=== PATIENT | female | born 1980 | race Hispanic/Latino ===

== ENCOUNTER 2018-11-28 23:06 | Emergency (ER) | payer SELFPAY ==
[2018-11-28] MEDS ORDERED: NA CHLORIDE 0.9% 1,000 ML ONE (23:36)
[2018-11-28] MEDS ORDERED: LABETALOL 20 MG/4ML SYRINGE IV ONE (23:36)
[2018-11-29 00:07] LABS: Absolute Lymphocytes (CBC) 3.8 K/uL (0.7-4.9); Absolute Monocytes 0.5 K/uL (0.1-1.3); Absolute Neutrophil 5.5 K/uL (1.8-8.0); Eosinophils % 0.8 % (0-4.4); Hematocrit 38.9 % (36.0-45.0); Lymphocytes % 37.9 % (15.3-44.8); MPV 9.5 fL (7.6-11.3); Monocytes % 5.1 % (3.3-12.3); RBC Red Blood Cell Count 4.62 M/uL (3.86-4.86)
[2018-11-29 00:22] LABS: Potassium 3.8 mmol/L (3.5-5.1)
[2018-11-29 00:23] LABS: Urine Blood NEGATIVE (NEG); Urine Glucose 2+ (NEG); Urine Protein 1+ (NEG); Urine Specific Gravity 1.005 (1.005-1.030); Urine pH 5.5 (5.0-7.0)
[2018-11-29] MEDS ORDERED: INSULIN -REGULAR HUMAN 50 UNIT/0.5 ML ML ONE (00:40)
--- NOTE | 2018-11-29 01:32 | ER ---
Nurse's Notes [facility] Name: Aida Yan Age: 38 yrs Sex: Female : 1980 Arrival Date: 11/28/2018 Time: 23:08 Bed 13 Private MD: Wilian Willis H Diagnosis: Hyperglycemia, unspecified;Hypertensive Urgency Presentation: 11/28 23:12 Presenting complaint: Patient states: Blood Glucose 430 at home after tonight's dose of tl3 insulin. Transition of care: patient was not received from another setting of care. Onset of symptoms was November 28, 2018. Risk Assessment: Do you want to hurt yourself or someone else? Patient reports no desire to harm self or others. Initial Sepsis Screen: Does the patient meet any 2 criteria? No. Patient's initial sepsis screen is negative. Does the patient have a suspected source of infection? No. Patient's initial sepsis screen is negative. Care prior to arrival: Medication(s) given: Normal saline infusion, novalin 70/30, 30 units. 23:12 Method Of Arrival: Ambulatory tl3 23:12 Acuity: VINICIO 3 tl3 Triage Assessment: 23:14 General: Appears distressed, uncomfortable, Behavior is cooperative, appropriate for tl3 age. Pain: Pain currently is 9 out of 10 on a pain scale. Neuro: Level of Consciousness is awake, alert, obeys commands, Oriented to person, place, time. 23:14 Pain: Also complains of inability to perform activities of daily living. 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 - Social history:: Smoking status: Patient/guardian denies using tobacco, never smoked. - Ebola Screening: : No symptoms or risks identified at this time. Screenin:50 Abuse screen: Denies threats or abuse. Denies injuries from another. Nutritional rr5 screening: No deficits noted. Tuberculosis screening: No symptoms or risk factors identified. Fall Risk Gait- Weak (10 pts.). Total Thompson Fall Scale indicates Low Risk Score (25-44 pts). Fall prevention measures have been instituted. Side Rails Up X 2 Frequent Obs/Assesments occuring As available Patient and Family Educated on Fall Prevention Program and strategies. Assessment: 23:17 General: Appears in no apparent distress. uncomfortable, Behavior is calm, cooperative, rr5 appropriate for age. Pain: Complains of pain in head Pain does not radiate. Pain currently is 7 out of 10 on a pain scale. Quality of pain is described as aching, Pain began gradually, Is intermittent. 23:17 Neuro: Level of Consciousness is awake, alert, obeys commands, Oriented to person, rr5 place, time, situation, Tufting Machine Operator are equal bilaterally Moves all extremities. Full function Gait is unsteady, Speech is normal, Facial symmetry appears normal, Pupils are PERRLA, Reports dizziness, headache. Cardiovascular: Capillary refill < 3 seconds Patient's skin is warm and dry. Respiratory: Airway is patent Respiratory effort is even, unlabored, Respiratory pattern is regular, symmetrical. 23:17 GI: Abdomen is round obese. : No signs and/or symptoms were reported regarding the rr5 genitourinary system. EENT: Reports blurred vision. Derm: Skin is intact, Skin temperature is warm. Musculoskeletal: Capillary refill < 3 seconds, Range of motion: intact in all extremities. 11/29 00:30 Reassessment: Patient appears in no apparent distress at this time. No changes from rr5 previously documented assessment. asleep on bed. 01:29 Reassessment: Patient appears in no apparent distress at this time. Patient and/or rr5 family updated on plan of care and expected duration. Pain level reassessed. Patient is alert, oriented x 3, equal unlabored respirations, skin warm/dry/pink. Patient states feeling better. Patient states symptoms have improved. 01:46 Reassessment: Patient appears in no apparent distress at this time. discharge rr5 instruction given and explained without complaints made. Vital Signs: 11/28 23:14 BP 190 / 100; Pulse 92; Resp 18; Temp 98.8; Pulse Ox 98% ; Weight 90.72 kg; Height 5 tl3 ft. 2 in. (157.48 cm); 23:17 BP 205 / 96; Pulse 97; Resp 15; Pulse Ox 99% ; rr5 23:35 BP 158 / 88; Pulse 83; Resp 17; Pulse Ox 98% ; rr5 23:45 BP 143 / 69; Pulse 82; Resp 17; Pulse Ox 98% ; rr5 11/29 00:35 BP 152 / 83; Pulse 83; Resp 17; Pulse Ox 99% ; rr5 01:29 BP 129 / 61; Pulse 75; Resp 17; Pulse Ox 100% ; rr5 11/28 23:14 Body Mass Index 36.58 (90.72 kg, 157.48 cm) tl3 ED Course: 11/28 23:08 Patient arrived in ED. al2 23:08 Wilian Willis DO is Private Physician. al2 23:12 [facility] jr8 23:13 Francisco Manley MD is Attending Physician. jr8 23:13 Triage completed. tl3 23:14 Arm band placed on right wrist. tl3 23:23 Cristo Lawton RN is Primary Nurse. rr5 23:30 Patient has correct armband on for positive identification. Placed in gown. Bed in low rr5 position. Call light in reach. Side rails up X2. 23:30 Inserted saline lock: 18 gauge in right forearm, using aseptic technique. Blood rr5 collected. 23:32 all purpose clerk on. Pulse ox on. NIBP on. rr5 11/29 00:22 Notified Nurse Practitioner and/or Physician Finance Intern of a critical lab result(s), fc glucose of 457. 01:30 Wilian Willis DO is Referral Physician. jr8 01:47 No provider procedures requiring assistance completed. IV discontinued, intact, rr5 bleeding controlled, No redness/swelling at site. Pressure dressing applied. Administered Medications: 11/28 23:30 Drug: Labetalol 10 mg Route: IVP; Infused Over: 2 mins; Site: right forearm; rr5 11/29 01:47 Follow up: Response: No adverse reaction rr5 11/28 23:30 Drug: NS 0.9% 1000 ml Route: IV; Rate: 1000 ml; Site: right forearm; rr5 11/29 00:39 Follow up: Response: No adverse reaction; IV Status: Completed infusion; IV Intake: rr5 1000ml 00:31 Drug: Insulin Regular Human 10 units {Co-Signature: jd3 (Nick Campos RN).} Route: rr5 IVP; Site: right forearm; 01:47 Follow up: Response: No adverse reaction rr5 Point of Care Testing: Blood Glucose: 11/28 23:21 Blood Glucose: 431 mg/dL; tl3 11/29 00:28 Blood Glucose: 370 mg/dL; rr5 01:29 Blood Glucose: 278 mg/dL; rr5 Ranges: Intake: 00:39 IV: 1000ml; Total: 1000ml. rr5 Outcome: 01:30 Discharge ordered by . jr8 01:47 Discharged to home ambulatory. rr5 01:47 Condition: stable 01:47 Discharge instructions given to patient, Instructed on discharge instructions, follow up and referral plans. Demonstrated understanding of instructions, follow-up care. 01:49 Patient left the ED. rr5 Signatures: Liliam Paz, RN RN Christopher Felix PA PA jr8 Areli Membreno Tammy, RN RN tl3 Cristo Lawton RN RN rr5 Nick Campos RN jd3 Corrections: (The following items were deleted from the chart) 00:05 11/28 23:30 Inserted saline lock: 20 gauge in right forearm, using aseptic technique. rr5 Blood collected. rr5
--- NOTE | 2018-11-29 01:32 | EDPHYS ---
Physician Documentation [facility] Name: Aida Yan Age: 38 yrs Sex: Female : 1980 Arrival Date: 11/28/2018 Time: 23:08 Bed 13 Private MD: Wilian Willis H ED Physician Francisco Manley HPI: 11/29 00:15 This 38 yrs old Female presents to ER via Ambulatory with complaints of jr8 Headache, High Blood Sugar, Blurred Vision. 00:15 Onset: The symptoms/episode began/occurred acutely, today. Associated signs and jr8 symptoms: The patient has no apparent associated signs or symptoms. Severity of symptoms: At its worst the pain was moderate, in the emergency department the pain is unchanged. The patient has not experienced similar symptoms in the past. The patient has not recently seen a physician. Patient stated that she started with [facility] tonight. Checked blood sugar and noted that it was high. Took insulin but was not getting better. Had headache that started shortly after and sugar had elevated even more . 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 - Social history:: Smoking status: Patient/guardian denies using tobacco, never smoked. - Ebola Screening: : No symptoms or risks identified at this time. ROS: 11/29 00:15 Eyes: Negative for injury, pain, redness, and discharge, ENT: Negative for injury, jr8 pain, and discharge, Neck: Negative for injury, pain, and swelling, Respiratory: Negative for shortness of breath, cough, wheezing, and pleuritic chest pain, Abdomen/GI: Negative for abdominal pain, nausea, vomiting, diarrhea, and constipation, Back: Negative for injury and pain, MS/Extremity: Negative for injury and deformity, Skin: Negative for injury, rash, and discoloration. Neuro: Positive for headache, visual changes. Exam: 00:15 Eyes: Pupils equal round and reactive to light, extra-ocular motions intact. Lids and jr8 lashes normal. Conjunctiva and sclera are non-icteric and not injected. Cornea within normal limits. Periorbital areas with no swelling, redness, or edema. ENT: Nares patent. No nasal discharge, no septal abnormalities noted. Tympanic membranes are normal and external auditory canals are clear. Oropharynx with no redness, swelling, or masses, exudates, or evidence of obstruction, uvula midline. Mucous membranes moist. Neck: Trachea midline, no thyromegaly or masses palpated, and no cervical lymphadenopathy. Supple, full range of motion without nuchal rigidity, or vertebral point tenderness. No Meningismus. Cardiovascular: Regular rate and rhythm with a normal S1 and S2. No gallops, murmurs, or rubs. Normal PMI, no JVD. No pulse deficits. Respiratory: Lungs have equal breath sounds bilaterally, clear to auscultation and percussion. No rales, rhonchi or wheezes noted. No increased work of breathing, no retractions or nasal flaring. Abdomen/GI: Soft, non-tender, with normal bowel sounds. No distension or tympany. No guarding or rebound. No evidence of tenderness throughout. Back: No spinal tenderness. No costovertebral tenderness. Full range of motion. Skin: Warm, dry with normal turgor. Normal color with no rashes, no lesions, and no evidence of cellulitis. MS/ Extremity: Pulses equal, no cyanosis. Neurovascular intact. Full, normal range of motion. Neuro: Awake and alert, GCS 15, oriented to person, place, time, and situation. Cranial nerves II-XII grossly intact. Motor strength 5/5 in all extremities. Sensory grossly intact. Cerebellar exam normal. Normal gait. Vital Signs: 11/28 23:14 BP 190 / 100; Pulse 92; Resp 18; Temp 98.8; Pulse Ox 98% ; Weight 90.72 kg; Height 5 tl3 ft. 2 in. (157.48 cm); 23:17 BP 205 / 96; Pulse 97; Resp 15; Pulse Ox 99% ; rr5 23:35 BP 158 / 88; Pulse 83; Resp 17; Pulse Ox 98% ; rr5 23:45 BP 143 / 69; Pulse 82; Resp 17; Pulse Ox 98% ; rr5 11/29 00:35 BP 152 / 83; Pulse 83; Resp 17; Pulse Ox 99% ; rr5 01:29 BP 129 / 61; Pulse 75; Resp 17; Pulse Ox 100% ; rr5 11/28 23:14 Body Mass Index 36.58 (90.72 kg, 157.48 cm) tl3 MDM: 11/28 23:18 Patient medically screened. [facility] 11/29 01:28 Data reviewed: vital signs, nurses notes, lab test result(s), and as a result, I will jr8 discharge patient. Data reviewed: EKG. Data interpreted: Pulse oximetry: on room air is 99 %. Interpretation: normal. Counseling: I had a detailed discussion with the patient and/or guardian regarding: the historical points, exam findings, and any diagnostic results supporting the discharge/admit diagnosis, lab results, the need for outpatient follow up, a family practitioner, to return to the emergency department if symptoms worsen or persist or if there are any questions or concerns that arise at home. Response to treatment: the patient's symptoms have markedly improved after treatment. ED course: Headache and blurred vision have both improved. Glucose to manageable level. Will send home to f/u with PCP. No other acute finding noted at this time . 11/28 23:19 Order name: Basic Metabolic Panel [facility] 11/28 23:19 Order name: CBC with Diff [facility] 11/28 23:33 Order name: Urine Dipstick--Ancillary (enter results) 11/28 23:33 Order name: Urine --Ancillary (enter results) 11/29 00:20 Order name: CBC with Automated Diff; Complete Time: 00:22 [facility] 11/29 00:23 Order name: Urine --Ancillary; Complete Time: 00:25 [facility] 11/28 23:19 Order name: IV Saline Lock; Complete Time: 23:49 [facility] 11/28 23:19 Order name: Labs collected and sent; Complete Time: 23:49 [facility] 11/28 23:19 Order name: EKG - Nurse/Tech; Complete Time: 23:49 [facility] 11/29 00:23 Order name: Urine Dipstick-Ancillary; Complete Time: 00:25 [facility] 11/29 00:24 Order name: Basic Metabolic Panel; Complete Time: 00:25 [facility] 11/28 23:20 Order name: Glucose Level; Complete Time: 23:49 [facility] Administered Medications: 11/28 23:30 Drug: Labetalol 10 mg Route: IVP; Infused Over: 2 mins; Site: right forearm; rr5 11/29 01:47 Follow up: Response: No adverse reaction rr5 11/28 23:30 Drug: NS 0.9% 1000 ml Route: IV; Rate: 1000 ml; Site: right forearm; rr5 11/29 00:39 Follow up: Response: No adverse reaction; IV Status: Completed infusion; IV Intake: rr5 1000ml 00:31 Drug: Insulin Regular Human 10 units {Co-Signature: jd3 (Nick Campos RN).} Route: rr5 IVP; Site: right forearm; 01:47 Follow up: Response: No adverse reaction rr5 Point of Care Testing: Blood Glucose: 11/28 23:21 Blood Glucose: 431 mg/dL; tl3 11/29 00:28 Blood Glucose: 370 mg/dL; rr5 01:29 Blood Glucose: 278 mg/dL; rr5 Ranges: Critical Glucose Levels:Adult <50 mg/dl or >400 mg/dl <40 mg/dl or >180 mg/dl Disposition: 06:29 Co-signature as Attending Physician, Francisco Manley MD I agree with the assessment and hannah plan of care. Disposition: 11/29/18 01:30 Discharged to Home. Impression: Hyperglycemia, unspecified, Hypertensive Urgency . - Condition is Stable. - Discharge Instructions: Hyperglycemia, Hypertension, Blood Glucose Monitoring, Adult. - Medication Reconciliation Form, Thank You Letter, Antibiotic Education, Prescription Opioid Use form. - Follow up: Wilian Willis DO; When: 2 - 3 days; Reason: Recheck today's complaints, Continuance of care, Re-evaluation by your physician. - Problem is new. - Symptoms have improved. Signatures: Dispatcher [employer] Francisco Franks MD MD cha Roszak, Josh, PA PA jr8 Juanita Barry RN RN tl3 Cristo Lawton, AQUILINO RN rr5 Nick Campos RN jd3 Corrections: (The following items were deleted from the chart) 01:49 01:30 11/29/2018 01:30 Discharged to Home. Impression: Hyperglycemia, unspecified; rr5 Hypertensive Urgency . Condition is Stable. Forms are Medication Reconciliation Form, Thank You Letter, Antibiotic Education, Prescription Opioid Use. Follow up: Wilian Willis; When: 2 - 3 days; Reason: Recheck today's complaints, Continuance of care, Re-evaluation by your physician. Problem is new. Symptoms have improved. jr8
[2018-11-29 01:59] VITALS: TEMP 98.8
[2018-11-29 02:13] VITALS: BP 129/61; O2SAT 100
--- NOTE | 2018-11-29 10:23 | EKG ---
Test Date: 2018-11-28 Test Time: 23:39:27 Arresting Gear Operator: RR MEASUREMENT RESULTS: Intervals: Rate: 81 ME: 154 QRSD: 90 QT: 378 QTc: 439 Aguila: P: 36 ME: 154 QRS: 43 T: -11 INTERPRETIVE STATEMENTS: Normal sinus rhythm Nonspecific T wave abnormality Abnormal ECG Compared to ECG 09/23/2017 13:01:39 T-wave abnormality now present Electronically Signed On 11-29-18 10:21:40 DIABETES EDUCATOR by Jayden Marcus
== END 2018-11-29 01:49 | disposition home or self-care (01) ==
LOC: ER 23:06
DX: E11.65 Type 2 diabetes mellitus with hyperglycemia (principal); I16.0 Hypertensive urgency; I10 Essential (primary) hypertension
CPT/HCPCS: 36415; 80048; 81003; 81025; 82962; 85025; 93005; 96361; 96374; 96375; 99284; J7030

== ENCOUNTER 2020-09-12 11:40 | Emergency (ER) | payer SELFPAY ==
--- OUTSIDE RECORDS SUMMARY | 2020-09-12 11:43 | XMS REPORT | Continuity of Care Document ---
:1980 Author Organization [facility] t Address [address] [place] [address] Care Team Providers Name Role Phone Unavailable Unavailable Unavailable Payers Payer Name Policy Type Policy Number Effective Date Expiration Date S ource Problems This patient has no known problems. Allergies, Adverse Reactions, Alerts Allergy Allergy Status Severity Reaction(s) Onset Inactive Treating Comm ents Source Name Type Date Date Clinician No Known DA Active U [facility] Allergie 06-14 [facility] 00[facility] Medications This patient has no known medications. Procedures This patient has no known procedures. Results Test Description Test Time Test Comments Results Result Comments Source B-TYPE NATRIURETIC PEPTIDE 2020-06-15 21:58:00 Test Item Value Reference Range Interpretation Comme nts B-TYPE NATRIURETIC PEPTIDE (test code = BNP) 63.3 PG/ML 0-100 N PROTHROMBIN [id number] 21:51:00 Test Item Value Reference Interpretation Comments Range PROTHROMBIN TIME 10.3 SECONDS 8.7-12.1 N THERAPEUTIC LEVEL: 1.5 TO PATIENT (test code 1.9 TIMES NORMAL RANGE = PTP) INTERNATIONAL 0.9 Recommended Th erapeutic NORMAL RATIO (test PT Ratios For Oral code = INR) AnticoagulantTh erapy. CONDITION INT'L N ORMALIZED PT RATIO------- --- Prophylaxis of venous thrombosis 2.0 - 3.0in [facility] medical or surgicalpati ents, treatment of venousthrombosi s, prevention of e mbolism. Prevention of r ecurrent embolism, 2.5 - 3.5or treatment of patients with mechanicalprost hetic heart valves. LAB ANTICOAGULANT QUERY NOTHROMBOPLASTIN TIME [id number] 21:51:00 Test Item Value Reference Range Interpretation Comments THROMBOPLASTIN TIME PARTIAL 31.0 seconds 22.8-34.4 N (test code = PTT) LAB ANTICOAGULANT QUERY NOD-DIMER [id number] 21:51:00 Test Item Value Reference Range Interpretation Comments D-DIMER QUANT 0.41 mg/L FEU <0.59 "D-DIMER CUT OFF OF 0.50 (test code = mg/L (FEU) IS U SEFUL TO DDIMER) EXCLUDE DXOF DVT/PEExpected value(RI) is less than 0. 59mg/L (FEU) for quynh lhealthy subjects."Lynda landa note: Results of D-di jennifer assays should a lways beinterpreted i n conjunction wit h the patient's medicalhistory, clinical presentation/pr obability and otherfindin gs. LAB ANTICOAGULANT QUERY NOBASIC METABOLIC [id number] 21:50:00 Test Item Value Reference Range Interpretation Comments SODIUM (test code = 136 mmol/L 136-145 N NA) POTASSIUM (test code = 3.5 mmol/L 3.5-5.1 N K) CHLORIDE (test code = 106 mmol/L 98-107 N CL) CARBON DIOXIDE (test 22 mmol/L 21-32 N code = CO2) GLUCOSE (test code = 314 mg/dL 70-100 H GLU) BLOOD UREA NITROGEN 12 mg/dL 7-18 N (test code = BUN) GLOMERULAR FILTRATION > 60.00 >=60 Report ing units: RATE (test code = GFR) mL/mi n/1.73m\\S\\2 (Modified MDRD formula)REFEREN CE RANGE: > or = 6 0 ml/min/1.73M2IF PATIENT IS -CHI N, MULTIPLY REPORT ED RESULT BY1.21. CREATININE (test code 0.90 mg/dL 0.51-0.95 N = CREAT) CALCIUM (test code = 8.3 mg/dL 8.5-10.1 L CA) [id number] 21:50:00 Test Item Value Reference Range Interpretation Comments TROPONIN-I (test <0.015 ng/ml 0.00-0.045 N GUIDELINES: 0.08 - 0.09 code = TROPI) Indeterminate0 .10 Risk Stratifica tion Limit: Suggest sequential te sting0.60 - 1.50 AMI cut off: Myocardial Inju ry by WHO criteria CBC W/AUTO [id number] 21:49:00 Test Item Value Reference Range Interpretation Comments WHITE BLOOD CELL (test code = 15.9 X10(3) 4.5-11.0 H WBC) RED BLOOD CELL (test code = 4.58 X10(6) 4.2-5.4 N RBC) HEMOGLOBIN (test code = HGB) 12.3 g/dL 12.5-16.0 L HEMATOCRIT (test code = HCT) 38.7 % 37.0-47.0 N MEAN CELL VOLUME (test code = 84.5 fl 78-100 N MCV) MEAN CELL HGB (test code = MCH) 26.9 pg 26.0-34.0 N MEAN CELL HGB CONCETRATION 31.8 g/dl 30.0-37.0 N (test code = MCHC) RED CELL DISTRIBUTION WIDTH 13.5 % 11.5-14.5 N (test code = RDW) PLATELET COUNT (test code = 350 X10(3) 150-350 N PLT) MEAN PLATELET VOLUME (test code 11.0 fl 8.7-11.4 N = MPV) NEUTROPHIL % (test code = NT%) 81.6 % 36.0-66.0 H IMMATURE GRANULOCYTE % (test 0.4 % 0.0-2.0 N code = IG%) LYMPHOCYTE % (test code = LY%) 14.9 % 16.0-50.0 L MONOCYTE % (test code = MO%) 3.0 % 0.0-13.0 N EOSINOPHIL % (test code = EO%) 0.0 % 0.0-4.5 N BASOPHIL % (test code = BA%) 0.1 % 0.0-1.5 N NUCLEATED RBC % (test code = 0.0 % 0-0.2 N NRBC%) NEUTROPHIL # (test code = NT#) 12.95 X10(3) 1.70-7.70 H IMMATURE GRANULOCYTE # (test 0.07 X10(3)uL 0.00-0.03 H code = IG#) LYMPHOCYTE # (test code = LY#) 2.36 X10(3) 0.70-4.00 N MONOCYTE # (test code = MO#) 0.47 X10(3) 0.00-0.89 N EOSINOPHIL # (test code = EO#) 0.00 X10(3) 0.00-0.60 N BASOPHIL # (test code = BA#) 0.02 X10(3) 0.00-0.20 N NUCLEATED RBC # (test code = 0.00 K/mm3 0.0-0.1 N NRBC#) BASIC METABOLIC [id number] 21:45:00 Test Item Value Reference Range Interpretation Comments SODIUM (test code = 136 mmol/L 136-145 N NA) POTASSIUM (test code = 3.5 mmol/L 3.5-5.1 N K) CHLORIDE (test code = 106 mmol/L 98-107 N CL) CARBON DIOXIDE (test 22 mmol/L 21-32 N code = CO2) GLUCOSE (test code = 314 mg/dL 70-100 H GLU) BLOOD UREA NITROGEN 12 mg/dL 7-18 N (test code = BUN) GLOMERULAR FILTRATION > 60.00 >=60 Report ing units: RATE (test code = GFR) mL/mi n/1.73m\\S\\2 (Modified MDRD formula)REFEREN CE RANGE: > or = 6 0 ml/min/1.73M2IF PATIENT IS -CHI N, MULTIPLY REPORT ED RESULT BY1.21. CREATININE (test code 0.90 mg/dL 0.51-0.95 N = CREAT) CALCIUM (test code = 8.3 mg/dL 8.5-10.1 L CA) [id number] 21:45:00 Test Item Value Reference Range Interpretation Comments TROPONIN-I (test code = TROPI) ng/ml 0.00-0.045 - XR CHEST 1 [id number] 21:45:00 [facility] Name: WANDA CISSE [address] [facility] Phys: Saman Brown MD [place], [place] [address] : 1980 Age: 39 Sex: F Acct: [id number] Loc: RENAE PHONE #: [phone] Exam Date: 06/15/2020 Status: REG ER FAX #: [phone] Radiology No: Unit No: [id number] Reason: acc htn, rales, hypoxia EXAMS: CPT CODE: [id number] XR CHEST 1 V 83016 Fluoro Time: DAP (Gy m2): Air Kerma (mGy): EXAM: - XR CHEST 1 V HISTORY: Shortness of breath. COMPARISON: 06/14/2020 FINDINGS: Single AP view ofthe chest is provided. Heart size and vascularity are within normal limits. Hypoinflation of the lungs. Patchy linear opacities are present in mid and lower lungs more on left side. No effusion, pneumothorax, or acute osseous abnormality. IMPRESSION: Bilateral pulmonary linear opacities may represent viral pneumonia. at 2144 Reported and signed by: YENY SIMMS M.D. CC: Saman Brown MD Technologist: Irma Chacon, RT (R) Transcribed Date/Time: 06/15/2020 (2144) [email or web address] Orig Print D/T: S: 0 06/15/2020 (2147) PAGE 1 Signed ReportBASIC METABOLIC [id number] 21:42:00 Test Item Value Reference Range Interpretation Comments SODIUM (test code = NA) 136 mmol/L 136-145 N POTASSIUM (test code = K) 3.5 mmol/L 3.5-5.1 N CHLORIDE (test code = CL) 106 mmol/L 98-107 N CARBON DIOXIDE (test code = CO2) 22 mmol/L 21-32 N GLUCOSE (test code = GLU) 314 mg/dL 70-100 H BLOOD UREA NITROGEN (test code = 12 mg/dL 7-18 N BUN) GLOMERULAR FILTRATION RATE (test >=60 code = GFR) CREATININE (test code = CREAT) mg/dL 0.51-0.95 CALCIUM (test code = CA) 8.3 mg/dL 8.5-10.1 L [id number] 21:42:00 Test Item Value Reference Range Interpretation Comments TROPONIN-I (test code = TROPI) ng/ml 0.00-0.045 BASIC METABOLIC [id number] 21:41:00 Test Item Value Reference Range Interpretation Comments SODIUM (test code = NA) 136 mmol/L 136-145 N POTASSIUM (test code = K) 3.5 mmol/L 3.5-5.1 N CHLORIDE (test code = CL) 106 mmol/L 98-107 N CARBON DIOXIDE (test code = CO2) mmol/L 21-32 GLUCOSE (test code = GLU) mg/dL 70-100 BLOOD UREA NITROGEN (test code = mg/dL 7-18 BUN) GLOMERULAR FILTRATION RATE (test >=60 code = GFR) CREATININE (test code = CREAT) mg/dL 0.51-0.95 CALCIUM (test code = CA) 8.3 mg/dL 8.5-10.1 L [id number] 21:41:00 Test Item Value Reference Range Interpretation Comments TROPONIN-I (test code = TROPI) ng/ml 0.00-0.045 BASIC METABOLIC [id number] 21:40:00 Test Item Value Reference Range Interpretation Comments SODIUM (test code = NA) 136 mmol/L 136-145 N POTASSIUM (test code = K) 3.5 mmol/L 3.5-5.1 N CHLORIDE (test code = CL) 106 mmol/L 98-107 N CARBON DIOXIDE (test code = CO2) mmol/L 21-32 GLUCOSE (test code = GLU) mg/dL 70-100 BLOOD UREA NITROGEN (test code = mg/dL 7-18 BUN) GLOMERULAR FILTRATION RATE (test >=60 code = GFR) CREATININE (test code = CREAT) mg/dL 0.51-0.95 CALCIUM (test code = CA) mg/dL 8.5-10.1 [id number] 21:40:00 Test Item Value Reference Range Interpretation Comments TROPONIN-I (test code = TROPI) ng/ml 0.00-0.045 PROTHROMBIN [id number] 13:49:00 Test Item Value Reference Interpretation Comments Range PROTHROMBIN TIME 10.5 SECONDS 8.7-12.1 N THERAPEUTIC LEVEL: 1.5 TO PATIENT (test code 1.9 TIMES NORMAL RANGE = PTP) INTERNATIONAL 1.0 Recommended Th erapeutic NORMAL RATIO (test PT Ratios For Oral code = INR) AnticoagulantTh erapy. CONDITION INT'L N ORMALIZED PT RATIO------- --- Prophylaxis of venous thrombosis 2.0 - 3.0in [facility] medical or surgicalpati ents, treatment of venousthrombosi s, prevention of e mbolism. Prevention of r ecurrent embolism, 2.5 - 3.5or treatment of patients with mechanicalprost hetic heart valves. THROMBOPLASTIN TIME [id number] 13:49:00 Test Item Value Reference Range Interpretation Comments THROMBOPLASTIN TIME PARTIAL 35.2 seconds 22.8-34.4 H (test code = PTT) BASIC METABOLIC [id number] 13:35:00 Test Item Value Reference Range Interpretation Comments SODIUM (test code = 133 mmol/L 136-145 L NA) POTASSIUM (test code = 3.5 mmol/L 3.5-5.1 N K) CHLORIDE (test code = 103 mmol/L 98-107 N CL) CARBON DIOXIDE (test 26 mmol/L 21-32 N code = CO2) GLUCOSE (test code = 201 mg/dL 70-100 H GLU) BLOOD UREA NITROGEN 12 mg/dL 7-18 N (test code = BUN) GLOMERULAR FILTRATION 55.89 >=60 L Report ing units: RATE (test code = GFR) mL/mi n/1.73m\\S\\2 (Modified MDRD formula)REFEREN CE RANGE: > or = 6 0 ml/min/1.73M2IF PATIENT IS -CHI N, MULTIPLY REPORT ED RESULT BY1.21. CREATININE (test code 1.10 mg/dL 0.51-0.95 H = CREAT) CALCIUM (test code = 8.6 mg/dL 8.5-10.1 N CA) LIVER [id number] 13:35:00 Test Item Value Reference Range Interpretation Comments TOTAL PROTEIN (test code = PROT) 8.2 g/dl 6.4-8.2 N ALBUMIN (test code = ALB) 2.6 g/dl 3.4-5.0 L BILIRUBIN TOTAL (test code = BILT) 0.7 mg/dl 0.2-1.0 N BILIRUBIN DIRECT (test code = 0.20 mg/dl 0.0-0.4 N BILD) SGOT/AST (test code = AST) 34 U/L 15-37 N SGPT/ALT (test code = ALT) 40 U/L 12-78 N ALKALINE PHOSPHATASE TOTAL (test 88 U/L 50-136 N code = ALKP) [id number] 13:35:00 Test Item Value Reference Range Interpretation Comments TROPONIN-I (test <0.015 ng/ml 0.00-0.045 N GUIDELINES: 0.08 - 0.09 code = TROPI) Indeterminate0 .10 Risk Stratifica tion Limit: Suggest sequential te sting0.60 - 1.50 AMI cut off: Myocardial Inju ry by WHO criteria BASIC METABOLIC [id number] 13:33:00 Test Item Value Reference Range Interpretation Comments SODIUM (test code = 133 mmol/L 136-145 L NA) POTASSIUM (test code = 3.5 mmol/L 3.5-5.1 N K) CHLORIDE (test code = 103 mmol/L 98-107 N CL) CARBON DIOXIDE (test 26 mmol/L 21-32 N code = CO2) GLUCOSE (test code = 201 mg/dL 70-100 H GLU) BLOOD UREA NITROGEN 12 mg/dL 7-18 N (test code = BUN) GLOMERULAR FILTRATION 55.89 >=60 L Report ing units: RATE (test code = GFR) mL/mi n/1.73m\\S\\2 (Modified MDRD formula)REFEREN CE RANGE: > or = 6 0 ml/min/1.73M2IF PATIENT IS -CHI N, MULTIPLY REPORT ED RESULT BY1.21. CREATININE (test code 1.10 mg/dL 0.51-0.95 H = CREAT) CALCIUM (test code = 8.6 mg/dL 8.5-10.1 N CA) LIVER [id number] 13:33:00 Test Item Value Reference Range Interpretation Comments TOTAL PROTEIN (test code = PROT) 8.2 g/dl 6.4-8.2 N ALBUMIN (test code = ALB) 2.6 g/dl 3.4-5.0 L BILIRUBIN TOTAL (test code = BILT) 0.7 mg/dl 0.2-1.0 N BILIRUBIN DIRECT (test code = 0.20 mg/dl 0.0-0.4 N BILD) SGOT/AST (test code = AST) 34 U/L 15-37 N SGPT/ALT (test code = ALT) 40 U/L 12-78 N ALKALINE PHOSPHATASE TOTAL (test 88 U/L 50-136 N code = ALKP) [id number] 13:33:00 Test Item Value Reference Range Interpretation Comments TROPONIN-I (test code = TROPI) ng/ml 0.00-0.045 - XR CHEST 1 [id number] 13:33:00 [facility] Name: WANDA CISSE [address] [place] [address] Phys: Cal Henning Jr, MD [place], [place] [address] : 1980 Age: 39 Sex: F Acct: [id number] Loc: RENAE PHONE #: [phone] Exam Date: 06/14/2020 Status: REG ER FAX #: [phone] Radiology No: Unit No: [id number] Reason: Code sepsis EXAMS: CPT CODE: [id number] XR CHEST 1 V 81364 Fluoro Time: DAP (Gy m2): Air Kerma (mGy): EXAM: Portable chest one view. Location code:J9 HISTORY: sob COMPARISON: None available. COMMENT: . Prominent interstitial lung markings.. No focal consolidation, large pleural effusion, or pneumo thorax.. Cardiac silhouette is normal in size and contour. Visualized skeletal structures are unremarkable. IMPRESSION: Prominent interstitial lung markings. at 1333 Reported and signed by: JOHN CONN M.D.CC: Technologist: Rox Ramos, RT (R) Transcribed Date/Time: 06/14/2020 (9523) [id number] Orig Print D/T: S: 06/14/2020 (9968) PAGE 1 Signed ReportBASIC METABOLIC [id number] 13:32:00 Test Item Value Reference Range Interpretation Comments SODIUM (test code = 133 mmol/L 136-145 L NA) POTASSIUM (test code = 3.5 mmol/L 3.5-5.1 N K) CHLORIDE (test code = 103 mmol/L 98-107 N CL) CARBON DIOXIDE (test 26 mmol/L 21-32 N code = CO2) GLUCOSE (test code = 201 mg/dL 70-100 H GLU) BLOOD UREA NITROGEN 12 mg/dL 7-18 N (test code = BUN) GLOMERULAR FILTRATION 55.89 >=60 L Report ing units: RATE (test code = GFR) mL/mi n/1.73m\\S\\2 (Modified MDRD formula)REFEREN CE RANGE: > or = 6 0 ml/min/1.73M2IF PATIENT IS -CHI N, MULTIPLY REPORT ED RESULT BY1.21. CREATININE (test code 1.10 mg/dL 0.51-0.95 H = CREAT) CALCIUM (test code = 8.6 mg/dL 8.5-10.1 N CA) LIVER [id number] 13:32:00 Test Item Value Reference Range Interpretation Comments TOTAL PROTEIN (test code = PROT) 8.2 g/dl 6.4-8.2 N ALBUMIN (test code = ALB) 2.6 g/dl 3.4-5.0 L BILIRUBIN TOTAL (test code = BILT) 0.7 mg/dl 0.2-1.0 N BILIRUBIN DIRECT (test code = 0.20 mg/dl 0.0-0.4 N BILD) SGOT/AST (test code = AST) 34 U/L 15-37 N SGPT/ALT (test code = ALT) 40 U/L 12-78 N ALKALINE PHOSPHATASE TOTAL (test U/L 50-136 code = ALKP) [id number] 13:32:00 Test Item Value Reference Range Interpretation Comments TROPONIN-I (test code = TROPI) ng/ml 0.00-0.045 BASIC METABOLIC [id number] 13:30:00 Test Item Value Reference Range Interpretation Comments SODIUM (test code = 133 mmol/L 136-145 L NA) POTASSIUM (test code = 3.5 mmol/L 3.5-5.1 N K) CHLORIDE (test code = 103 mmol/L 98-107 N CL) CARBON DIOXIDE (test 26 mmol/L 21-32 N code = CO2) GLUCOSE (test code = 201 mg/dL 70-100 H GLU) BLOOD UREA NITROGEN 12 mg/dL 7-18 N (test code = BUN) GLOMERULAR FILTRATION 55.89 >=60 L Report ing units: RATE (test code = GFR) mL/mi n/1.73m\\S\\2 (Modified MDRD formula)REFEREN CE RANGE: > or = 6 0 ml/min/1.73M2IF PATIENT IS -CHI N, MULTIPLY REPORT ED RESULT BY1.21. CREATININE (test code 1.10 mg/dL 0.51-0.95 H = CREAT) CALCIUM (test code = 8.6 mg/dL 8.5-10.1 N CA) LIVER [id number] 13:30:00 Test Item Value Reference Range Interpretation Comments TOTAL PROTEIN (test code = PROT) g/dl 6.4-8.2 ALBUMIN (test code = ALB) 2.6 g/dl 3.4-5.0 L BILIRUBIN TOTAL (test code = BILT) mg/dl 0.2-1.0 BILIRUBIN DIRECT (test code = 0.20 mg/dl 0.0-0.4 N BILD) SGOT/AST (test code = AST) 34 U/L 15-37 N SGPT/ALT (test code = ALT) 40 U/L 12-78 N ALKALINE PHOSPHATASE TOTAL (test U/L 50-136 code = ALKP) [id number] 13:30:00 Test Item Value Reference Range Interpretation Comments TROPONIN-I (test code = TROPI) ng/ml 0.00-0.045 BASIC METABOLIC [id number] 13:27:00 Test Item Value Reference Range Interpretation Comments SODIUM (test code = NA) 133 mmol/L 136-145 L POTASSIUM (test code = K) 3.5 mmol/L 3.5-5.1 N CHLORIDE (test code = CL) 103 mmol/L 98-107 N CARBON DIOXIDE (test code = CO2) 26 mmol/L 21-32 N GLUCOSE (test code = GLU) 201 mg/dL 70-100 H BLOOD UREA NITROGEN (test code = 12 mg/dL 7-18 N BUN) GLOMERULAR FILTRATION RATE (test >=60 code = GFR) CREATININE (test code = CREAT) mg/dL 0.51-0.95 CALCIUM (test code = CA) 8.6 mg/dL 8.5-10.1 N LIVER [id number] 13:27:00 Test Item Value Reference Range Interpretation Comments TOTAL PROTEIN (test code = PROT) g/dl 6.4-8.2 ALBUMIN (test code = ALB) 2.6 g/dl 3.4-5.0 L BILIRUBIN TOTAL (test code = BILT) mg/dl 0.2-1.0 BILIRUBIN DIRECT (test code = BILD) mg/dl 0.0-0.4 SGOT/AST (test code = AST) U/L 15-37 SGPT/ALT (test code = ALT) U/L 12-78 ALKALINE PHOSPHATASE TOTAL (test U/L 50-136 code = ALKP) [id number] 13:27:00 Test Item Value Reference Range Interpretation Comments TROPONIN-I (test code = TROPI) ng/ml 0.00-0.045 BASIC METABOLIC [id number] 13:25:00 Test Item Value Reference Range Interpretation Comments SODIUM (test code = NA) 133 mmol/L 136-145 L POTASSIUM (test code = K) 3.5 mmol/L 3.5-5.1 N CHLORIDE (test code = CL) 103 mmol/L 98-107 N CARBON DIOXIDE (test code = CO2) mmol/L 21-32 GLUCOSE (test code = GLU) mg/dL 70-100 BLOOD UREA NITROGEN (test code = mg/dL 7-18 BUN) GLOMERULAR FILTRATION RATE (test >=60 code = GFR) CREATININE (test code = CREAT) mg/dL 0.51-0.95 CALCIUM (test code = CA) mg/dL 8.5-10.1 LIVER [id number] 13:25:00 Test Item Value Reference Range Interpretation Comments TOTAL PROTEIN (test code = PROT) g/dl 6.4-8.2 ALBUMIN (test code = ALB) g/dl 3.4-5.0 BILIRUBIN TOTAL (test code = BILT) mg/dl 0.2-1.0 BILIRUBIN DIRECT (test code = BILD) mg/dl 0.0-0.4 SGOT/AST (test code = AST) U/L 15-37 SGPT/ALT (test code = ALT) U/L 12-78 ALKALINE PHOSPHATASE TOTAL (test code U/L 50-136 = ALKP) [id number] 13:25:00 Test Item Value Reference Range Interpretation Comments TROPONIN-I (test code = TROPI) ng/ml 0.00-0.045 CBC W/AUTO [id number] 13:20:00 Test Item Value Reference Range Interpretation Comments WHITE BLOOD CELL (test code = 9.8 X10(3) 4.5-11.0 N WBC) RED BLOOD CELL (test code = 4.79 X10(6) 4.2-5.4 N RBC) HEMOGLOBIN (test code = HGB) 12.9 g/dL 12.5-16.0 N HEMATOCRIT (test code = HCT) 41.2 % 37.0-47.0 N MEAN CELL VOLUME (test code = 86.0 fl 78-100 N MCV) MEAN CELL HGB (test code = MCH) 26.9 pg 26.0-34.0 N MEAN CELL HGB CONCETRATION 31.3 g/dl 30.0-37.0 N (test code = MCHC) RED CELL DISTRIBUTION WIDTH 13.5 % 11.5-14.5 N (test code = RDW) PLATELET COUNT (test code = 263 X10(3) 150-350 N PLT) MEAN PLATELET VOLUME (test code 11.3 fl 8.7-11.4 N = MPV) NEUTROPHIL % (test code = NT%) 70.6 % 36.0-66.0 H IMMATURE GRANULOCYTE % (test 0.3 % 0.0-2.0 N code = IG%) LYMPHOCYTE % (test code = LY%) 26.2 % 16.0-50.0 N MONOCYTE % (test code = MO%) 2.8 % 0.0-13.0 N EOSINOPHIL % (test code = EO%) 0.0 % 0.0-4.5 N BASOPHIL % (test code = BA%) 0.1 % 0.0-1.5 N NUCLEATED RBC % (test code = 0.0 % 0-0.2 N NRBC%) NEUTROPHIL # (test code = NT#) 6.91 X10(3) 1.70-7.70 N IMMATURE GRANULOCYTE # (test 0.03 X10(3)uL 0.00-0.03 N code = IG#) LYMPHOCYTE # (test code = LY#) 2.56 X10(3) 0.70-4.00 N MONOCYTE # (test code = MO#) 0.27 X10(3) 0.00-0.89 N EOSINOPHIL # (test code = EO#) 0.00 X10(3) 0.00-0.60 N BASOPHIL # (test code = BA#) 0.01 X10(3) 0.00-0.20 N NUCLEATED RBC # (test code = 0.00 K/mm3 0.0-0.1 N NRBC#) LACTIC [id number] 13:15:00 Test Item Value Reference Range Interpretation Comments LACTIC ACID (test code = LACT) 1.5 mmol/l 0.4-2.0 N
[2020-09-12] MEDS ORDERED: IBUPROFEN 400 MG TAB ONE (12:12)
[2020-09-12] MEDS ORDERED: ACETAMINOPHEN 500 MG TAB ONE (12:12)
--- NOTE | 2020-09-12 12:59 | EDPHYS ---
Physician Documentation [facility] Name: Aida Yan Age: 40 yrs Sex: Female : 1980 Arrival Date: 09/12/2020 Time: 11:43 Bed 5 Private MD: ED Physician Rod Camejo HPI: 09/12 12:00 This 40 yrs old Female presents to ER via Ambulatory with complaints of Foot cp Pain. 12:00 The patient presents with pain. The complaints affect the plantar surface and medial cp aspect of left foot. Onset: The symptoms/episode began/occurred 8 month(s) ago. 12:02 The patient or guardian reports pain. cp 12:02 The complaints affect the aguilar side mid fourth metacarpal. Context: resulted from an cp unknown cause. Onset: The symptoms/episode began/occurred for months. Historical: - Allergies: 11:49 No Known Allergies; iw - Home Meds: 11:49 Novolin N 100 unit/mL Sub-Q susp daily [Active]; lisinopril 20 mg Oral tab 1 tab twice iw a day [Active]; - PMHx: 11:49 Diabetes - NIDDM; Hypertension; iw - PSHx: 11:49 ; iw - Immunization history:: Adult Immunizations not up to date. - Social history:: Smoking status: Patient denies any tobacco usage or history of. ROS: 12:05 MS/extremity: Positive for pain, tenderness, of the left hand and left foot, Negative cp for injury or acute deformity, decreased range of motion, paresthesias. 12:05 Constitutional: Negative for fever. cp 12:05 Skin: Negative for cellulitis, rash. 12:05 Neuro: Negative for weakness. 12:05 All other systems are negative. Exam: 12:10 Constitutional: The patient appears in no acute distress, alert, awake, non-toxic, well cp developed, well nourished. 12:10 Musculoskeletal/extremity: Extremities: grossly normal except: noted in the left hand cp aguilar side mid fourth metacarpal: pain, swelling, tenderness, tender palpable mobile mass, There is no evidence of erythema, noted in the plantar surface mid left foot: pain, tenderness, no evidence of erythema. 12:10 Skin: cellulitis, is not appreciated, no rash present. Vital Signs: 11:46 BP 207 / 91; Pulse 82; Resp 16; Pulse Ox 100% on R/A; Weight 81.65 kg; Height 5 ft. 2 iw in. (157.48 cm); Pain 9/10; 12:06 BP 169 / 86; Pulse 79; Resp 18; Pulse Ox 100% on R/A; em 13:00 BP 159 / 90; Pulse 76; Resp 18; Pulse Ox 100% on R/A; em 11:46 Body Mass Index 32.92 (81.65 kg, 157.48 cm) iw MDM: 11:58 Patient medically screened. cp 12:58 Data reviewed: vital signs, nurses notes, radiologic studies, plain films, and as a cp result, I will discharge patient. 12:58 Counseling: I had a detailed discussion with the patient and/or guardian regarding: the cp historical points, exam findings, and any diagnostic results supporting the discharge/admit diagnosis, radiology results, the need for outpatient follow up, a hand specialist, a orthopedic surgeon, to return to the emergency department if symptoms worsen or persist or if there are any questions or concerns that arise at home. 09/12 11:57 Order name: XRAY Hand LEFT 3 View cp 09/12 11:57 Order name: XRAY Foot LEFT 3 View cp Administered Medications: 12:02 Drug: Tylenol 1000 mg Route: PO; em 13:09 Follow up: Response: No adverse reaction; Marked relief of symptoms; Pain is decreased em 12:02 Drug: Ibuprofen 800 mg Route: PO; em 13:09 Follow up: Response: No adverse reaction; Marked relief of symptoms; Pain is decreased em Disposition: 13:05 Chart complete. cp 16:01 Co-signature as Attending Physician, Rod Camejo MD I agree with the assessment and kdr plan of care. Disposition: 09/12/20 12:59 Discharged to Home. Impression: Pain in left foot, Pain in left hand. - Condition is Stable. - Discharge Instructions: Plantar Fasciitis, Foot Pain, Hand Pain. - Prescriptions for Diclofenac Sodium 75 mg Oral Tablet, Delayed Release (E.C.) - take 1 tablet by ORAL route 2 times per day; 20 tablet. Tramadol 50 mg Oral Tablet - take 1 tablet by ORAL route every 8 hours as needed; 12 tablet. - Medication Reconciliation Form, Thank You Letter, Antibiotic Education, Prescription Opioid Use form. - Follow up: Dave Bustillos MD; When: 2 - 3 days; Reason: left hand pain. Follow up: Darin King DPM; When: 2 - 3 days; Reason: left foot pain. - Problem is an ongoing problem. - Symptoms have improved. Signatures: Dispatcher [employer] Rod Fernandez MD MD [facility] Harish Alfred RN RN em Elyssa Reboleldo RN RN iw Francisco Edwards PA PA cp Corrections: (The following items were deleted from the chart) 13:10 12:59 09/12/2020 12:59 Discharged to Home. Impression: Pain in left foot; Pain in left em hand. Condition is Stable. Forms are Medication Reconciliation Form, Thank You Letter, Antibiotic Education, Prescription Opioid Use. Follow up: Dave Bustillos; When: 2 - 3 days; Reason: left hand pain. Follow up: Darin King; When: 2 - 3 days; Reason: left foot pain. Problem is an ongoing problem. Symptoms have improved. cp
--- NOTE | 2020-09-12 12:59 | ER ---
Nurse's Notes [facility] Name: Aida Yan Age: 40 yrs Sex: Female : 1980 Arrival Date: 09/12/2020 Time: 11:43 Bed 5 Private MD: Diagnosis: Pain in left foot;Pain in left hand Presentation: 09/12 11:46 Chief complaint: Patient states: has been having pain to bottom of left foot for over a iw year but got worse last night, feels like there is a baseball under her foot. Coronavirus screen: At this time, the client does not indicate any symptoms associated with coronavirus-19. Coronavirus screen: Client reports previous positive COVID test result. Date of collection: May 2020. Ebola Screen: Patient negative for fever greater than or equal to 101.5 degrees Fahrenheit, and additional compatible Ebola Virus Disease symptoms Patient denies exposure to infectious person. Patient denies travel to an Ebola-affected area in the 21 days before illness onset. No symptoms or risks identified at this time. Initial Sepsis Screen: Does the patient meet any 2 criteria? No. Patient's initial sepsis screen is negative. Does the patient have a suspected source of infection? No. Patient's initial sepsis screen is negative. Risk Assessment: Do you want to hurt yourself or someone else? Patient reports no desire to harm self or others. Onset of symptoms was 2019. 11:46 Method Of Arrival: Ambulatory iw 11:46 Acuity: VINICIO 4 iw Historical: - Allergies: 11:49 No Known Allergies; iw - Home Meds: 11:49 Novolin N 100 unit/mL Sub-Q susp daily [Active]; lisinopril 20 mg Oral tab 1 tab twice iw a day [Active]; - PMHx: 11:49 Diabetes - NIDDM; Hypertension; iw - PSHx: 11:49 ; iw - Immunization history:: Adult Immunizations not up to date. - Social history:: Smoking status: Patient denies any tobacco usage or history of. Screenin:04 Abuse screen: Denies threats or abuse. Nutritional screening: No deficits noted. em Tuberculosis screening: No symptoms or risk factors identified. Fall Risk None identified. Assessment: 12:06 General: Appears in no apparent distress. comfortable, well groomed, well developed, em well nourished, Behavior is calm, cooperative, appropriate for age. Pain: Complains of pain in left foot Pain currently is 9 out of 10 on a pain scale. Pain began 8 months ago. Neuro: Level of Consciousness is awake, alert, obeys commands, Oriented to person, place, time, situation, Appropriate for age. Cardiovascular: Capillary refill < 3 seconds Patient's skin is warm and dry. Respiratory: Airway is patent Respiratory effort is even, unlabored, Respiratory pattern is regular, symmetrical. GI: No deficits noted. : No deficits noted. EENT: No deficits noted. Derm: Skin is intact, is healthy with good turgor, Skin is pink, warm \T\ dry. Musculoskeletal: Capillary refill < 3 seconds, Range of motion: intact in all extremities. 13:08 Reassessment: Patient appears in no apparent distress at this time. Patient and/or em family updated on plan of care and expected duration. Pain level reassessed. Patient is alert, oriented x 3, equal unlabored respirations, skin warm/dry/pink. Patient states feeling better. Vital Signs: 11:46 BP 207 / 91; Pulse 82; Resp 16; Pulse Ox 100% on R/A; Weight 81.65 kg; Height 5 ft. 2 iw in. (157.48 cm); Pain 9/10; 12:06 BP 169 / 86; Pulse 79; Resp 18; Pulse Ox 100% on R/A; em 13:00 BP 159 / 90; Pulse 76; Resp 18; Pulse Ox 100% on R/A; em 11:46 Body Mass Index 32.92 (81.65 kg, 157.48 cm) iw ED Course: 11:43 Patient arrived in ED. as 11:48 Triage completed. iw 11:51 Harish Alfred, AQUILINO is Primary Nurse. em 11:51 Francisco Edwards PA is PHCP. cp 11:51 Rod Camejo MD is Attending Physician. cp 12:04 Patient has correct armband on for positive identification. Bed in low position. Call em light in reach. Pulse ox on. NIBP on. 12:35 XRAY Hand LEFT 3 View In Process Unspecified. EDMS 12:36 XRAY Foot LEFT 3 View In Process Unspecified. EDMS 12:57 Dave Bustillos MD is Referral Physician. cp 12:58 Darin King DPM is Referral Physician. cp 13:07 No provider procedures requiring assistance completed. Patient did not have IV access em during this emergency room visit. Administered Medications: 12:02 Drug: Tylenol 1000 mg Route: PO; em 13:09 Follow up: Response: No adverse reaction; Marked relief of symptoms; Pain is decreased em 12:02 Drug: Ibuprofen 800 mg Route: PO; em 13:09 Follow up: Response: No adverse reaction; Marked relief of symptoms; Pain is decreased em Outcome: 12:59 Discharge ordered by MD. cp 13:07 Discharged to home ambulatory. em 13:07 Condition: good 13:07 Discharge instructions given to patient, Instructed on discharge instructions, follow up and referral plans. medication usage, Demonstrated understanding of instructions, follow-up care, medications, Prescriptions given X 2. 13:10 Patient left the ED. em Signatures: Dispatcher [employer] EDHarish Ocampo RN RN em Martinez, Amelia as Williams, Irene, RN RN iw Page, Corey, PA PA cp
--- NOTE | 2020-09-12 13:10 | RAD REPORT ---
EXAM DESCRIPTION: RAD -Hand Left 3 View - 09/12/2020 12:35 pm CLINICAL HISTORY: Left hand pain FINDINGS: No fracture or dislocation is seen. No bone or joint abnormality noted
--- NOTE | 2020-09-12 13:15 | RAD REPORT ---
EXAM DESCRIPTION: RAD - Foot Left 3 View - 09/12/2020 12:35 pm CLINICAL HISTORY: Left Foot pain FINDINGS: No fracture or dislocation is seen. No bone or joint abnormality noted
[2020-09-12 13:48] VITALS: O2SAT 100
[2020-09-12 13:51] VITALS: BP 159/90
== END 2020-09-12 13:10 | disposition home or self-care (01) ==
LOC: ER 11:40
DX: M79.672 Pain in left foot (principal); M79.642 Pain in left hand; I10 Essential (primary) hypertension; E11.9 Type 2 diabetes mellitus without complications; Z79.4 Long term (current) use of insulin
CPT/HCPCS: 99284

== ENCOUNTER 2020-11-23 00:59 | Emergency (ER) | payer SELFPAY ==
--- OUTSIDE RECORDS SUMMARY | 2020-11-23 01:03 | XMS REPORT | Continuity of Care Document ---
:1980 Author Organization [facility] t Address [address] [place] [address] Care Team Providers Name Role Phone Mike Mixon MD Attending Clinician Payers Payer Name Policy Type Policy Number Effective Date Expiration Date S ource Problems This patient has no known problems. Allergies, Adverse Reactions, Alerts Allergy Allergy Status Severity Reaction(s) Onset Inactive Treating Comm ents Source Name Type Date Date Clinician No Known DA Active U 2019-0 [facility] 06[facility]14 [facility] Medications This patient has no known medications. Procedures This patient has no known procedures. Encounters Start End Encounter Admission Attending Care Care Encounter Source Date/Time Date/Time Type Type Clinicians Facility Department ID 2020-11-20 2020-11-20 Office CORINA Mixon [id number] 09:28:05 10:34:37 Visit [facility] [id number] M[facility] [id number] [facility] AT [id number] ANGELINA Chirinos [facility] Results Test Description Test Time Test Comments Results Result Comments Source B-TYPE NATRIURETIC PEPTIDE 2020-06-15 21:58:00 Test Item Value Reference Range Interpretation Comme nts B-TYPE NATRIURETIC PEPTIDE (test code = BNP) 63.3 PG/ML 0-100 N PROTHROMBIN [id number] 21:51:00 Test Item Value Reference Interpretation Comments [...] heart valves. LAB ANTICOAGULANT QUERY NOTHROMBOPLASTIN TIME [id number] 21:51:00 Test Item Value Reference Range Interpretation Comments THROMBOPLASTIN TIME PARTIAL 31.0 seconds 22.8-34.4 N (test code = PTT) LAB ANTICOAGULANT QUERY NOD-DIMER [id number] 21:51:00 Test Item Value Reference Range Interpretation [...] otherfindin gs. LAB ANTICOAGULANT QUERY NOBASIC METABOLIC [id number] 21:50:00 Test Item Value Reference Range Interpretation [...] code = 8.3 mg/dL 8.5-10.1 L CA) [id number] 21:50:00 Test Item Value Reference Range Interpretation Comments TROPONIN-I (test <0.015 ng/ml 0.00-0.045 N GUIDELINES: 0.08 - 0.09 code = TROPI) Indeterminate0 .10 Risk Stratifica tion Limit: Suggest sequential te sting0.60 - 1.50 AMI cut off: Myocardial Inju ry by WHO criteria CBC W/AUTO [id number] 21:49:00 Test Item Value Reference Range Interpretation [...] 0.00 K/mm3 0.0-0.1 N NRBC#) BASIC METABOLIC [id number] 21:45:00 Test Item Value Reference Range Interpretation [...] code = 8.3 mg/dL 8.5-10.1 L CA) [id number] 21:45:00 Test Item Value Reference Range Interpretation Comments TROPONIN-I (test code = TROPI) ng/ml 0.00-0.045 - XR CHEST 1 [id number] 21:45:00 [facility] Name: WANDA CISSE [address] [place] [address] Road Phys: Saman Brown MD [place], [place] [address] : 1980 Age: 39 Sex: F Acct: [id number] Loc: RENAE PHONE #: [phone] Exam Date: 06/15/2020 Status: REG ER FAX #: [phone] Radiology No: Unit No: [id number] Reason: acc htn, rales, hypoxia EXAMS: CPT CODE: [id number] XR CHEST 1 V 97340 Fluoro Time: DAP (Gy m2): Air Kerma [...] Chacon, RT (R) Transcribed Date/Time: 06/15/2020 (2144) [id number] Orig Print D/T: S: 0 06/15/2020 (2147) PAGE 1 Signed ReportBASIC METABOLIC [id number] 21:42:00 Test Item Value Reference Range Interpretation [...] code = CA) 8.3 mg/dL 8.5-10.1 L [id number] 21:42:00 Test Item Value Reference Range Interpretation Comments TROPONIN-I (test code = TROPI) ng/ml 0.00-0.045 BASIC METABOLIC [id number] 21:41:00 Test Item Value Reference Range Interpretation [...] code = CA) 8.3 mg/dL 8.5-10.1 L [id number] 21:41:00 Test Item Value Reference Range Interpretation Comments TROPONIN-I (test code = TROPI) ng/ml 0.00-0.045 BASIC METABOLIC [id number] 21:40:00 Test Item Value Reference Range Interpretation [...] CALCIUM (test code = CA) mg/dL 8.5-10.1 [id number] 21:40:00 Test Item Value Reference Range Interpretation Comments TROPONIN-I (test code = TROPI) ng/ml 0.00-0.045 PROTHROMBIN [id number] 13:49:00 Test Item Value Reference Interpretation Comments [...] with mechanicalprost hetic heart valves. THROMBOPLASTIN TIME [id number] 13:49:00 Test Item Value Reference Range Interpretation Comments THROMBOPLASTIN TIME PARTIAL 35.2 seconds 22.8-34.4 H (test code = PTT) BASIC METABOLIC [id number] 13:35:00 Test Item Value Reference Range Interpretation [...] = 8.6 mg/dL 8.5-10.1 N CA) LIVER [id number] 13:35:00 Test Item Value Reference Range Interpretation [...] 88 U/L 50-136 N code = ALKP) [id number] 13:35:00 Test Item Value Reference Range Interpretation Comments TROPONIN-I (test <0.015 ng/ml 0.00-0.045 N GUIDELINES: 0.08 - 0.09 code = TROPI) Indeterminate0 .10 Risk Stratifica tion Limit: Suggest sequential te sting0.60 - 1.50 AMI cut off: Myocardial Inju ry by WHO criteria BASIC METABOLIC [id number] 13:33:00 Test Item Value Reference Range Interpretation [...] = 8.6 mg/dL 8.5-10.1 N CA) LIVER [id number] 13:33:00 Test Item Value Reference Range Interpretation [...] 88 U/L 50-136 N code = ALKP) [id number] 13:33:00 Test Item Value Reference Range Interpretation Comments TROPONIN-I (test code = TROPI) ng/ml 0.00-0.045 - XR CHEST 1 [id number] 13:33:00 [facility] Name: WANDA CISSE [address] [place] [address] Phys: Cal Henning Jr, MD [place] [address] : 1980 Age: 39 Sex: F Acct: [id number] Loc: RENAE PHONE #: [phone] Exam Date: 06/14/2020 Status: REG ER FAX #: [phone] Radiology No: Unit No: [id number] Reason: Code sepsis EXAMS: CPT CODE: [id number] XR CHEST 1 V 58058 Fluoro Time: DAP (Gy m2): Air Kerma [...] signed by: JOHN CONN M.D.CC: Technologist: Rox Richard, RT (R) Transcribed Date/Time: 06/14/2020 (1997) [email or web address] Orig Print D/T: S: 06/14/2020 (0526) PAGE 1 Signed ReportBASIC METABOLIC [id number] 13:32:00 Test Item Value Reference Range Interpretation [...] = 8.6 mg/dL 8.5-10.1 N CA) LIVER [id number] 13:32:00 Test Item Value Reference Range Interpretation [...] TOTAL (test U/L 50-136 code = ALKP) [id number] 13:32:00 Test Item Value Reference Range Interpretation Comments TROPONIN-I (test code = TROPI) ng/ml 0.00-0.045 BASIC METABOLIC [id number] 13:30:00 Test Item Value Reference Range Interpretation [...] = 8.6 mg/dL 8.5-10.1 N CA) LIVER [id number] 13:30:00 Test Item Value Reference Range Interpretation [...] TOTAL (test U/L 50-136 code = ALKP) [id number] 13:30:00 Test Item Value Reference Range Interpretation Comments TROPONIN-I (test code = TROPI) ng/ml 0.00-0.045 BASIC METABOLIC [id number] 13:27:00 Test Item Value Reference Range Interpretation [...] = CA) 8.6 mg/dL 8.5-10.1 N LIVER [id number] 13:27:00 Test Item Value Reference Range Interpretation [...] TOTAL (test U/L 50-136 code = ALKP) [id number] 13:27:00 Test Item Value Reference Range Interpretation Comments TROPONIN-I (test code = TROPI) ng/ml 0.00-0.045 BASIC METABOLIC [id number] 13:25:00 Test Item Value Reference Range Interpretation [...] (test code = CA) mg/dL 8.5-10.1 LIVER [id number] 13:25:00 Test Item Value Reference Range Interpretation Comments TOTAL PROTEIN (test code = PROT) g/dl 6.4-8.2 ALBUMIN (test code = ALB) g/dl 3.4-5.0 BILIRUBIN TOTAL (test code = BILT) mg/dl 0.2-1.0 BILIRUBIN DIRECT (test code = BILD) mg/dl 0.0-0.4 SGOT/AST (test code = AST) U/L 15-37 SGPT/ALT (test code = ALT) U/L 12-78 ALKALINE PHOSPHATASE TOTAL (test code U/L 50-136 = ALKP) [id number] 13:25:00 Test Item Value Reference Range Interpretation Comments TROPONIN-I (test code = TROPI) ng/ml 0.00-0.045 CBC W/AUTO [id number] 13:20:00 Test Item Value Reference Range Interpretation [...] = 0.00 K/mm3 0.0-0.1 N NRBC#) LACTIC [id number] 13:15:00 Test Item Value Reference Range Interpretation Comments LACTIC ACID (test code = LACT) 1.5 mmol/l 0.4-2.0 N
--- OUTSIDE RECORDS SUMMARY | 2020-11-23 01:03 | XMS REPORT | Summary of Care ---
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 Stephanie Jiang Radiology Procedures XR FOOT 3+ VW LEFT MD Mike [address] Campbell [address] [place] [address] Radiology Services (Routine) Status Reason Specialty Diagnoses / Referred By Referred To Procedures Contact Contact New Request Diagnostic Diagnoses 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 Stephanie Jiang Radiology Procedures XR HAND 3+ VW LEFT MD [facility] [address] [place] [address] Reason for Visit Radiology Services (Routine) Status Reason Specialty Diagnoses / Referred By Referred To Procedures Contact Contact New Request Diagnostic Diagnoses 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 Stephanie Jiang Radiology Procedures XR HAND 3+ VW LEFT MD Mike [facility] [address] [place] [address] Encounter Details Date Type Department Care Team Description 11/20/2020 Hospital [facility] MD Mike Radiology [address] [facility] [place] [phone] [address] [phone] Allergies No Known Allergiesdocumented as of this encounter (statuses as of 11/21/2020) Medications Medication Sig Dispensed Refills Start Date End Date Status labetalol (NORMODYNE) Take 1 Tab by 90 Tab 3 05/23/2014 Active 100 mg mouth 3 (three) tabletIndications: times daily. Hypertension in , pre-existing, antepartum documented as of this encounter (statuses as of 11/21/2020) Active Problems Problem Noted Date Diabetes mellitus during , antepartum 014 Overview: ICD10 Diagnosis Term Scrap Drop Operator Utility Previous delivery, delivered 05/23/2014 Overview: 01/04/2005: Primary Low transverse delivery by Dr. Jabier Stallings at [facility]. See external records for more detail. ICD10 Diagnosis Term Scrap Drop Operator Utility Rubella immune 05/14/2014 Immune to varicella 05/14/2014 UTI (urinary tract infection) 05/13/2014 Overview: JOAN - High-risk 05/13/2014 Chronic hypertension in 05/13/2014 documented as of this encounter (statuses as of 11/21/2020) Resolved Problems Problem Noted Date Resolved Date Type II or unspecified type diabetes mellitus without 201305/23/2014 mention of complication, not stated as uncontrolled documented as of this encounter (statuses as of 11/21/2020) Immunizations Name Administration Dates Next Due Rubella 06/02/2004 TDAP 02/12/2013 documented as of this encounter Social History Tobacco Use Types Packs/Day Years Used Date Never Smoker Smokeless Tobacco: Never Used Alcohol Use Drinks/Week oz/Week Comments No Sex Assigned at Date Recorded Not on file COVID-19 Exposure Response Date Recorded In the last month, have you been in contact with No / Unsure 11/20/2020 9:24 AM INSURANCE FOLLOW UP SPECIALIST someone who was confirmed or suspected to have Coronavirus / COVID-19? documented as of this encounter Last Filed Vital Signs Not on filedocumented in this encounter Plan of Treatment Date Type Specialty Care Team Description 12/22/2020 Office Visit Orthopedic Surgery Marco Moffett MD [address] [place] [address] [phone] Health Maintenance Due Date Last Done Comments VARICELLA VACCINES (1 of 2 - 1983 2-dose childhood series) EYE EXAM 1992 LDL-C 1992 URINE MICROALBUMIN 1992 Depression Screening 1994 FOOT EXAM 2000 CREATININE (SERUM) 06/12/2005 06/12/2004, 06/11/2004 HgA1C 11/12/2014 05/13/2014, 09/23/2004, 06/11/2004 PAP SMEAR 09/12/2016 09/12/2013, 09/29/2010, 06/05/2004 INFLUENZA VACCINE (#1) 2020 DTaP,Tdap,and Td Vaccines (2 02/12/2023 02/12/2013 - Td) PNEUMOCOCCAL 0-64 YEARS Aged Out No longe r eligible based COMBINED SERIES on patient's age to complete this to [facility] documented as of this encounter Procedures Procedure Name Priority Date/Time Associated Diagnosis Comme nts XR HAND 3+ VW LEFT Routine 11/20/2020 10:03 Localized primary Results for this AM INSURANCE FOLLOW UP SPECIALIST pantrapezial procedure are i n arthritis of left the result s hand section. XR FOOT 3+ VW LEFT Routine 11/20/2020 10:03 Localized primary Results for this AM INSURANCE FOLLOW UP SPECIALIST pantrapezial procedure are i n arthritis of left the result s hand section. documented in this encounter Results XR FOOT 3+ VW LEFT (11/20/2020 10:03 AM INSURANCE FOLLOW UP SPECIALIST) Specimen Impressions Performed At PACS/VR/DOSE No focal abnormality of the left foot. RL: 7000 3: 29 PM Narrative Performed At This result has an attachment that is no t available. Patient name: WANDA YAN PACS/VR/DOSE : 1980 40 years EXAMINATION: XR FOOT 3+ VW LEFT Ordering Physician: STEPHANIE JIANG CLINICAL HISTORY: pain COMPARISON: None TECHNIQUE: Frontal, oblique, and lateral views of the left foot p erformed FINDINGS: No fracture or dislocation is identified. Lisfranc's j oint is aligned. No osseous lesions or joint space narrowing. Soft tissues are intact. Procedure Note [facility], Radiant Results Inft User - 2020 3:30 PM INSURANCE FOLLOW UP SPECIALIST Patient name: WANDA YAN : 1980 40 years EXAMINATION: XR FOOT 3+ VW LEFT Ordering Physician: STEPHANIE HARDY CLINICAL HISTORY: pain COMPARISON: None TECHNIQUE: Frontal, oblique, and lateral views of t he left foot performed FINDINGS: No fracture or dislocation is identified . Lisfranc's joint is aligned. No osseous lesions or joint space narrowing . Soft tissues are intact. IMPRESSION No focal abnormality of the left foot. RL: 7000 Performing Organization Address [facility] Phone Number PACS/VR/DOSE XR HAND 3+ VW LEFT (11/20/2020 10:03 AM INSURANCE FOLLOW UP SPECIALIST) Specimen Impressions Performed At PACS/VR/DOSE No focal abnormality of the left hand. RL: 7000 3: 28 PM Narrative Performed At This result has an attachment that is no t available. Patient name: WANDA YNA PACS/VR/DOSE : 1980 40 years EXAMINATION: XR HAND 3+ VW LEFT Ordering Physician: STEPHANIE JIANG CLINICAL HISTORY: Left hand pain COMPARISON: None TECHNIQUE: Frontal, oblique, and lateral views of left hand perfo rmed FINDINGS: Normal bone mineralization. No fracture or dislocation is identified. No osseous lesions are seen. No joint space narrowing or erosions. Soft tissues are intact. Procedure Note [facility], Radiant Results Inft User - 2020 3:29 PM INSURANCE FOLLOW UP SPECIALIST Patient name: WANDA YAN : 1980 40 years EXAMINATION: XR HAND 3+ VW LEFT Ordering Physician: STEPHANIE HARDY CLINICAL HISTORY: Left hand pain COMPARISON: None TECHNIQUE: Frontal, oblique, and lateral views of l eft hand performed FINDINGS: Normal bone mineralization. No fracture or dislocation is identified. No osseous lesions are seen. No joint space narrowing or erosions. Soft tissues are intact. IMPRESSION No focal abnormality of the left hand. 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
--- OUTSIDE RECORDS SUMMARY | 2020-11-23 01:03 | XMS REPORT | Summary of Care ---
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 Stephanie Jiang Radiology Procedures MR HAND LEFT W CONTRAST MD Mike [address] Campbell [address] [place] [address] [place], [place] [address] Radiology Services (Routine) Status Reason Specialty Diagnoses / Referred By Referred To Procedures Contact Contact New Request Diagnostic Diagnoses 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 Stephanie Jiang Radiology Procedures XR FOOT 3+ VW LEFT MD Mike [address] Campbell [address] [place] [address] Radiology Services (Routine) Status Reason Specialty Diagnoses / Referred By Referred To Procedures Contact Contact New Request Diagnostic Diagnoses 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 Stephanie Jiang Radiology Procedures XR HAND 3+ VW LEFT MD Mike [address] Campbell [address] [place] [address] Reason for Visit Reason Comments New Patient left hand pain (Routine) Status Reason Specialty Diagnoses / Referred By Referred To Procedures Contact Contact Authorized ORT-ORTHOPAEDIC Diagnoses new pt left hand and foot pain SELF PAY - pt informed of amount due Stephanie Jiang Robert SURGERY / Procedures CONSULT/REFERRAL ORTHOPAEDIC SURGERY NEW VISIT (FIRST TIME) MD Mike Mckeon MD Orthopedic [address] [facility] [address] Phelan [address] [place] [address] Phone: Fax: Encounter Details Date Type Department Care Team Description 11/20/2020 Office Visit [facility] Stephanie Jinag Localized [facility] Orthopaedic Surgery- MD Mike pantrapezial [facility] [address] arthritis of left [address] [facility] [address] hand (Primary Dx) [place], [place] [address] [place] [address] [phone] [address] [phone] Allergies No Known Allergiesdocumented as of this encounter (statuses as of 11/20/2020) Medications Medication Sig Dispensed Refills Start Date End Date Status labetalol (NORMODYNE) Take 1 Tab by 90 Tab 3 05/23/2014 Active 100 mg mouth 3 (three) tabletIndications: times daily. Hypertension in , pre-existing, antepartum documented as of this encounter (statuses as of 11/20/2020) Active Problems Problem Noted Date Diabetes mellitus during , antepartum 014 Overview: ICD10 Diagnosis Term Student Career Development Specialist Utility Previous delivery, delivered 05/23/2014 Overview: 01/04/2005: Primary Low transverse delivery by Dr. Jabier Stallings at [facility]. See external records for more detail. ICD10 Diagnosis Term Student Career Development Specialist Utility Rubella immune 05/14/2014 Immune to varicella 05/14/2014 UTI (urinary tract infection) 05/13/2014 Overview: JOAN - High-risk 05/13/2014 Chronic hypertension in 05/13/2014 documented as of this encounter (statuses as of 11/20/2020) Resolved Problems Problem Noted Date Resolved Date Type II or unspecified type diabetes mellitus without 201305/23/2014 mention of complication, not stated as uncontrolled documented as of this encounter (statuses as of 11/20/2020) Immunizations Name Administration Dates Next Due Rubella [...] with No / Unsure 11/20/2020 9:24 AM PLASTIC SURGERY TECHNICIAN someone who was confirmed or suspected to have Coronavirus / COVID-19? documented as of this encounter Last Filed Vital Signs Vital Sign Reading Time Taken Comments Blood Pressure 197/99 11/20/2020 9:43 pt states she j ust AM PLASTIC SURGERY TECHNICIAN took b/p meds Pulse 89 11/20/2020 9:43 AM PLASTIC SURGERY TECHNICIAN Temperature 36.7 C (98 F) 11/20/2020 9:43 AM PLASTIC SURGERY TECHNICIAN Respiratory Rate - - Oxygen Saturation - - Inhaled Oxygen - - Concentration Weight 85.5 kg (188 lb 6.4 11/20/2020 9:43 oz) AM PLASTIC SURGERY TECHNICIAN Height 160 cm (5' 3") 11/20/2020 9:43 AM PLASTIC SURGERY TECHNICIAN Body Mass Index 33.37 11/20/2020 9:43 AM PLASTIC SURGERY TECHNICIAN documented in this encounter Progress Notes Tammy Myers MD - 11/20/2020 9:50 AM CST Ortho clinic HPI: 40 year old female reports left hand mass on the volar aspect for the last several months. She also endorses tingling and sharp sensation in the bottom of her feet, especially the LLE. She has DM and last A1C was not well controlled. Denies fevers and chills. Past Medical History: Diagnosis Date Blood transfusion, without reported diagnosis 02/2013 r/t kindey failure Diabetes mellitus Diabetes mellitus, antepartum(648.03) 05/23/2014 Hypertension Kidney failure 02/2013 Past Surgical History: Procedure Laterality Date SECTION 2004 Physical Exam BP (!) 197/99 | Pulse 89 | Temp 36.7 C (98 F) (Temporal Artery) | Ht 1.6 m (5' 3") | Wt 85.5kg (188 lb 6.4 oz) | BMI 33.37 kg/m Musculoskeletal: EXT: LUE Well circumscribed mass about the volar hand near ring finger No skin change, ecchymosis, erythema Motor grossly intact M/AIN/U/R/PIN SILT M/U/R distributions, sensation diminished over ring finger Palpable radial pulse LLE: No skin changes/obvious deformity. Motor intact TA/GS/EHL/FHL, sensation intact to light touch but diminished, endorses pins and needles feeling palpable pedal pulses Imaging: X-rays - 2+ views of left foot and hand ordered 11/20/2020 interpreted by me demonstrates no acute bony abnormalities Dx- L volar hand mass Bilateral peripheral neuropathy A/p Wanda Yan is a 40 year old female with mass in volar aspect of left hand and concern for peripheral neuropathy. Recommend peripheral neuropathy treatment per PCP. MRI L hand and return after MRI for evaluation of mass. TIC SURGERY TECHNICIAN documented in this encounter Plan of Treatment Date Type Specialty Care Team Description 12/22/2020 Office Visit Orthopedic Surgery Marco Moffett MD [address] [place] [address] Name Type Priority Associated Diagnoses Order S chedule MR HAND LEFT W IMAGING Routine Localized primary Expected : 11/20/2020, CONTRAST pantrapezial arthritis of Ex rea: 11/20/2021 left hand Health Maintenance Due Date Last Done Comments [...] on patient's age to complete this to [facility] documented as of this encounter Results XR FOOT 3+ VW LEFT (11/20/2020 10:03 AM PLASTIC SURGERY TECHNICIAN) Specimen Impressions Performed At PACS/VR/DOSE No focal [...] Results Inft User - 2020 3:30 PM PLASTIC SURGERY TECHNICIAN Patient name: WANDA YAN : 1980 40 [...] left foot. RL: 7000 Performing Organization Address City/State/Zipcode Phone Number PACS/VR/DOSE XR HAND 3+ VW LEFT (11/20/2020 10:03 AM PLASTIC SURGERY TECHNICIAN) Specimen Impressions Performed At PACS/VR/DOSE No focal [...] Results Inft User - 2020 3:29 PM PLASTIC SURGERY TECHNICIAN Patient name: WANDA YAN : 1980 40 [...] left hand. 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
--- OUTSIDE RECORDS SUMMARY | 2020-11-23 01:03 | XMS REPORT | Summary of Care ---
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 Stephanie Jiang Radiology Procedures MR HAND LEFT W CONTRAST MD Mike [address] Campbell [address] [place], [place] [phone] Radiology Services (Routine) Status Reason Specialty Diagnoses / Referred By Referred To Procedures Contact Contact New Request Diagnostic Diagnoses 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 Stephanie Jiang Radiology Procedures XR FOOT 3+ VW LEFT MD Mike [address] Campbell [address] [place] [address] Radiology Services (Routine) Status Reason Specialty Diagnoses / Referred By Referred To Procedures Contact Contact New Request Diagnostic Diagnoses 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 Stephanie Jiang Radiology Procedures XR HAND 3+ VW LEFT MD Mike [address] Campbell [address] [place] [address] Reason for Visit Reason Comments New Patient left hand pain (Routine) Status Reason Specialty Diagnoses / Referred By Referred To Procedures Contact Contact Authorized ORT-ORTHOPAEDIC Diagnoses new pt left hand and foot pain SELF PAY - pt informed of amount due Stephanie Jiang Robert SURGERY / Procedures CONSULT/REFERRAL ORTHOPAEDIC SURGERY NEW VISIT (FIRST TIME) MD Mike Mckeon MD Orthopedic [address] [facility] [address]hel[address] [place] [address] Phone: Fax: Encounter Details Date Type Department Care Team Description 11/20/2020 Office Visit [facility] Stephanie Jiang Localized [facility] Orthopaedic Surgery- MD Mike pantrapezial [facility] [address] arthritis of left [address] [facility] [address] hand (Primary Dx) [place], [place] [address] [place] [address] [phone] [address] [phone] Allergies No Known Allergiesdocumented as of this [...] , antepartum 014 Overview: ICD10 Diagnosis Term Fire Operations Forester Utility Previous delivery, delivered 05/23/2014 Overview: 01/04/2005: Primary Low transverse delivery by Dr. Jabier Stallings at [facility]. See external records for more detail. ICD10 Diagnosis Term Fire Operations Forester Utility Rubella immune 05/14/2014 Immune to varicella [...] with No / Unsure 11/20/2020 9:24 AM SECONDARY SET UP MAN someone who was confirmed or suspected to have Coronavirus / COVID-19? documented as of this encounter Last Filed Vital Signs Vital Sign Reading Time Taken Comments Blood Pressure 197/99 11/20/2020 9:43 pt states she j ust AM SECONDARY SET UP MAN took b/p meds Pulse 89 11/20/2020 9:43 AM SECONDARY SET UP MAN Temperature 36.7 C (98 F) 11/20/2020 9:43 AM SECONDARY SET UP MAN Respiratory Rate - - Oxygen Saturation - - Inhaled Oxygen - - Concentration Weight 85.5 kg (188 lb 6.4 11/20/2020 9:43 oz) AM SECONDARY SET UP MAN Height 160 cm (5' 3") 11/20/2020 9:43 AM SECONDARY SET UP MAN Body Mass Index 33.37 11/20/2020 9:43 AM SECONDARY SET UP MAN documented in this encounter Progress Notes Tammy [...] return after MRI for evaluation of mass. NDARY SET UP MAN documented in this encounter Plan of Treatment Date Type Specialty Care Team Description 12/22/2020 Office Visit Orthopedic Surgery Marco Moffett MD [address] [place] [address] Name Type Priority Associated Diagnoses [...] on patient's age to complete [facility] documented as of this encounter Results XR FOOT 3+ VW LEFT (11/20/2020 10:03 AM SECONDARY SET UP MAN) Specimen Impressions Performed At PACS/VR/DOSE No focal [...] Results Inft User - 2020 3:30 PM SECONDARY SET UP MAN Patient name: WANDA YAN : 1980 40 [...] HAND 3+ VW LEFT (11/20/2020 10:03 AM SECONDARY SET UP MAN) Specimen Impressions Performed At PACS/VR/DOSE No focal [...] Results Inft User - 2020 3:29 PM SECONDARY SET UP MAN Patient name: WANDA YAN : 1980 40 [...]
--- OUTSIDE RECORDS SUMMARY | 2020-11-23 01:04 | XMS REPORT | Summary of Care ---
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 Stephanie Jiang Radiology Procedures MR HAND LEFT W CONTRAST MD Mike [address] Campbell [address] [place], [place] [id number] Radiology Services (Routine) Status Reason Specialty Diagnoses / Referred By Referred To Procedures Contact Contact New Request Diagnostic Diagnoses 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 Stephanie Jiang Radiology Procedures XR FOOT 3+ VW LEFT MD Mike [address] Campbell [address] [place] [id number] Radiology Services (Routine) Status Reason Specialty Diagnoses / Referred By Referred To Procedures Contact Contact New Request Diagnostic Diagnoses 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 Stephanie Jiang Radiology Procedures XR HAND 3+ VW LEFT MD Mike [address] Campbell [address] [place] [address] Reason for Visit Reason Comments New Patient left hand pain (Routine) Status Reason Specialty Diagnoses / Referred By Referred To Procedures Contact Contact Authorized ORT-ORTHOPAEDIC Diagnoses new pt left hand and foot pain SELF PAY - pt informed of amount due Stephanie Jiang Robert SURGERY / Procedures CONSULT/REFERRAL ORTHOPAEDIC SURGERY NEW VISIT (FIRST TIME) MD Mike Mckeon MD Orthopedic [address] [facility] [address] Phelan [address] [place] [phone] Phone: Fax: Encounter Details Date Type Department Care Team Description 11/20/2020 Office Visit [facility] Stephnaie Jiang Localized [facility] Orthopaedic Surgery- MD Mike pantrapezial [facility] [address] arthritis of left [address] [facility] [address] hand (Primary Dx) [place], [place] [id number] [place] [address] [phone] [id number] [phone] Allergies No Known Allergiesdocumented as of this encounter (statuses as of 11/22/2020) Medications Medication Sig Dispensed Refills Start Date End Date Status labetalol (NORMODYNE) Take 1 Tab by 90 Tab 3 05/23/2014 Active 100 mg mouth 3 (three) tabletIndications: times daily. Hypertension in , pre-existing, antepartum documented as of this encounter (statuses as of 11/22/2020) Active Problems Problem Noted Date Diabetes mellitus during , antepartum 014 Overview: ICD10 Diagnosis Term Fraud Analyst Utility Previous delivery, delivered 05/23/2014 Overview: 01/04/2005: Primary Low transverse delivery by Dr. Jabier Stallings at [facility]. See external records for more detail. ICD10 Diagnosis Term Fraud Analyst Utility Rubella immune 05/14/2014 Immune to varicella 05/14/2014 UTI (urinary tract infection) 05/13/2014 Overview: JOAN - High-risk 05/13/2014 Chronic hypertension in 05/13/2014 documented as of this encounter (statuses as of 11/22/2020) Resolved Problems Problem Noted Date Resolved Date Type II or unspecified type diabetes mellitus without 201305/23/2014 mention of complication, not stated as uncontrolled documented as of this encounter (statuses as of 11/22/2020) Immunizations Name Administration Dates Next Due Rubella [...] with No / Unsure 11/20/2020 9:24 AM MEAT MARKET MANAGER someone who was confirmed or suspected to have Coronavirus / COVID-19? documented as of this encounter Last Filed Vital Signs Vital Sign Reading Time Taken Comments Blood Pressure 197/99 11/20/2020 9:43 pt states she j ust AM MEAT MARKET MANAGER took b/p meds Pulse 89 11/20/2020 9:43 AM MEAT MARKET MANAGER Temperature 36.7 C (98 F) 11/20/2020 9:43 AM MEAT MARKET MANAGER Respiratory Rate - - Oxygen Saturation - - Inhaled Oxygen - - Concentration Weight 85.5 kg (188 lb 6.4 11/20/2020 9:43 oz) AM MEAT MARKET MANAGER Height 160 cm (5' 3") 11/20/2020 9:43 AM MEAT MARKET MANAGER Body Mass Index 33.37 11/20/2020 9:43 AM MEAT MARKET MANAGER documented in this encounter Progress Notes Tammy [...] return after MRI for evaluation of mass. I performed a history and physical examination of the patient and discussed the patient's managementwith the resident's. I reviewed the resident's note and agree with the documented findings and planof care. In addition, I supervised any procedures or injections performed at this visit. Stephanie Jiang MD [facility] 11/22/2020 1:25 PM MARKET MANAGER documented in this encounter Plan of Treatment Date Type Specialty Care Team Description 12/22/2020 Office Visit Orthopedic Surgery Marco Moffett MD [address] [place] [id number] Name Type Priority Associated Diagnoses Order S [...] on patient's age to complete this to pic documented as of this encounter Results XR FOOT 3+ VW LEFT (11/20/2020 10:03 AM MEAT MARKET MANAGER) Specimen Impressions Performed At PACS/VR/DOSE No focal [...] Results Inft User - 2020 3:30 PM MEAT MARKET MANAGER Patient name: WANDA YAN : 1980 40 [...] HAND 3+ VW LEFT (11/20/2020 10:03 AM MEAT MARKET MANAGER) Specimen Impressions Performed At PACS/VR/DOSE No focal [...] Results Inft User - 2020 3:29 PM MEAT MARKET MANAGER Patient name: WANDA YAN : 1980 40 [...]
[2020-11-23] MEDS ORDERED: MORPHINE 4 MG/ML SYR ONE (01:57)
[2020-11-23] MEDS ORDERED: ONDANSETRON 4 MG/2 ML VIAL ONE (01:57)
[2020-11-23 02:18] LABS: Absolute Lymphocytes (CBC) 5.1 K/uL (0.7-4.9); Basophils % 0.5 % (0-1.3); Hematocrit 32.8 % (36.0-45.0); Lymphocytes % 47.1 % (15.3-44.8); MPV 9.1 fL (7.6-11.3); RBC Red Blood Cell Count 4.04 M/uL (3.86-4.86)
[2020-11-23 02:22] LABS: Protime INR 0.91
[2020-11-23 02:42] LABS: ALT/SGPT 21 U/L (12-78); AST/SGOT 14 U/L (15-37); Albumin 3.1 g/dL (3.4-5.0); Alkaline Phosphatase 109 U/L (45-117); BUN Blood Urea Nitrogen 25 mg/dL (7-18); Bicarbonate 26 mmol/L (21-32); Bilirubin Direct 0.1 mg/dL (0-0.2); Bilirubin Total 0.6 mg/dL (0.2-1.0); Creatine Phosphokinase 146 U/L (26-192); Glucose Level 217 mg/dL (74-106); Magnesium 1.9 mg/dL (1.8-2.4); NT PRO-BNP 36 pg/mL (<125); Potassium 3.6 mmol/L (3.5-5.1); Protein, Total 7.7 g/dL (6.4-8.2); Sodium Level 140 mmol/L (136-145); Troponin (Emerg Dept Use Only) < 0.02 ng/mL (0.0-0.045)
[2020-11-23 03:20] LABS: Urine Blood TRACE (NEG); Urine Glucose 1+ (NEG); Urine Protein 2+ (NEG); Urine Specific Gravity 1.025 (1.005-1.030); Urine pH 5.5 (5.0-7.0)
[2020-11-23 03:47] LABS: Urine Bacteria LOADED /HPF (<20); Urine Mucus 2+ /HPF (NONE SEEN)
--- NOTE | 2020-11-23 04:59 | ER ---
Nurse's Notes [facility] Name: Aida Yan Age: 40 yrs Sex: Female : 1980 Arrival Date: 11/23/2020 Time: 01:00 Bed 20 Private MD: Diagnosis: Dyspnea;Right Upper Back Pain-Chronic;UTI Presentation: 11/23 01:10 Chief complaint: Patient states: Upper back pain, severe the last 3 days; Denies any lp1 injury; similar pain previously, resolved on its own; Upper back pain radiating to right shoulder blade; States "The pain makes it hard for me to breathe". Coronavirus screen: Client denies travel out of the [place] in the last 14 days. At this time, the client does not indicate any symptoms associated with coronavirus-19. Ebola Screen: No symptoms or risks identified at this time. Risk Assessment: Do you want to hurt yourself or someone else? Patient reports no desire to harm self or others. Note Reports some relief with Advil. Onset of symptoms was November 23, 2020. 01:10 Method Of Arrival: Ambulatory lp1 01:10 Acuity: VINICIO 3 lp1 01:15 Initial Sepsis Screen: Does the patient meet any 2 criteria? No. Patient's initial lp1 sepsis screen is negative. Does the patient have a suspected source of infection? No. Patient's initial sepsis screen is negative. 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 - Social history:: Smoking status: Patient denies any tobacco usage or history of. Screenin:18 Abuse screen: Denies threats or abuse. Denies injuries from another. Nutritional lp1 screening: No deficits noted. Tuberculosis screening: No symptoms or risk factors identified. 02:06 Fall Risk IV access (20 points). Total Thompson Fall Scale indicates No Risk (0-24 pts). rr5 Assessment: 01:40 General: Appears in no apparent distress. uncomfortable, Behavior is calm, cooperative, rr5 appropriate for age. 01:40 Pain: Complains of pain in back Pain does not radiate. Pain currently is 9 out of 10 on rr5 a pain scale. Quality of pain is described as aching, Pain began 2-3 days ago. Is intermittent. Neuro: Level of Consciousness is awake, alert, obeys commands, Oriented to person, place, time, situation. Cardiovascular: Capillary refill < 3 seconds Patient's skin is warm and dry. Respiratory: Airway is patent Respiratory effort is even, unlabored, Respiratory pattern is regular, symmetrical. GI: No signs and/or symptoms were reported involving the gastrointestinal system. : No signs and/or symptoms were reported regarding the genitourinary system. EENT: No signs and/or symptoms were reported regarding the EENT system. Derm: Skin is intact, is healthy with good turgor, Skin is pink, warm \\T\\ dry. Musculoskeletal: Circulation, motion, and sensation intact. Capillary refill < 3 seconds, Reports pain in back. 02:56 Reassessment: Patient appears in no apparent distress at this time. Patient is alert, rr5 oriented x 3, equal unlabored respirations, skin warm/dry/pink. Patient states feeling better. Patient states symptoms have improved. 03:18 Reassessment: Patient appears in no apparent distress at this time. send to CT angio rr5 assisted [address] staff. Vital Signs: 01:15 BP 167 / 86; Pulse 93; Resp 18; Temp 98.6(TE); Pulse Ox 100% on R/A; Weight 85.28 kg lp1 (R); Height 5 ft. 3 in. (160.02 cm); Pain 9/10; 02:04 BP 130 / 73; Pulse 77; Resp 19; Pulse Ox 99% ; rr5 02:55 BP 124 / 74; Pulse 80; Resp 16; Pulse Ox 98% ; Pain 6/10; rr5 03:32 BP 146 / 80; Pulse 94; Resp 16; Pulse Ox 100% ; tt3 01:15 Body Mass Index 33.30 (85.28 kg, 160.02 cm) lp1 ED Course: 01:00 Patient arrived in ED. am2 01:12 Triage completed. lp1 01:12 Arm band placed on. lp1 01:26 Siddhartha Cary MD is Attending Physician. mh7 01:40 Cristo Lawton RN is Primary Nurse. rr5 01:50 Patient has correct armband on for positive identification. Bed in low position. Call rr5 light in reach. Side rails up X2. residential monitor on. Pulse ox on. NIBP on. 01:50 Warm blanket given. rr5 01:55 EKG done, by ED staff, reviewed by Siddhartha Cary MD. rr5 02:00 Inserted saline lock: 20 gauge in right antecubital area, using aseptic technique. rr5 Blood collected. 02:12 XRAY Chest (1 view) In Process Unspecified. EDMS 03:18 Urine collected: clean catch specimen, clear. rr5 03:37 CT Chest For PE Angio In Process Unspecified. EDMS 05:37 IV discontinued, intact, bleeding controlled, No redness/swelling at site. Pressure tt3 dressing applied. Administered Medications: 02:00 Drug: Zofran (Ondansetron) 4 mg Route: IVP; Site: right antecubital; rr5 03:16 Follow up: Response: No adverse reaction rr5 03:16 Follow up: Response: No adverse reaction; Pain is decreased; RASS: Alert and Calm (0) rr5 02:02 Drug: morphine 4 mg {Note: rass 0.} Route: IVP; Site: right antecubital; rr5 03:17 Follow up: Response: No adverse reaction; Pain is decreased; RASS: Alert and Calm (0) rr5 05:30 Drug: Cipro 500 mg Route: PO; ll2 Outcome: 04:59 Discharge ordered by . mh7 05:54 Patient left the ED. ll2 Addendum: 11/26/2020 09:24 Addendum: Culture Results: Positive urine culture. No further action required. Bacteria a a5 sensitive to prescribed antibiotic. Signatures: Dispatcher [employer] EDMS Yessy Groves RN RN aa5 Katelyn Dykes RN RN lp1 Natasha Wright am2 Cristo Lawton, RN RN rr5 Cherie Lima, RN RN ll2 Siddhartha Cary, MD FOOTE mh7 Lokesh Blake tt3 Corrections: (The following items were deleted from the chart) 11/23 05:53 05:20 Cipro 500 mg PO ll2 ll2
--- NOTE | 2020-11-23 05:00 | EDPHYS ---
Physician Documentation [facility] Name: Aida Yan Age: 40 yrs Sex: Female : 1980 Arrival Date: 11/23/2020 Time: 01:00 Bed 20 Private MD: LENNOX Physician Siddhartha Cary HPI: 11/23 02:02 This 40 yrs old Female presents to ER via Ambulatory with complaints of Back mh7 Pain - feels like cant take a breath. 02:02 The patient presents with pain that is acute, with no known mechanism of injury. The mh7 symptoms are located in the right upper back. Onset: The symptoms/episode began/occurred 3 day(s) ago. The pain does not radiate. Associated signs and symptoms: Pertinent positives: SOB with walking short distance, fatigue, Pertinent negatives: abdominal pain, chest pain, constipation, dysuria, fever, headache, hematuria, incontinence, nausea, numbness, tingling, urinary retention, vomiting, weakness. The problem was sustained from unknown cause. Modifying factors: The patient symptoms are alleviated by nothing, the patient symptoms are aggravated by walking, palpation. Severity of symptoms: At their worst the symptoms were moderate, yesterday, in the emergency department the symptoms are unchanged. The patient has experienced similar episodes in the past, several times, started a few months ago. 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 - Social history:: Smoking status: Patient denies any tobacco usage or history of. ROS: 02:02 Constitutional: Negative for fever, chills, and weight loss, Eyes: Negative for injury, mh7 pain, redness, and discharge, ENT: Negative for injury, pain, and discharge, Neck: Negative for injury, pain, and swelling, Cardiovascular: Negative for chest pain, palpitations, and edema, Abdomen/GI: Negative for abdominal pain, nausea, vomiting, diarrhea, and constipation, : Negative for injury, bleeding, discharge, and swelling, MS/Extremity: Negative for injury and deformity, Skin: Negative for injury, rash, and discoloration, Neuro: Negative for headache, weakness, numbness, tingling, and seizure, Psych: Negative for depression, anxiety, suicide ideation, homicidal ideation, and hallucinations, Allergy/Immunology: Negative for hives, rash, and allergies, Endocrine: Negative for neck swelling, polydipsia, polyuria, polyphagia, and marked weight changes, Hematologic/Lymphatic: Negative for swollen nodes, abnormal bleeding, and unusual bruising. Exam: 02:02 Head/Face: Normocephalic, atraumatic. Eyes: Pupils equal round and reactive to light, mh7 extra-ocular motions intact. Lids and lashes normal. Conjunctiva and sclera are non-icteric and not injected. Cornea within normal limits. Periorbital areas with no swelling, redness, or edema. Neck: Trachea midline, no thyromegaly or masses palpated, and no cervical lymphadenopathy. Supple, full range of motion without nuchal rigidity, or vertebral point tenderness. No Meningismus. Chest/axilla: Normal chest wall appearance and motion. Nontender with no deformity. No lesions are appreciated. Cardiovascular: Regular rate and rhythm with a normal S1 and S2. No gallops, murmurs, or rubs. Normal PMI, no JVD. No pulse deficits. Respiratory: Lungs have equal breath sounds bilaterally, clear to auscultation and percussion. No rales, rhonchi or wheezes noted. No increased work of breathing, no retractions or nasal flaring. Abdomen/GI: Soft, non-tender, with normal bowel sounds. No distension or tympany. No guarding or rebound. No evidence of tenderness throughout. 02:02 Skin: Warm, dry with normal turgor. Normal color with no rashes, no lesions, and no evidence of cellulitis. MS/ Extremity: Pulses equal, no cyanosis. Neurovascular intact. Full, normal range of motion. Neuro: Awake and alert, GCS 15, oriented to person, place, time, and situation. Cranial nerves II-XII grossly intact. Motor strength 5/5 in all extremities. Sensory grossly intact. Cerebellar exam normal. Normal gait. Psych: Awake, alert, with orientation to person, place and time. Behavior, mood, and affect are within normal limits. 02:02 Constitutional: The patient appears in no acute distress, alert, awake, uncomfortable. 02:02 Back: pain, that is moderate, of the right subscapular area, ROM is normal, normal spinal alignment noted, CVA tenderness, is absent, muscle spasm, is not present, Straight leg raises: of both lower extremities does not illicit pain. Vital Signs: 01:15 BP 167 / 86; Pulse 93; Resp 18; Temp 98.6(TE); Pulse Ox 100% on R/A; Weight 85.28 kg lp1 (R); Height 5 ft. 3 in. (160.02 cm); Pain 9/10; 02:04 BP 130 / 73; Pulse 77; Resp 19; Pulse Ox 99% ; rr5 02:55 BP 124 / 74; Pulse 80; Resp 16; Pulse Ox 98% ; Pain 6/10; rr5 03:32 BP 146 / 80; Pulse 94; Resp 16; Pulse Ox 100% ; tt3 01:15 Body Mass Index 33.30 (85.28 kg, 160.02 cm) lp1 MDM: 04:55 Differential diagnosis: chronic back pain, Fatigue UTI. Data interpreted: Pulse mh7 oximetry: on room air is 100 %. Interpretation: normal. 04:57 Data reviewed: vital signs, nurses notes, old medical records, lab test result(s), [facility] cardiac enzymes, CBC, electrolytes, urinalysis, UPT: EKG, radiologic studies, CT scan. Counseling: I had a detailed discussion with the patient and/or guardian regarding: the historical points, exam findings, and any diagnostic results supporting the discharge/admit diagnosis, lab results, radiology results, the need for outpatient follow up, to return to the emergency department if symptoms worsen or persist or if there are any questions or concerns that arise at home. Response to treatment: the patient's symptoms have markedly improved after treatment. 04:59 Patient medically screened. [facility] 11/23 01:38 Order name: Basic Metabolic Panel [facility] 11/23 01:38 Order name: CBC with Diff; Complete Time: 02:59 [facility] 11/23 01:38 Order name: LFT's [facility] 11/23 01:38 Order name: Magnesium [facility] 11/23 01:38 Order name: NT PRO-BNP [facility] 11/23 01:38 Order name: PT-INR; Complete Time: 02:59 11/23 01:38 Order name: Troponin (emerg Dept Use Only); Complete Time: 02:59 [facility] 11/23 01:38 Order name: CPK; Complete Time: 02:59 [facility] 11/23 01:38 Order name: Basic Metabolic Panel; Complete Time: 02:59 EDMS 11/23 01:38 Order name: Liver (Hepatic) Function; Complete Time: 02:59 EDMS 11/23 01:38 Order name: Magnesium; Complete Time: 02:59 EDMS 11/23 01:38 Order name: NT PRO-BNP; Complete Time: 02:59 EDMS 11/23 03:00 Order name: D-Dimer; Complete Time: 03:34 [facility] 11/23 03:10 Order name: Urine Microscopic Only; Complete Time: 04:56 rv 11/23 01:38 Order name: XRAY Chest (1 view) [facility] 11/23 01:38 Order name: EKG; Complete Time: 01:39 [facility] 11/23 01:38 Order name: Cardiac monitoring; Complete Time: 02:03 [facility] 11/23 01:38 Order name: EKG - Nurse/Tech; Complete Time: 02:03 [facility] 11/23 01:38 Order name: IV Saline Lock; Complete Time: 02:03 [facility] 11/23 01:38 Order name: Labs collected and sent; Complete Time: 02:03 [facility] 11/23 01:38 Order name: O2 Per Protocol; Complete Time: 02:03 [facility] 11/23 01:38 Order name: O2 Sat Monitoring; Complete Time: 02:03 [facility] 11/23 01:38 Order name: Urine Dipstick-Ancillary (obtain specimen); Complete Time: 03:17 [facility] 11/23 03:02 Order name: CT Chest For PE Angio [facility] 11/23 03:15 Order name: Urine Dipstick--Ancillary (enter results); Complete Time: 03:34 sp 11/23 03:15 Order name: Test Urine - POC; Complete Time: 03:34 sp 11/23 03:49 Order name: Urine Culture [facility] 11/23 01:38 Order name: Urine Test (obtain specimen); Complete Time: 03:17 7 Administered Medications: 02:00 Drug: Zofran (Ondansetron) 4 mg Route: IVP; Site: right antecubital; rr5 03:16 Follow up: Response: No adverse reaction rr5 03:16 Follow up: Response: No adverse reaction; Pain is decreased; RASS: Alert and Calm (0) rr5 02:02 Drug: morphine 4 mg {Note: rass 0.} Route: IVP; Site: right antecubital; rr5 03:17 Follow up: Response: No adverse reaction; Pain is decreased; RASS: Alert and Calm (0) rr5 05:30 Drug: Cipro 500 mg Route: PO; ll2 Disposition: 11/23/20 04:59 Discharged to Home. Impression: Dyspnea, Right Upper Back Pain-Chronic, UTI. - Condition is Stable. - Discharge Instructions: Shortness of Breath, [id number], Urinary Tract Infection, Adult, [id number], Back Pain, Adult, [id number]. - Prescriptions for Ibuprofen 800 mg Oral Tablet - take 1 tablet by ORAL route every 8 hours As needed take with food; 15 tablet. Cipro 500 mg Oral Tablet - take 1 tablet by ORAL route every 12 hours for 7 days; 14 tablet. - Medication Reconciliation Form, Thank You Letter, Antibiotic Education, Prescription Opioid Use form. - Follow up: Private Physician; When: 1 - 2 days; Reason: Worsening of condition, Recheck today's complaints, Continuance of care, Re-evaluation by your physician. - Problem is chronic. - Symptoms have improved. Signatures: Dispatcher [employer] [facility] Katelyn Dykes RN RN lp1 Cristo Lawton RN RN rr5 Cherie Liam RN RN ll2 Siddhartha Cary MD MD 7 Corrections: (The following items were deleted from the chart) 05:54 04:59 11/23/2020 04:59 Discharged to Home. Impression: Dyspnea; Right Upper Back ll2 Pain-Chronic; UTI. Condition is Stable. Forms are Medication Reconciliation Form, Thank You Letter, Antibiotic Education, Prescription Opioid Use. Follow up: Private Physician; When: 1 - 2 days; Reason: Worsening of condition, Recheck today's complaints, Continuance of care, Re-evaluation by your physician. Problem is chronic. Symptoms have improved. mh7
[2020-11-23] MEDS ORDERED: CIPROFLOXACIN HCL 500 MG TAB ONE (05:42)
[2020-11-23 05:59] VITALS: TEMP 98.6
[2020-11-23 06:02] VITALS: BP 146/80; O2SAT 100
--- NOTE | 2020-11-23 07:24 | EKG ---
Test Date: 2020-11-23 Test Time: 01:49:25 [employer]: RR MEASUREMENT RESULTS: Intervals: Rate: 88 NE: 152 QRSD: 88 QT: 354 QTc: 428 Glen: P: 38 NE: 152 QRS: 59 T: -11 INTERPRETIVE STATEMENTS: Normal sinus rhythm T wave abnormality, consider inferior ischemia Abnormal ECG Compared to ECG 11/28/2018 23:39:27 Possible ischemia now present T-wave abnormality still present Electronically Signed On 11-23-20 07:23:52 [employer] SYSTEMS ENGINEER by Deon Cain
--- NOTE | 2020-11-23 12:16 | RAD REPORT ---
EXAM DESCRIPTION: RAD - Chest Single View - 11/23/2020 2:12 am CLINICAL HISTORY: SOB Chest pain. COMPARISON: Chest Single View dated 09/23/2017; CHEST PA AND LAT 2 VIEW dated 02/16/2013; CHEST PA AND LAT 2 VIEW dated 06/21/2012 FINDINGS: Portable technique limits examination quality. The lungs are grossly clear. The heart is normal in size. No displaced fractures. IMPRESSION: No acute intrathoracic process suspected.
--- NOTE | 2020-11-23 18:35 | RAD REPORT ---
EXAM DESCRIPTION: Chest For Pe Angio CLINICAL HISTORY: SOB COMPARISON: None Available. TECHNIQUE: CTA of the chest obtained following the uncomplicated intrave nous administration of iodinated contrast. 3-D/MIP reformatted images of the chest available for eval uation. FINDINGS: Chest: Pulmonary arteries: Contrast bolus is adequate.No filling defects identified in the pulmonary arterie s to suggest pulmonary embolus. Thyroid: No abnormalities of the visualized thyroid. Great Vessels: Great vessels have normal anatomic configuration. Thoracic Aorta: No abnormalities of the thoracic aorta identified. Heart: No cardiomegaly, significant pericardial effusion, or coronary artery atherosclerosis Lymph Nodes: No enlarged mediastinal lymph nodes identified. Esophagus: No abnormalities of the esophagus identified. Other: No additional findings. Lungs: Respiratory motion artifact. Minimal bibasilar opacities likely representing dependent atelect asis. No confluent airspace consolidation. Pleura: No pleural effusion or pneumothorax. Trachea/Airways: No abnormalities of the visualized trachea or airways. Bones: No destructive osseous lesions. Upper Abdomen: Limited images of the upper abdomen demonstrate no definite abnormalities of visualize d portions of the liver or spleen. IMPRESSION: 1. No acute pulmonary process. This exam was performed according to our departmental dose-optimization program, which includes autom ated exposure control, adjustment of the mA and/or kV according to patient size and/or use of iterati ve reconstruction technique. 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 The interpreting radiologist is fully responsible for the content of the report.
== END 2020-11-23 05:54 | disposition home or self-care (01) ==
LOC: ER 00:59
DX: N39.0 Urinary tract infection, site not specified (principal); R06.00 Dyspnea, unspecified; I10 Essential (primary) hypertension; E11.9 Type 2 diabetes mellitus without complications; Z79.4 Long term (current) use of insulin
CPT/HCPCS: 36415; 71045; 71275; 80048; 80076; 81003; 81015; 81025; 82550; 83735; 83880; 84484; 85025; 85379; 85610; 87077; 87086; 87088; 87186; 93005; 96374; 96375; 99284; J2405; Q9967

== ENCOUNTER 2021-01-21 16:32 | Emergency (ER) | payer SELFPAY ==
--- OUTSIDE RECORDS SUMMARY | 2021-01-21 16:36 | XMS REPORT | Continuity of Care Document ---
:1980 Author Organization [facility] t Address [address] [place] [address] Care Team Providers Name Role Phone Oral FOOTE, Mike Attending Clinician Payers Payer Name Policy Type [...] Department ID 2020-11-20 2020-11-20 Office CORINA Mixon [id number] 09:28:05 10:34:37 Visit [facility] [id number] Mike COTTER [id number] [place] AT [phone] ANGELINA Chirinos [facility] Results Test Description Test Time Test Comments Results Result Comments Source B-TYPE NATRIURETIC PEPTIDE 2020-06-15 21:58:00 Test Item Value Reference Range Interpretation Comme nts B-TYPE NATRIURETIC PEPTIDE (test code = BNP) 63.3 PG/ML 0-100 N PROTHROMBIN [id number] 21:51:00 Test Item Value Reference Interpretation Comments [...] heart valves. LAB ANTICOAGULANT QUERY NOTHROMBOPLASTIN TIME [id number] 21:51:00 Test Item Value Reference Range Interpretation Comments THROMBOPLASTIN TIME PARTIAL 31.0 seconds 22.8-34.4 N (test code = PTT) LAB ANTICOAGULANT QUERY NOD-DIMER [id number] 21:51:00 Test Item Value Reference Range Interpretation Comments D-DIMER QUANT 0.41 mg/L FEU <0.59 "D-DIMER CUT OFF OF 0.50 (test code = mg/L (FEU) IS U SEFUL TO DDIMER) EXCLUDE DXOF DVT/PEExpected value(RI) is less than 0. 59mg/L (FEU) for quynh lhealthy subjects."Lynda e note: Results of D-di jennifer assays should a lways beinterpreted i n conjunction wit h the patient's medicalhistory, clinical presentation/pr obability and otherfindin gs. LAB ANTICOAGULANT QUERY NOBASIC METABOLIC [id number] 21:50:00 Test Item Value Reference Range Interpretation [...] IS -CHI N, MULTIPLY REPORT ED RESULT BY1.. CREATININE (test code 0.90 mg/dL 0.51-0.95 N = CREAT) CALCIUM (test code = 8.3 mg/dL 8.5-10.1 L CA) [id number] 21:50:00 Test Item Value Reference Range Interpretation Comments TROPONIN-I (test <0.015 ng/ml 0.00-0.045 N GUIDELINES: 0.08 - 0.09 code = TROPI) Indeterminate0 .10 Risk Stratifica tion Limit: Suggest sequential te sting0.60 - 1.50 AMI cut off: Myocardial Inju ry by WHO criteria CBC W/AUTO [id number] 21:49:00 Test Item Value Reference Range Interpretation [...] 0.00 K/mm3 0.0-0.1 N NRBC#) BASIC METABOLIC [id number] 21:45:00 Test Item Value Reference Range Interpretation [...] IS -CHI N, MULTIPLY REPORT ED RESULT BY12.04. CREATININE (test code 0.90 mg/dL 0.51-0.95 N = CREAT) CALCIUM (test code = 8.3 mg/dL 8.5-10.1 L CA) [id number] 21:45:00 Test Item Value Reference Range Interpretation Comments TROPONIN-I (test code = TROPI) ng/ml 0.00-0.045 - XR CHEST 1 [id number] 21:45:00 [facility] Name: WANDA CISSE [address] Phys: Saman Brown MD [place], [place] [address] : 1980 Age: 39 Sex: F Acct: [id number] Loc: RENAE PHONE #: [phone] Exam Date: 06/15/2020 Status: REG ER FAX #: [phone] Radiology No: Unit No: [id number] Reason: acc htn, rales, hypoxia EXAMS: CPT CODE: [id number] XR CHEST 1 V 87670 Fluoro Time: DAP (Gy m2): Air Kerma [...] Chacon, RT (R) Transcribed Date/Time: 06/15/2020 (2144) [email or web address] Orig Print D/T: S: 0 06/15/2020 (2147) PAGE 1 Signed ReportBASIC METABOLIC [id number] 21:42:00 Test Item Value Reference Range Interpretation [...] code = CA) 8.3 mg/dL 8.5-10.1 L [id number] 21:42:00 Test Item Value Reference Range Interpretation Comments TROPONIN-I (test code = TROPI) ng/ml 0.00-0.045 BASIC METABOLIC [id number] 21:41:00 Test Item Value Reference Range Interpretation [...] code = CA) 8.3 mg/dL 8.5-10.1 L [id number] 21:41:00 Test Item Value Reference Range Interpretation Comments TROPONIN-I (test code = TROPI) ng/ml 0.00-0.045 BASIC METABOLIC [id number] 21:40:00 Test Item Value Reference Range Interpretation [...] CALCIUM (test code = CA) mg/dL 8.5-10.1 [id number] 21:40:00 Test Item Value Reference Range Interpretation Comments TROPONIN-I (test code = TROPI) ng/ml 0.00-0.045 PROTHROMBIN [id number] 13:49:00 Test Item Value Reference Interpretation Comments Range PROTHROMBIN TIME 10.5 SECONDS 8.7-12.1 N THERAPEUTIC LEVEL: 1.5 TO PATIENT (test code 1.9 TIMES NORMAL RANGE = PTP) INTERNATIONAL 1.0 Recommended Th erapeutic NORMAL RATIO (test PT Ratios For Oral code = INR) AnticoagulantTh erapy. CONDITION INT'L N ORMALIZED PT RATIO------- --- Prophylaxis of venous thrombosis 2.0 - 3.0in high ri medical or surgicalpati ents, treatment of venousthrombosi s, prevention of e mbolism. Prevention of r ecurrent embolism, 2.5 - 3.5or treatment of patients with mechanicalprost hetic heart valves. THROMBOPLASTIN TIME [id number] 13:49:00 Test Item Value Reference Range Interpretation Comments THROMBOPLASTIN TIME PARTIAL 35.2 seconds 22.8-34.4 H (test code = PTT) BASIC METABOLIC [id number] 13:35:00 Test Item Value Reference Range Interpretation [...] = 8.6 mg/dL 8.5-10.1 N CA) LIVER [id number] 13:35:00 Test Item Value Reference Range Interpretation [...] 88 U/L 50-136 N code = ALKP) [id number] 13:35:00 Test Item Value Reference Range Interpretation Comments TROPONIN-I (test <0.015 ng/ml 0.00-0.045 N GUIDELINES: 0.08 - 0.09 code = TROPI) Indeterminate0 .10 Risk Stratifica tion Limit: Suggest sequential te sting0.60 - 1.50 AMI cut off: Myocardial Inju ry by WHO criteria BASIC METABOLIC [id number] 13:33:00 Test Item Value Reference Range Interpretation [...] = 8.6 mg/dL 8.5-10.1 N CA) LIVER [id number] 13:33:00 Test Item Value Reference Range Interpretation [...] 88 U/L 50-136 N code = ALKP) [id number] 13:33:00 Test Item Value Reference Range Interpretation Comments TROPONIN-I (test code = TROPI) ng/ml 0.00-0.045 - XR CHEST 1 [id number] 13:33:00 [facility] Name: WANDA CISSE [address] [place] [address] Phys: Cal Henning Jr, MD [place], [place] [address] : 1980 Age: 39 Sex: F Acct: [id number] Loc: RENAE PHONE #: [phone] Exam Date: 06/14/2020 Status: REG ER FAX #: [phone] Radiology No: Unit No: [id number] Reason: Code sepsis EXAMS: CPT CODE: [id number] XR CHEST 1 V 59211 Fluoro Time: DAP (Gy m2): Air Kerma [...] Rox Ramos, RT (R) Transcribed Date/Time: 06/14/2020 (3271) [email or web address] Orig Print D/T: S: 06/14/2020 (3924) PAGE 1 Signed ReportBASIC METABOLIC [id number] 13:32:00 Test Item Value Reference Range Interpretation [...] = 8.6 mg/dL 8.5-10.1 N CA) LIVER [id number] 13:32:00 Test Item Value Reference Range Interpretation [...] TOTAL (test U/L 50-136 code = ALKP) [id number] 13:32:00 Test Item Value Reference Range Interpretation Comments TROPONIN-I (test code = TROPI) ng/ml 0.00-0.045 BASIC METABOLIC [id number] 13:30:00 Test Item Value Reference Range Interpretation [...] = 8.6 mg/dL 8.5-10.1 N CA) LIVER [id number] 13:30:00 Test Item Value Reference Range Interpretation [...] TOTAL (test U/L 50-136 code = ALKP) [id number] 13:30:00 Test Item Value Reference Range Interpretation Comments TROPONIN-I (test code = TROPI) ng/ml 0.00-0.045 BASIC METABOLIC [id number] 13:27:00 Test Item Value Reference Range Interpretation [...] = CA) 8.6 mg/dL 8.5-10.1 N LIVER [id number] 13:27:00 Test Item Value Reference Range Interpretation [...] TOTAL (test U/L 50-136 code = ALKP) [id number] 13:27:00 Test Item Value Reference Range Interpretation Comments TROPONIN-I (test code = TROPI) ng/ml 0.00-0.045 BASIC METABOLIC [id number] 13:25:00 Test Item Value Reference Range Interpretation [...] (test code = CA) mg/dL 8.5-10.1 LIVER [id number] 13:25:00 Test Item Value Reference Range Interpretation Comments TOTAL PROTEIN (test code = PROT) g/dl 6.4-8.2 ALBUMIN (test code = ALB) g/dl 3.4-5.0 BILIRUBIN TOTAL (test code = BILT) mg/dl 0.2-1.0 BILIRUBIN DIRECT (test code = BILD) mg/dl 0.0-0.4 SGOT/AST (test code = AST) U/L 15-37 SGPT/ALT (test code = ALT) U/L 12-78 ALKALINE PHOSPHATASE TOTAL (test code U/L 50-136 = ALKP) [id number] 13:25:00 Test Item Value Reference Range Interpretation Comments TROPONIN-I (test code = TROPI) ng/ml 0.00-0.045 CBC W/AUTO [id number] 13:20:00 Test Item Value Reference Range Interpretation [...] = 0.00 K/mm3 0.0-0.1 N NRBC#) LACTIC [id number] 13:15:00 Test Item Value Reference Range Interpretation Comments LACTIC ACID (test code = LACT) 1.5 mmol/l 0.4-2.0 N
--- NOTE | 2021-01-21 18:45 | RAD REPORT ---
EXAM DESCRIPTION: CT - Head Brain Wo Cont - 01/21/2021 6:36 pm CLINICAL HISTORY: Headache COMPARISON: 2012 TECHNIQUE: Computed axial tomography of the head was obtained. IV contrast was not requested. All CT scans are performed using dose optimization technique as appropriate and may include automated exposure control or mA/KV adjustment according to patient size. FINDINGS: An intracranial bleed is not seen . The ventricles are normal in caliber. No extra-axial fluid collection is noted. A 16 millimeter bleed left basal ganglia perhaps secondary to hypertension. Fluid within the sinuses/ mastoids is not seen. IMPRESSION: 16 millimeter bleed left basal ganglia. Referring physician notified 6:39 p.m. January 21, 2021
[2021-01-21] MEDS ORDERED: Nicardipine/NS 25 MG/250 ML KIT IV ONE ×2 (19:16→20:55)
[2021-01-21 19:18] LABS: Absolute Lymphocytes (CBC) 4.2 K/uL (0.7-4.9); Basophils % 0.7 % (0-1.3); Hematocrit 33.7 % (36.0-45.0); Lymphocytes % 48.1 % (15.3-44.8); MPV 9.2 fL (7.6-11.3); RBC Red Blood Cell Count 4.03 M/uL (3.86-4.86)
[2021-01-21 19:20] LABS: Protime INR 0.89
[2021-01-21 19:35] LABS: ALT/SGPT 26 U/L (12-78); AST/SGOT 16 U/L (15-37); Alkaline Phosphatase 110 U/L (45-117); BUN Blood Urea Nitrogen 13 mg/dL (7-18); Bicarbonate 27 mmol/L (21-32); Bilirubin Direct < 0.1 mg/dL (0-0.2); Bilirubin Total 0.4 mg/dL (0.2-1.0); Glucose Level 188 mg/dL (74-106); Magnesium 1.8 mg/dL (1.8-2.4); NT PRO-BNP 61 pg/mL (<125); Potassium 3.6 mmol/L (3.5-5.1); Protein, Total 7.7 g/dL (6.4-8.2); Sodium Level 143 mmol/L (136-145); Troponin (Emerg Dept Use Only) < 0.02 ng/mL (0.0-0.045)
--- NOTE | 2021-01-21 19:48 | ER ---
Nurse's Notes [facility] Name: Aida Yan Age: 40 yrs Sex: Female : 1980 Arrival Date: 01/21/2021 Time: 16:35 Bed 26 Private MD: Diagnosis: Left Basal Ganglia Hemorrhage ;Weakness-Right Upper Extremity and Right Lower Extremity;Paresthesia of skin-Left Side of Face Presentation: 01/21 16:39 Chief complaint: Patient states: Tuesday night about midnight i went to the restroom and tw2 i started feeling like i didn't have any balance and like i was leaning to the right, then i thought it was because i got up too fast, so i went back to bed, then i got up at 7 am and then i noticed my legs were really heavy feeling and it was more the right than the left, and i noticed my right arm was heavy too and i couldn't hold anything with it, i do have a headache and i feel dizzy like, since yesterday i noticed my pressures were up. Coronavirus screen: At this time, the client does not indicate any symptoms associated with coronavirus-19. Ebola Screen: Patient denies travel to an Ebola-affected area in the 21 days before illness onset. Initial Sepsis Screen: Does the patient meet any 2 criteria? No. Patient's initial sepsis screen is negative. Does the patient have a suspected source of infection? No. Patient's initial sepsis screen is negative. Risk Assessment: Do you want to hurt yourself or someone else? Patient reports no desire to harm self or others. Onset of symptoms was January 21, 2021. 16:39 Method Of Arrival: Wheelchair tw2 16:39 Acuity: VINICIO 3 tw2 16:[address] provider [address] Valencia of pts triage information, hx, and time of onset. no tw2 further orders at this time. 18:45 Acuity: VINICIO 2 aa5 Triage Assessment: 16:46 General: Appears in no apparent distress. obese, well groomed, Behavior is calm, tw2 cooperative, appropriate for age. Pain: Complains of pain in headache. Neuro: Manager Occupational are weak on right Facial droop on left, spoke with Dr. Valencia regarding pts condition, no code stroke at this time d/t time . Reports headache numbness in LEFT side of face, RIGHT arm \\T\\ RIGHT LEG. JAVA SDET: 16:46 LMP 01/12/2021 tw2 Stroke Activation: Symptom onset > 6 hours Physician: Stroke Attending; Name: ; Notified At: ; Arrived At: Physician: Chief Stroke Resident; Name: ; Notified At: ; Arrived At: Physician: Stroke Resident; Name: ; Notified At: ; Arrived At: Physician: ED Attending; Name: ; Notified At: ; Arrived At: Physician: ED Resident; Name: ; Notified At: ; Arrived At: Historical: - Allergies: 16:46 No Known Allergies; tw2 - Home Meds: 16:46 Novolin N 100 unit/mL Sub-Q susp 10 unit nightly [Active]; losartan 75 mg Oral tab 1 tw2 tab once daily [Active]; amlodipine 10 mg tab 1 tab once daily [Active]; glipizide-metformin 5-500 mg Oral tab 1 tab 2 times per day [Active]; - PMHx: 16:46 Hypertension; Diabetes - NIDDM; tw2 - PSHx: 16:46 ; tw2 - Immunization history:: Adult Immunizations. - Social history:: Smoking status: Patient denies any tobacco usage or history of. Screenin:42 Abuse screen: Denies threats or abuse. Nutritional screening: No deficits noted. aa5 Tuberculosis screening: No symptoms or risk factors identified. Fall Risk IV access (20 points). Total Thompson Fall Scale indicates No Risk (0-24 pts). Assessment: 18:45 Reassessment: Pt back from CT via wheelchair, pt placed in ER Room 26. aa5 18:48 T-PA (Activase) Screening: Contraindications: Intracranial hemorrhage and its risk aa5 factor and suspicion of subarachnoid bleed: Yes. Patient reports onset of signs and symptoms of stroke greater than 6 hours ago: Yes. 18:48 General: Appears uncomfortable, Behavior is calm, cooperative. Pain: Complains of pain aa5 in head Pain currently is 8 out of 10 on a pain scale. Quality of pain is described as aching, pressure. Neuro: Level of Consciousness is awake, alert, obeys commands, Oriented to person, place, time, situation, Manager Occupational are weak on right Weakness in right arm(s) leg(s) Speech is normal, Facial symmetry appears normal, Reports numbness in left side of face, right arm, and right leg. Cardiovascular: Heart tones S1 S2 present Rhythm is regular. Respiratory: Airway is patent Respiratory effort is even, unlabored, Respiratory pattern is regular, symmetrical. GI: No signs and/or symptoms were reported involving the gastrointestinal system. : No signs and/or symptoms were reported regarding the genitourinary system. EENT: No signs and/or symptoms were reported regarding the EENT system. Derm: Skin is pink, warm \\T\\ dry. Musculoskeletal: Range of motion: intact in all extremities. 19:20 Reassessment: Patient is alert, oriented x 3, equal unlabored respirations, skin aa5 warm/dry/pink. 19:30 Reassessment: Patient appears in no apparent distress at this time. Patient and/or em family updated on plan of care and expected duration. Pain level reassessed. Patient is alert, oriented x 3, equal unlabored respirations, skin warm/dry/pink. 20:10 Reassessment: reports headache, provider notified, received VO for 4 mg zofran and 4 mg em morphine IVP x 1. 20:30 Reassessment: reports MUÑOZ has improved, rates pain 6/10. em 20:49 Reassessment: report given to AQUILINO Huertas with life flight. em Vital Signs: 16:39 BP 215 / 98; Pulse 94; Resp 17; Temp 98.3(O); Pulse Ox 100% on R/A; Weight 85.73 kg tw2 (R); Height 5 ft. 2 in. (157.48 cm); Pain 8/10; 16:50 BP 200 / 82; tw2 18:47 BP 187 / 97; Pulse 84; Resp 20 S; Pulse Ox 100% on R/A; aa5 18:55 BP 174 / 84; Pulse 84; Resp 18; Pulse Ox 100% on R/A; aa5 19:04 BP 193 / 95; Pulse 86; Resp 18 S; Pulse Ox 100% on R/A; aa5 19:06 BP 223 / 98; Pulse 91; Resp 18; Pulse Ox 100% on R/A; aa5 19:10 BP 185 / 83; Pulse 89; Resp 16 S; Pulse Ox 100% on R/A; aa5 19:20 BP 181 / 82; Pulse 107; Resp 18 S; Pulse Ox 100% on R/A; aa5 19:25 BP 169 / 81; Pulse 101; Resp 16 S; Pulse Ox 100% on R/A; aa5 19:30 BP 131 / 82; Pulse 97; Resp 16 S; Pulse Ox 100% on R/A; aa5 19:33 BP 160 / 75; Pulse 94; Resp 18 S; Pulse Ox 100% on R/A; aa5 19:38 BP 152 / 78; Pulse 97; Resp 18 S; Pulse Ox 100% on R/A; aa5 19:45 BP 150 / 75; Pulse 97; Resp 16 S; Pulse Ox 100% on R/A; aa5 20:13 BP 145 / 71; Pulse 95; Resp 20; Pulse Ox 100% on R/A; Pain 9/10; em 20:24 BP 129 / 68; Pulse 99; Resp 18; Pulse Ox 98% on R/A; em 16:39 Body Mass Index 34.57 (85.73 kg, 157.48 cm) tw2 NIH Stroke Scale Scores: 18:48 NIHSS Score: 3 aa5 19:07 NIHSS Score: 2 cp ED Course: 16:35 Patient arrived in ED. am2 16:42 Triage completed. tw2 16:46 Arm band placed on. tw2 18:41 Francisco Edwards PA is PHCP. cp 18:41 Bill Valencia MD is Attending Physician. cp 18:47 Yessy Groves, AQUILINO is Primary Nurse. aa5 19:02 Initiated transfer with Lindsey at [facility]. Stated she would do a bed check and call tt3 back. 19:05 EKG done, by ED staff, reviewed by Francisco ANTHONY. aa5 19:13 COVID-19 : Document "Date of Symptom Onset" if Symptomatic. Sent. mh5 19:13 Basic Metabolic Panel Sent. mh5 19:13 CBC with Diff Sent. mh5 19:13 LFT's Sent. mh5 19:13 Magnesium Sent. mh5 19:13 NT PRO-BNP Sent. mh5 19:13 PT-INR Sent. mh5 19:14 Patient has correct armband on for positive identification. Placed in gown. Bed in low mh5 position. Call light in reach. Side rails up X2. Warm blanket given. personnel monitor on. Pulse ox on. NIBP on. 19:14 Troponin (emerg Dept Use Only) Sent. [facility] 19:14 CT Head Brain wo Cont Sent. 5 19:14 Initial lab(s) drawn, by ED staff, sent to lab. COVID swab sent to lab. Inserted saline [facility] lock: 20 gauge in left antecubital area, using aseptic technique. Blood collected. 19:30 Report given to AQUILINO Moreira. 5 19:39 Lindsey called back with their physician to speak with RAJ Graham, provider of patient, tt3 regarding transfer request consultation. 19:54 Lindsey Chang called back with admin approval. The pt is going to [place] [address] [address] tt[address] Bed 715. The accepting physician is Dr. Jimenez. Dr. Jimenez accepted at [phone]. Nurse to call report to . Face sheet faxed to . Covid result pending. 20:46 No provider procedures requiring assistance completed. Patient transferred, IV remains em in place. Administered Medications: 19:04 Drug: niCARdipine (25mg/250ml) 5 mg/hr Route: IV; Rate: calculated rate; Site: left aa5 antecubital; 20:50 Follow up: IV Status: Infusion continued upon transfer em 20:14 Drug: Zofran (Ondansetron) 4 mg Route: IVP; Site: left antecubital; em 20:30 Follow up: Response: No adverse reaction em 20:17 Drug: morphine 4 mg Route: IVP; Site: left antecubital; em 20:30 Follow up: Response: No adverse reaction; Marked relief of symptoms; Pain is decreased em 20:46 Not Given (Physician Discretion): hydrALAZINE 10 mg IV at calculated rate once em Outcome: 19:47 ER care complete, transfer ordered by MD. oneil 20:49 Transferred by helicopter to [facility], Transfer form completed. em X-rays sent w/ patient. 20:49 Condition: stable 20:49 Instructed on the need for transfer, Demonstrated understanding of instructions. 20:51 Patient left the ED. em NIH Stroke Scale - NIH Stroke Score Date: 01/21/2021 Time: 18:48 Total Score = 3 1a. Level of Consciousness (LOC) - 0(Alert) 1b. Level of Consciousness (LOC) (Year \\T\\ Age) - 0(Both) 1c. LOC Commands (Open \\T\\ Closes Eyes/Deep Submergence Vehicle Operator) - 0(Both) 2. Best Gaze (Lateral Gaze Paresis) - 0(Normal) 3. Visual Field Loss - 0(No visual loss) 4. Facial Palsy - 0(Normal) 5a. Left Arm: Motor (10-second hold) - 0(No drift) 5b. Right Arm: Motor (10-second hold) - 0(No drift) 6a. Left Leg: Motor (5-second hold - always test supine) - 0(No drift) 6b. Right Leg: Motor (5-second hold - always test supine) - 2(Drift, some effort against gravity) 7. Limb Ataxia (finger/nose \\T\\ heel/chakraborty - test with eyes open) - 0(Absent) 8. Sensory Loss (pinprick arms/legs/face) - 1(Mild to moderate loss) 9. Best Language: Aphasia (description/naming/reading) - 0(No aphasia) 10. Dysarthria (speech clarity - read or repeat words) - 0(Normal) 11. Extinction and Inattention (visual/tactile/auditory/spatial/personal) - 0(No abnormality) Initials: aa5 NIH Stroke Scale - NIH Stroke Score Date: 01/21/2021 Time: 19:07 Total Score = 2 1a. Level of Consciousness (LOC) - 0(Alert) 1b. Level of Consciousness (LOC) (Year \\T\\ Age) - 0(Both) 1c. LOC Commands (Open \\T\\ Closes Eyes/Deep Submergence Vehicle Operator) - 0(Both) 2. Best Gaze (Lateral Gaze Paresis) - 0(Normal) 3. Visual Field Loss - 0(No visual loss) 4. Facial Palsy - 0(Normal) 5a. Left Arm: Motor (10-second hold) - 0(No drift) 5b. Right Arm: Motor (10-second hold) - 0(No drift) 6a. Left Leg: Motor (5-second hold - always test supine) - 0(No drift) 6b. Right Leg: Motor (5-second hold - always test supine) - 0(No drift) 7. Limb Ataxia (finger/nose \\T\\ heel/chakraborty - test with eyes open) - 1(Present in one limb) 8. Sensory Loss (pinprick arms/legs/face) - 1(Mild to moderate loss) 9. Best Language: Aphasia (description/naming/reading) - 0(No aphasia) 10. Dysarthria (speech clarity - read or repeat words) - 0(Normal) 11. Extinction and Inattention (visual/tactile/auditory/spatial/personal) - 0(No abnormality) Initials: cp Signatures: Harish Alfred RN Yessy Sampson RN RN aa5 Francisco Edwards PA PA cp Wise, Tara, RN RN 2 Nina Gann 5 Natasha Wright 2 Lokesh Blake tt3 Corrections: (The following items were deleted from the chart) 19:15 18:48 NIHSS Score: 3 aa5 aa5
--- NOTE | 2021-01-21 19:48 | EDPHYS ---
Physician Documentation [facility] Name: Aida Yan Age: 40 yrs Sex: Female : 1980 Arrival Date: 01/21/2021 Time: 16:35 Bed 26 Private MD: ED Physician Bill Valencia HPI: 01/21 18:59 This 40 yrs old Female presents to ER via Wheelchair with complaints of cp Numbness Of Arm, General Weakness, High Blood Pressure. 18:59 The patient's problem is reported as paresthesias, in left side of face, weakness, in cp the right upper extremity, in the right lower extremity. Onset: The symptoms/episode began/occurred upon awakening 2 days ago. Duration: The episode is continuous. Associated signs and symptoms: Pertinent positives: headache, Pertinent negatives: abdominal pain, chest pain, combativeness, palpitations, seizure. Severity of symptoms: in the emergency department the symptoms are unchanged despite home interventions. Patient's baseline: Neuro: alert and fully oriented, Motor: no deficits, Ambulation: walks without assistance, Speech: normal. CHIEF MEDICAL TECHNOLOGIST: 16:46 LMP 01/12/2021 tw2 Historical: - Allergies: 16:46 No Known Allergies; tw2 - Home Meds: 16:46 Novolin N 100 unit/mL Sub-Q susp 10 unit nightly [Active]; losartan 75 mg Oral tab 1 tw2 tab once daily [Active]; amlodipine 10 mg tab 1 tab once daily [Active]; glipizide-metformin 5-500 mg Oral tab 1 tab 2 times per day [Active]; - PMHx: 16:46 Hypertension; Diabetes - NIDDM; tw2 - PSHx: 16:46 ; tw2 - Immunization history:: Adult Immunizations. - Social history:: Smoking status: Patient denies any tobacco usage or history of. ROS: 19:02 Eyes: Negative for injury, pain, redness, and discharge. cp 19:02 Constitutional: Negative for body aches, chills, fever, poor PO intake. 19:02 Cardiovascular: Negative for chest pain, edema, palpitations. 19:02 Respiratory: Negative for cough, shortness of breath, wheezing. 19:02 Abdomen/GI: Negative for abdominal pain, nausea, vomiting, and diarrhea, constipation. 19:02 Neuro: Positive for headache, numbness, of the left side of face, weakness right arm and right leg, Negative for altered mental status, seizure activity, speech changes, syncope. 19:02 All other systems are negative. Exam: 19:04 Head/Face: Normocephalic, atraumatic. cp 19:04 Constitutional: The patient appears in no acute distress, alert, awake, non-diaphoretic, non-toxic, well developed, well nourished. 19:04 Eyes: Periorbital structures: appear normal, Pupils: equal, round, and reactive to light and accomodation, Extraocular movements: intact throughout, Conjunctiva: normal, no exudate, no injection, Lids and lashes: appear normal, bilaterally. 19:04 ENT: External ear(s): are unremarkable, Nose: is normal, Mouth: Lips: moist, Oral mucosa: moist, Posterior pharynx: Airway: no evidence of obstruction, patent. 19:04 Neck: ROM/movement: is normal, is supple, without pain, no range of motions limitations. 19:04 Chest/axilla: Inspection: normal. 19:04 Cardiovascular: Rate: normal, Rhythm: regular, Edema: is not appreciated, JVD: is not appreciated. 19:04 Respiratory: the patient does not display signs of respiratory distress, Respirations: normal, no use of accessory muscles, no retractions, labored breathing, is not present, Breath sounds: are clear throughout, no decreased breath sounds. 19:04 Abdomen/GI: Inspection: abdomen appears normal, Palpation: abdomen is soft and non-tender, in all quadrants. 19:04 Neuro: Orientation: to person, place \\T\\ time. Mentation: is normal, Cerebellar function: Romberg testing is negative, dysmetria is noted on the right, the patient is unable to track right heel to left chakraborty, Motor: moves all fours, Sensation: light touch is decreased in the right arm and right leg and left side of face. 19:10 Radiologist reports: 16 mm left basal ganglia bleed cp 19:10 ECG was reviewed by the Attending Physician. Vital Signs: 16:39 BP 215 / 98; Pulse 94; Resp 17; Temp 98.3(O); Pulse Ox 100% on R/A; Weight 85.73 kg tw2 (R); Height 5 ft. 2 in. (157.48 cm); Pain 8/10; 16:50 BP 200 / 82; tw2 18:47 BP 187 / 97; Pulse 84; Resp 20 S; Pulse Ox 100% on R/A; aa5 18:55 BP 174 / 84; Pulse 84; Resp 18; Pulse Ox 100% on R/A; aa5 19:04 BP 193 / 95; Pulse 86; Resp 18 S; Pulse Ox 100% on R/A; aa5 19:06 BP 223 / 98; Pulse 91; Resp 18; Pulse Ox 100% on R/A; aa5 19:10 BP 185 / 83; Pulse 89; Resp 16 S; Pulse Ox 100% on R/A; aa5 19:20 BP 181 / 82; Pulse 107; Resp 18 S; Pulse Ox 100% on R/A; aa5 19:25 BP 169 / 81; Pulse 101; Resp 16 S; Pulse Ox 100% on R/A; aa5 19:30 BP 131 / 82; Pulse 97; Resp 16 S; Pulse Ox 100% on R/A; aa5 19:33 BP 160 / 75; Pulse 94; Resp 18 S; Pulse Ox 100% on R/A; aa5 19:38 BP 152 / 78; Pulse 97; Resp 18 S; Pulse Ox 100% on R/A; aa5 19:45 BP 150 / 75; Pulse 97; Resp 16 S; Pulse Ox 100% on R/A; aa5 20:13 BP 145 / 71; Pulse 95; Resp 20; Pulse Ox 100% on R/A; Pain 9/10; em 20:24 BP 129 / 68; Pulse 99; Resp 18; Pulse Ox 98% on R/A; em 16:39 Body Mass Index 34.57 (85.73 kg, 157.48 cm) tw2 NIH Stroke Scale Scores: 18:48 NIHSS Score: 3 aa5 19:07 NIHSS Score: 2 cp MDM: 18:44 Patient medically screened. 19:00 Differential diagnosis: CVA, TIA, metabolic disorder, drug effects. 19:45 Data reviewed: vital signs, nurses notes, lab test result(s), EKG, radiologic studies, CT scan. 20:00 Physician consultation: was contacted at 19:45, regarding regarding transfer, to [facility]. patient's condition, accepting physician will be DR Jenny Jimenez. 01/21 18:43 Order name: Basic Metabolic Panel cp 01/21 18:43 Order name: CBC with Diff cp 01/21 18:43 Order name: LFT's cp 01/21 18:43 Order name: Magnesium cp 01/21 18:43 Order name: NT PRO-BNP cp 01/21 18:43 Order name: PT-INR cp 01/21 18:43 Order name: Troponin (emerg Dept Use Only) cp 01/21 18:48 Order name: COVID-19 : Document "Date of Symptom Onset" if Symptomatic. cp 01/21 19:25 Order name: CBC with Automated Diff; Complete Time: 19:40 EDMS 01/21 19:40 Interpretation: Normal except: HGB 11.1; HCT 33.7; PLT 407; LYM% 48.1. cp 01/21 19:35 Order name: Basic Metabolic Panel; Complete Time: 19:40 EDMS 01/21 19:35 Order name: Liver (Hepatic) Function; Complete Time: 19:40 EDMS 01/21 19:35 Order name: Troponin (Emerg Dept Use Only); Complete Time: 19:40 EDMS 01/21 19:35 Order name: NT PRO-BNP; Complete Time: 19:40 EDMS 01/21 19:35 Order name: Magnesium; Complete Time: 19:40 EDMS 01/21 18:02 Order name: CT Head Brain wo Cont rn 01/21 18:43 Order name: EKG; Complete Time: 18:44 cp 01/21 18:43 Order name: Cardiac monitoring; Complete Time: 18:47 cp 01/21 18:43 Order name: EKG - Nurse/Tech; Complete Time: 19:08 cp 01/21 18:43 Order name: IV Saline Lock; Complete Time: 18:57 cp 01/21 18:43 Order name: Labs collected and sent; Complete Time: 18:57 cp 01/21 18:43 Order name: O2 Per Protocol; Complete Time: 18:57 cp 01/21 18:43 Order name: O2 Sat Monitoring; Complete Time: 18:57 cp 01/21 18:46 Order name: CT; Complete Time: 18:49 EDMS 01/21 19:10 Interpretation: Report reviewed. cp 01/21 19:43 Order name: Protime (+INR) EDMS 01/21 19:48 Order name: CORONAVIRUS EDMS 01/21 20:41 Order name: SARS-COV-2 RT PCR EDMS EC:10 Rate is 92 beats/min. Rhythm is regular. UT interval is normal. QRS interval is normal. cp QT interval is normal. Interpreted by me. Reviewed by me. Administered Medications: 19:04 Drug: niCARdipine (25mg/250ml) 5 mg/hr Route: IV; Rate: calculated rate; Site: left aa5 antecubital; 20:50 Follow up: IV Status: Infusion continued upon transfer em 20:14 Drug: Zofran (Ondansetron) 4 mg Route: IVP; Site: left antecubital; em 20:30 Follow up: Response: No adverse reaction em 20:17 Drug: morphine 4 mg Route: IVP; Site: left antecubital; em 20:30 Follow up: Response: No adverse reaction; Marked relief of symptoms; Pain is decreased em 20:46 Not Given (Physician Discretion): hydrALAZINE 10 mg IV at calculated rate once em Disposition: 01/21/21 19:47 Transfer ordered to [facility]. Diagnosis are Left Basal Ganglia Hemorrhage , Weakness - Right Upper Extremity and Right Lower Extremity, Paresthesia of skin - Left Side of Face. - Reason for transfer: Higher level of care. - Accepting physician is DR Jenny Jimenez. - Condition is Stable. - Problem is new. - Symptoms have improved. NIH Stroke Scale - NIH Stroke Score Date: 01/21/2021 Time: 18:48 Total Score = 3 1a. Level of Consciousness (LOC) - 0(Alert) 1b. Level of Consciousness (LOC) (Year \\T\\ Age) - 0(Both) 1c. LOC Commands (Open \\T\\ Closes Eyes/Rib Chopper) - 0(Both) 2. Best Gaze (Lateral Gaze Paresis) - 0(Normal) 3. Visual Field Loss - 0(No visual loss) 4. Facial Palsy - 0(Normal) 5a. Left Arm: Motor (10-second hold) - 0(No drift) 5b. Right Arm: Motor (10-second hold) - 0(No drift) 6a. Left Leg: Motor (5-second hold - always test supine) - 0(No drift) 6b. Right Leg: Motor (5-second hold - always test supine) - 2(Drift, some effort against gravity) 7. Limb Ataxia (finger/nose \\T\\ heel/chakraborty - test with eyes open) - 0(Absent) 8. Sensory Loss (pinprick arms/legs/face) - 1(Mild to moderate loss) 9. Best Language: Aphasia (description/naming/reading) - 0(No aphasia) 10. Dysarthria (speech clarity - read or repeat words) - 0(Normal) 11. Extinction and Inattention (visual/tactile/auditory/spatial/personal) - 0(No abnormality) Initials: aa5 NIH Stroke Scale - NIH Stroke Score Date: 01/21/2021 Time: 19:07 Total Score = 2 1a. Level of Consciousness (LOC) - 0(Alert) 1b. Level of Consciousness (LOC) (Year \\T\\ Age) - 0(Both) 1c. LOC Commands (Open \\T\\ Closes Eyes/Rib Chopper) - 0(Both) 2. Best Gaze (Lateral Gaze Paresis) - 0(Normal) 3. Visual Field Loss - 0(No visual loss) 4. Facial Palsy - 0(Normal) 5a. Left Arm: Motor (10-second hold) - 0(No drift) 5b. Right Arm: Motor (10-second hold) - 0(No drift) 6a. Left Leg: Motor (5-second hold - always test supine) - 0(No drift) 6b. Right Leg: Motor (5-second hold - always test supine) - 0(No drift) 7. Limb Ataxia (finger/nose \\T\\ heel/chakraborty - test with eyes open) - 1(Present in one limb) 8. Sensory Loss (pinprick arms/legs/face) - 1(Mild to moderate loss) 9. Best Language: Aphasia (description/naming/reading) - 0(No aphasia) 10. Dysarthria (speech clarity - read or repeat words) - 0(Normal) 11. Extinction and Inattention (visual/tactile/auditory/spatial/personal) - 0(No abnormality) Initials: thad Addendum: 01/23/2021 19:03 Co-signature as Attending Physician, Bill Valencia MD. rn Signatures: Dispatcher [employer] Harish Melton RN RN em Nieto, Roman, MD MD rn Calderon, Audri, RN RN aa5 Francisco Edwards PA PA cp Wise, Tara, RN RN tw2 Lyla Manuel RN RN ca1 Corrections: (The following items were deleted from the chart) 01/21 20:04 19:47 01/21/2021 19:47 Transfer ordered to [facility]. Diagnosis is Left Basal Ganglia Hemorrhage ; Weakness - Right Upper Extremity and Right Lower Extremity; Paresthesia of skin - Left Side of Face. Reason for transfer: Higher level of care. Accepting physician is Doctor. Condition is Stable. Problem is new. Symptoms have improved. cp 20:51 20:04 01/21/2021 19:47 Transfer ordered to [facility]. Diagnosis is Left Basal Ganglia Hemorrhage ; Weakness - Right Upper Extremity and Right Lower Extremity; Paresthesia of skin - Left Side of Face. Reason for transfer: Higher level of care. Accepting physician is DR Jenny Jimenez. Condition is Stable. Problem is new. Symptoms have improved. cp
[2021-01-21] MEDS ORDERED: ONDANSETRON 4 MG/2 ML VIAL ONE (20:28)
[2021-01-21] MEDS ORDERED: MORPHINE 4 MG/ML SYR ONE (20:28)
[2021-01-22 01:43] VITALS: TEMP 98.3
[2021-01-22 02:00] VITALS: BP 129/68; O2SAT 98
--- NOTE | 2021-01-22 05:12 | EKG ---
Test Date: 2021-01-21 Test Time: 19:04:31 Employment Manager: CELSA MEASUREMENT RESULTS: Intervals: Rate: 92 AL: 142 QRSD: 80 QT: 340 QTc: 420 [place]: P: 40 AL: 142 QRS: 36 T: -3 INTERPRETIVE STATEMENTS: Normal sinus rhythm Nonspecific T wave abnormality Abnormal ECG Compared to ECG 11/23/2020 01:49:25 Possible ischemia no longer present T-wave abnormality still present Electronically Signed On 01-22-21 05:11:09 KNOWLEDGE MANAGER by Deon Cain
== END 2021-01-21 20:51 | disposition short-term general hospital (02) ==
LOC: ER 16:32
DX: I61.0 Nontraumatic intracerebral hemorrhage in hemisphere, subcortical (principal); R29.703 NIHSS score 3; E11.9 Type 2 diabetes mellitus without complications; I10 Essential (primary) hypertension; Z79.4 Long term (current) use of insulin; G81.91 Hemiplegia, unspecified affecting right dominant side; R20.2 Paresthesia of skin
CPT/HCPCS: 36415; 70450; 80048; 80076; 83735; 83880; 84484; 85025; 85610; 93005; 96365; 96366; 96375; 99285; J2405; U0003

== ENCOUNTER 2021-10-05 11:21 | Inpatient (IN) | payer OTHER, SELFPAY ==
--- OUTSIDE RECORDS SUMMARY | 2021-10-05 11:30 | XMS REPORT | Continuity of Care Document ---
:1980 Author Organization [facility] t Address [address] [place] [address] Care Team Providers Name Role Phone Pcp, Does Not Have A Primary Care Physician JONAH MARIE Attending Clinician Unavailable JOIE Attending Clinician Unavailable Doctor Unassigned, Name Attending Clinician Unavailable Romeo Perez MD Attending Clinician LORRAINE Attending Clinician Unavailable Mike Mixon MD Attending Clinician MIKE MIXON Attending Clinician Unavailable JONAH MARIE Admitting Clinician Unavailable Physician, Primary or Family Admitting Clinician UnavailNASEEM Colindres Admitting Clinician Unavailable Payers Payer Name Policy Type Policy Number Effective Date Expiration Date S ource Problems Condition Condition Condition Status Onset Resolution Last Treating Co mments Source Name Details Category Date Date Treatment Clinician Date Diabetes Diabetes Disease Active Overview: Un [place] mellitus mellitus 7-10 ICD10 ity of during during 00:00: Diagnosis [place] , , 00 Term Me dical antepartum antepartum [place] Branch Utility Previous Previous Disease Active Overview: Un hamida 7-10 01/04/2005 ity of delivery, delivery, 00:00: : Primary [place] delivered 00 Low Medi wilbert transvers Branch e delivery by Dr. Jabier Stallings at [facility]. See external records for more detail.IC D10 Diagnosis Term [place] Utility Rubella Rubella Disease Active Univers immune immune 05-14 ity of 00:00: [place] 00 Medical Branch Immune to Immune to Disease Active Uni vers varicella varicella 05-14 ity of 00:00: [place] 00 Medical Branch UTI UTI Disease Active Overview: Univer s (urinary (urinary 05-13 JOAN - ity of tract tract 00:00: [place] infection) infection) 00 Me dical Branch High-risk High-risk Disease Active Uni vers 05-13 ity of 00:00: [place] 00 Medical Branch Chronic Chronic Disease Active Univers hypertensi hypertensi 05-13 it y of on in on in 00:00: [place] 00 [facility] Branch Type II or Type II or Disease Resolve 2014-05-23 2014-05-23 Univers unspecifie unspecifie d 05-13 00:00:00 16:23:43 ity of d type d type 00:00: [place] diabetes diabetes 00 Medica l mellitus mellitus Branch without without mention of mention of complicati complicati on, not on, not stated as stated as uncontroll uncontroll ed ed Allergies, Adverse Reactions, Alerts Allergy Allergy Status Severity Reaction(s) Onset Inactive Treating Comm ents Source Name Type Date Date Clinician No Known DA Active U 2020-0 [facility] 06[facility]14 [place] [facility] No Known DA Active U 2020-0 [facility] Allergie 06-14 [place] 00:[facility] NO KNOWN Drug Active Univers ALLERGIE Class ity of S [facility] [place] [facility] NO KNOWN Allergy Active [facility] Social History Social Habit Start Date Stop Date Quantity Comments Source Exposure to Not sure [facility] SARS-CoV-2 [facility] (event) Branch Tobacco use and 2020-11-20 2020-11-20 Never used Universit y of exposure 00:00:00 00:00:00 [facility] [place] [facility] Alcohol intake 2020-11-20 2020-11-20 Current University of 00:00:00 00:00:00 non-drinker of [facility] alcohol Branch (finding) Sex Ass[birth year] At [birth year] Universit y of 00:00:00 00:00:00 [facility] [place] [facility] Smoking Status Start Date Stop Date Source Never smoker [facility] Medications Ordered Filled Start Stop Current Ordering Indication Dosage Frequency Signature Comments Components Source Medication Medication Date Date Medication? Clinician (SIG) Name Name acetaminoph 2020- No 1000mg 1,000 mg, Univers en 01-25 Oral, ity of (TYLENOL) 06:30: 06:03 ONCE, 1 [place] tablet [place] :00 dose, [facility] 1,000 mg 01/25/21 at [facility] h 0030, Routine HYDROcodone Yes 1{tbl} 1 tablet, Univers -acetaminop 01-25 Oral, ity of hen (NORCO) 05:31: Q6HPRN, Jose as 10-325 mg 27 Starting Medica l tablet 1 Sat Branch tablet 01/24/21 at 2331, Until Discontinu ed, Routine, Pain (scale 7-10) ondansetron 2020- No 4mg 4 mg, Slow Univers (ZOFRAN 01-25 IV Push, ity of (PF)) 04:15: 03:17 ONCE, 1 [place] injection 4 00 :00 dose, Sat Med ical mg 01/24/21 at Branch 2215, SHELLY FENTanyl PF 2020- No 50ug 50 mcg, Un hamida (SUBLIMAZE 01-25 Slow IV ity o f (PF)) 04:15: 03:17 Push, [place] injection 00 :00 ONCE, 1 Medical 50 mcg dose, Sat Branch 01/24/21 at 2215, Routine labetalol Yes [id number] 100mg Take 1 Tab Univers (NORMODYNE) 7-10 by mouth 3 it y of 100 mg 00:00: (three) [place] tablet 00 times Medical daily. Branch labetalol Yes [id number] 100mg Take 1 Tab Univers (NORMODYNE) 7-10 by mouth 3 it y of 100 mg 00:00: (three) [place] tablet 00 times Medical daily. Branch labetalol Yes [id number] 100mg Take 1 Tab Univers (NORMODYNE) 7-10 by mouth 3 it y of 100 mg 00:00: (three) [place] tablet 00 times Medical daily. [place] labetalol Yes [id number] 100mg Take 1 Tab Univers (NORMODYNE) 7-10 by mouth 3 it y of 100 mg 00:00: (three) [place] tablet 00 times Medical daily. [place] labetalol Yes [id number] 100mg Take 1 Tab Univers (NORMODYNE) 7-10 by mouth 3 it y of 100 mg 00:00: (three) [place] tablet 00 times Medical daily. [place] labetalol Yes [id number] 100mg Take 1 Tab Univers (NORMODYNE) 7-10 by mouth 3 it y of 100 mg 00:00: (three) [place] tablet 00 times Medical daily. [place] labetalol Yes [id number] 100mg Take 1 Tab Univers (NORMODYNE) 7-10 by mouth 3 it y of 100 mg 00:00: (three) [place] tablet 00 times Medical daily. [place] labetalol Yes Hypertensio 100mg Take 1 Tab Univers (NORMODYNE) 7-10 n in by mouth 3 it y of 100 mg 00:00: , (three) [place] tablet 00 pre-existin times Medic al g, daily. [place] antepartum Immunizations Ordered Filled Immunization Date Status Comments [facility] Immunization Name Name [facility] 2013-02-12 Completed University of 00:00:00 [facility] [place] [facility] TD 2013-02-12 Completed University of 00:00:00 [facility] [place] [facility] TDAP 2013-02-12 Completed University of 00:00:00 [facility] [place] [facility] TDAP 2013-02-12 Completed University of 00:00:00 [facility] [place] [facility] TDAP 2013-02-12 Completed University of 00:00:00 [facility] [place] [facility] TDAP 2013-02-12 Completed University of 00:00:00 [facility] [place] [facility] TDAP 2013-02-12 Completed [facility] Com[facility] University of 00:00:00 [facility] [place] [facility] Rubella 2004-06-02 Completed University of 00:00:00 [facility] [place] [facility] Rubella 2004-06-02 Completed University of 00:00:00 [facility] [place] [facility] Rubella 2004-06-02 Completed University of 00:00:00 [facility] [place] [facility] Rubella 2004-06-02 Completed University of 00:00:00 [facility] [place] [facility] Rubella 2004-06-02 Completed University of 00:00:00 [facility] [place] [facility] Rubella 2004-06-02 Completed University of 00:00:00 [facility] [place] [facility] Rubella 2004-06-02 Completed University of 00:00:00 [facility] [place] [facility] Rubella 2004-06-02 Completed University of 00:00:00 [facility] [place] [facility] Vital Signs Vital Name Observation Time Observation Value Comments Source WEIGHT 2021-01-21 85.5 kg 21:36:00 HEIGHT 2021-01-21 157.5 cm 21:36:00 Systolic blood 2021-01-25 159 mm[Hg] University of pressure 06:00:00 [facility] [place] [facility] Diastolic blood 2021-01-25 88 mm[Hg] University o f pressure 06:00:00 [facility] [place] [facility] Heart rate 2021-01-25 85 /min University 06:00:00 [facility] [place] [facility] Respiratory rate 2021-01-25 15 /min University 06:00:00 [facility] [place] [facility] Oxygen saturation 2021-01-25 98 /min [facility] in Arterial blood 06:00:00 [facility] by Pulse oximetry [place] Body temperature 2021-01-25 36.94 Valarie [place] of 04:00:00 [facility] [place] [facility] Body height 2021-01-25 170.2 cm University of 03:05:00 [facility] [place] [facility] Body weight 2021-01-25 90.719 kg University of 03:05:00 [facility] [place] [facility] BMI 2021-01-25 31.32 kg/m2 University of 03:05:00 [facility] [place] [facility] WEIGHT 2021-01-21 85.5 kg 21:36:00 HEIGHT 2021-01-21 157.5 cm 21:36:00 Systolic blood 2020-11-20 197 mm[Hg] [facility] University o f pressure 15:43:00 just took b/p [facility] Diastolic blood 2020-11-20 99 mm[Hg] [facility] University of pressure 15:43:00 just took b/p [facility] Heart rate 2020-11-20 89 /min University of 15:43:00 [facility] [place] [facility] Body temperature 2020-11-20 36.67 Valarie University of 15:43:00 [facility] [place] [facility] Body height 2020-11-20 160 cm University of 15:43:00 [facility] [place] [facility] Body weight 2020-11-20 85.458 kg University 15:43:00 [facility] [place] [facility] BMI 2020-11-20 33.37 kg/m2 University 15:43:00 [facility] [place] [facility] Systolic blood 2020-11-20 197 mm[Hg] [facility] University o f pressure 15:43:00 just took b/p [facility] Diastolic blood 2020-11-20 99 mm[Hg] [facility] University of pressure 15:43:00 just took b/p [facility] Heart rate 2020-11-20 89 /min University 15:43:00 [facility] [place] [facility] Body temperature 2020-11-20 36.67 Valarie University 15:43:00 [facility] [place] [facility] Body height 2020-11-20 160 cm [facility] 15:43:00 [facility] [place] [facility] Body weight 2020-11-20 85.458 kg [facility] 15:43:00 [facility] [place] [facility] BMI 2020-11-20 33.37 kg/m2 [facility] 15:43:00 [facility] [place] [facility] Procedures Procedure Date / Time Performing Clinician Source Performed REFERRAL- 2021-03-20 05:01:00 Doctor Unassigned, No [facility] REQUEST/RESPONSE Name [facility] Branch REFERRAL- 2021-03-20 05:01:00 Doctor Unassigned, No [facility] REQUEST/RESPONSE Name [facility] CT HEAD WO CONTRAST 2021-01-25 03:30:21 Ceci Perez [facility] PROTHROMBIN TIME / INR 2021-01-25 03:19:00 Ceci Perez [facility] COMP. METABOLIC PANEL 2021-01-25 03:19:00 Ceci Perez [facility] ([id number]) [facility] CBC WITH DIFF 2021-01-25 03:19:00 Ceci Perez [facility] NOTICE OF PRIVACY 2021-01-25 02:51:41 Doctor Unassigned, No [facility] PRACTICES Name [facility] CONSENT/REFUSAL FOR 2021-01-25 02:51:13 [facility]AT[facility] Name [facility] XR FOOT 3+ VW LEFT 2020-11-20 16:03:00 Stephanie Mixon [facility] XR HAND 3+ VW LEFT 2020-11-20 16:03:00 Stephanie Mixon of [facility] Plan of Care Planned Activity Planned Date Details Comments Source Future Scheduled 2023-02-12 DTaP,Tdap,and Td Univers ity [facility] Test 00:00:00 Vaccines (2 - Td) Medical Br anch [code = DTaP,Tdap,and Td Vaccines (2 - Td)] Future Scheduled 2022-01-24 Creatinine [facility] Test 00:00:00 measurement Medical Branch (procedure) [code = 75524359] Future Scheduled 2021-07-15 INFLUENZA VACCINE Univer [facility] Test 00:00:00 (Season Ended) [code Medical Branch = INFLUENZA VACCINE (Season Ended)] Future Scheduled 2016-09-12 Screening for University [facility] Test 00:00:00 malignant neoplasm of Medica l Branch cervix (procedure) [code = 265285680] Future Scheduled 2014-11-12 [facility]00 measurement Medical Branch (procedure) [code = 08329921] Future Scheduled 2000 Diabetic foot [facility] Test 00:00:00 examination Medical Branch (regime/therapy) [code = 197643641] Future Scheduled 2000 Hepatitis C screening [facility] [place] Test 00:00:00 (procedure) [code = Medical Branch 186156110] Future Scheduled 1998 SARS-CoV-2 (COVID-19) [facility] [place] Test 00:00:00 Vaccine (1) [code = Medical Branch SARS-CoV-2 (COVID-19) Vaccine (1)] Future Scheduled 1994 Depression screening Uni [facility] [place] Test 00:00:00 (procedure) [code = Medical Branch 534647398] Future Scheduled 1992 Examination of retina [facility] [place] Test 00:00:00 (procedure) [code = Medical Branch 251490098] Future Scheduled 1992 Calculated low Universit y [facility] Test 00:00:00 density lipoprotein Medical Branch cholesterol level (procedure) [code = 693303091] Future Scheduled 1992 Microalbumin [facility] Test 00:00:00 measurement, urine, Medical Branch quantitative (procedure) [code = 148366847] Future Scheduled 1983 VARICELLA VACCINES (1 [facility] [place] Test 00:00:00 of 2 - 2-dose [facility] childhood series) [code = VARICELLA VACCINES (1 of 2 - 2-dose childhood series)] Encounters Start End Encounter Admission Attending Care Care Encounter Source Date/Time Date/Time Type Type Clinicians Facility Department ID 2021-09-13 Emergency [facility] [id number] Univers 05:49:13 ity of [facility] [place] [facility] 2021-01-21 Inpatient ER CYNTHIA, [facility] Neurology [id number] SLE 21:25:00 CHARLA 2020-06-15 Inpatient [facility] [id number] [facility] 20:42:00 [id number] [place] [facility] 2020-06-14 Inpatient [facility] ER [id number] [facility] 12:45:00 [id number] [facility] 2021-03-20 2021-03-20 Outpatient Braxton SALTER [facility] [id number] Univers 00:00:00 00:00:00 ILAN [id number] ity of [facility] [place] [facility] 2021-03-20 2021-03-20 Orders Doctor NICHOLAS [id number] Univers 00:00:00 00:00:00 Only Unassigned, AMILCAR [id number] ity of [place] [facility] 4.2.7.2.686 Jose as [id number] [facility] 009 Branch 2021-01-24 2021-01-25 Emergency [facility] [id number] Univers 21:00:00 00:07:00 Ceci See [id number] ity of [place] 4.2.7.2.686 [place] [facility] [phone] [facility] 084 Branch 2021-01-24 2021-01-24 Orders Doctor NICHOLAS [id number] Univers 00:00:00 00:00:00 Only Unassigned, AMILCAR [id number] ity of [place] [facility] 4.2.7.2.686 Jose as [id number] [facility] 009 Branch 2020-12-22 2020-12-22 [id number] Univers 10:00:00 10:00:00 CRISTOPHER [id number] [facility] 2020-12-22 2020-12-22 Outpatient R MICCHASTITY [facility] [id number] [facility] 10:00:00 10:00:00 [facility] 2020-11-20 2020-11-20 [facility] [id number] [facility] 09:54:01 23:59:00 Encounter Stephanie SPECIALTY [id number] ity [facility] 4.2.7.2.686 [facility] AT [id number] Ks ap ALFARO 809 [facility] 2020-11-20 2020-11-20 Office [facility] [id number] 09:28:05 10:34:37 Visit Stephanie SPECIALTY [id number] [facility] 4.2.7.2.686 CENTER AT [phone] ANGELINA 198 [facility] 2020-11-20 2020-11-20 Office [facility] [id number] Univers 09:28:05 10:34:37 Visit [id number]2.[facility] AT [id number] Ks ap ALFARO 198 [facility] 2020-11-20 2020-11-20 Outpatient R APOLINAR [facility] [id number] [facility] 09:50:00 09:50:00 STEPHANIE [facility] Results Test Test Test Results Result Source Description Time Comments Comments CT HEAD WO 2021-01- Acute-subacute left basal University of CONTRAST 14 ganglia hemorrhage with [place] [facility] 04:55:03 mild surrounding edemaand Branch no significant mass effect. Interval change is unable to be commentedon due to the lack of prior imaging. Preliminary Report Dictated by Resident: Topher Verduzco I, Cristopher Womack MD., have reviewed this study and agree with theabove report.CT HEAD WO CONTRAST HISTORY: Headache, intracranial hemorrhage suspected Recently HemorrhagicStroke 3 days ago, admitted to [facility] and discharged homeyesterday, presenting to the ED with severe MUÑOZ, Elevated blood pressure.R/o Rebleed COMPARISON: None TECHNIQUE: Noncontrast CT of the brain was obtained with coronal andsagittal reconstructions. FINDINGS: The ventricles and cerebral sulci are normal in caliber and configuration.No hydrocephalus, midline shift or pathological extra-axial fluidcollection is present. The basal cisterns are unremarkable. A left basal ganglia hemorrhage is present which measures 1.9 x 1 x 2 cm(AP by TV by CC) and results in no significant mass effect. No parenchymalattenuation abnormality. The steiner-white matter differentiation ispreserved. The mastoid air cells and paranasal air sinuses are clear. The calvariumand central skull base are unremarkable. [facility], Radiant Results Inft User - 01/24/2021 10:56 PM CSTCT HEAD WO CONTRASTHISTORY: Headache, intracranial hemorrhage suspected Recently HemorrhagicStroke 3 days ago, admitted to [facility] and discharged homeyesterday, presenting to the ED with severe MUÑOZ, Elevated blood pressure.R/o RebleedCOMPARISON: NoneTECHNIQUE: Noncontrast CT of the brain was obtained with coronal andsagittal reconstructions.FINDINGS:T he ventricles and cerebral sulci are normal in caliber and configuration.No hydrocephalus, midline shift or pathological extra-axial fluidcollection is present. The basal cisterns are unremarkable.A left basal ganglia hemorrhage is present which measures 1.9 x 1 x 2 cm(AP by TV by CC) and results in no significant mass effect. No parenchymalattenuation abnormality. The steiner-white matter differentiation ispreserved.The mastoid air cells and paranasal air sinuses are clear. The calvariumand central skull base are unremarkable.IMPRESSIONAcu te-subacute left basal ganglia hemorrhage with mild surrounding edemaand no significant mass effect. Interval change is unable to be commentedon due to the lack of prior imaging.Preliminary Report Dictated by Resident: Topher Prince, Cristopher Womack MD., have reviewed this study and agree with theabove report. PROTHROMBIN TIME / INR 2021-01-25 04:20:27 Test Item Value Reference Range Interpretation Comme nts PROTIME PATIENT (test code = See_Comment L [Automated message] The system 5964-2) which generated this result transmitted ref erence range: 12.0 - 14.7 Sec onds. The reference range was not used to interpret this result as normal/abnormal . INR (test code = 6301-6) Nor mal INR <1.1; Warfarin Therapeutic ran ge 2.0 to 3.0 or 2.5 to 3.5, dep ending upon the indications. Lab Interpretation (test code Abnormal = 19532-9) [facility]. METABOLIC PANEL (98803)2021-01-25 03:50:30 Test Item Value Reference Range Interpretation Comments NA (test code = 136 mmol/L 135-145 5996474520) K (test code = 4.2 mmol/L 3.5-5.0 9667158646) CL (test code = 100 mmol/L 98-108 8704628704) CO2 TOTAL (test code = 25 mmol/L 23-31 9146710184) AGAP (test code = 2-16 3745763648) BUN (test code = 15 mg/dL 7-23 1686493944) GLUCOSE (test code = 286 mg/dL 70-110 H 4151171259) CREATININE (test code = 0.83 mg/dL 0.50-1.04 7382303511) TOTAL BILI (test code = 0.7 mg/dL 0.1-1.9 8015026801) CALCIUM (test code = 9.6 mg/dL 8.6-10.6 3427032492) T PROTEIN (test code = 7.4 g/dL 6.3-8.2 3971093447) ALBUMIN (test code = 4.2 g/dL 3.5-5.0 4968573580) ALK PHOS (test code = 123 U/L 34-122 H 0664743020) ALTv (test code = 18 U/L 5-35 1742-6) AST(SGOT) (test code = 20 U/L 13-40 5878205110) eGFR Calculation mL/min/1.73m2 (Non-) (test code = 1995315706) eGFR Calculation mL/min/1.73m2 () (test code = 4016076376) KELLY (test code = KELLY) Association of Glomerular Filtration Rate (GFR) and Staging of Kidney Disease* + --+ --+ ------+| GFR (mL/min/1.73 m2) ?| With Kidney Damage ?| ?Without Kidney Damage+ --------+ --------+ +| ?>90 ?| ?Stage one ?| ? Normal ?+ ---+ ---+ -------+| ?60-89 ?| ?Stage two ?| ? Decreased GFR ? + --+ --+ ------+| ?30-59 ?| ?Stage three ?| ? Stage three ? + --+ --+ ------+| ?15-29 ?| ?Stage four ? | ? Stage four ?+ ---+ ---+ -------+| ?<15 (or dialysis) ? ?| ?Stage five ? | ? Stage five ?+ ---+ ---+ -------+ *Each stage assumes the associated GFR level has been in effect for at least three months. ?Stages 1 to 5, with or without kidney disease, indicate chronic kidney disease. Notes: Determination of stages one and two (with eGFR >59mL/min/1.73 m2) requires estimation of kidney damage for at least three months as defined by structural or functional abnormalities of the kidney, manifested by either:Pathological abnormalities or Markers of kidney damage (including abnormalities in the composition of the blood or urine or abnormalities in imaging tests). Lab Interpretation Abnormal (test code = 52329-9) [facility] WITH [id number] 03:42:48 Test Item Value Reference Range Interpretation Comments WBC (test code = See_Comment [Automated 9636-2) message] The sy stem which generated this result transmitted reference range : 4.30 - 11.10 10*3/?L. The reference range was not used to interpret this result as normal/abnormal . RBC (test code = See_Comment [Automated 128-8) message] The sy stem which generated this result transmitted reference range : 3.93 - 5.25 10*6/?L. The reference range was not used to interpret this result as normal/abnormal . HGB (test code = 11.5 g/dL 11.6-15.0 L 718-7) HCT (test code = 34.7 % 35.7-45.2 L 4544-3) MCV (test code = 84.0 fL 80.6-95.5 787-2) MCH (test code = 27.8 pg 25.9-32.8 785-6) MCHC (test code = 33.1 g/dL 31.6-35.1 786-4) RDW-SD (test code = 39.9 fL 39.0-49.9 22287-6) RDW-CV (test code = 13.1 % 12.0-15.5 788-0) PLT (test code = See_Comment H [Automated 777-3) message] The sy stem which generated this result transmitted reference range : 166 - 358 10*3/ ?L. The reference r tatiana was not used to interpret this result as normal/abnormal . MPV (test code = 11.0 fL 9.5-12.9 66228-6) NRBC/100 WBC (test See_Comment [Automat ed code = 1325871497) message] The system which generated this result transmitted reference range : 0.0 - 10.0 /100 WBCs. The refer ence range was not u sed to interpret th is result as normal/abnormal . NRBC x10^3 (test code <0.01 See_Comment [Auto mated = 1570515436) message] The s ystem which generated this result transmitted reference range : 10*3/?L. The reference range was not used to interpret this result as normal/abnormal . GRAN MAT (NEUT) % 45.6 % (test code = 770-8) IMM GRAN % (test code 0.20 % = 9365091929) LYMPH % (test code = 46.8 % 736-9) MONO % (test code = 5.5 % 5905-5) EOS % (test code = 1.4 % 713-8) BASO % (test code = 0.5 % 706-2) GRAN MAT x10^3(ANC) 4.82 10*3/uL 1.88-7.09 (test code = 1829419149) IMM GRAN x10^3 (test <0.03 0.00-0.06 code = 2960507845) LYMPH x10^3 (test code 4.95 10*3/uL 1.32-3.29 H = 731-0) MONO x10^3 (test code 0.58 10*3/uL 0.33-0.92 = 742-7) EOS x10^3 (test code = 0.15 10*3/uL 0.03-0.39 711-2) BASO x10^3 (test code 0.05 10*3/uL 0.01-0.07 = 704-7) Lab Interpretation Abnormal (test code = 70062-8) [facility] [id number] 11:49:00 Test Item Value Reference Range Interpretation Comments POC-GLUCOSE METER 196 mg/dL 70-110 H : TESTED A T [facility] 6720 (BEAKER) (test code = [facility] [facility], 153) [address]: Hospice/Home Health Aide/Techni mary jane ID = [id number] for HUGO CAMACHO POCT-GLUCOSE [id number] 08:21:00 Test Item Value Reference Range Interpretation Comments POC-GLUCOSE METER 136 mg/dL 70-110 H : TESTED A T [facility] 6720 (BEAKER) (test code = [facility], 153) 18831: Hospice/Home Health Aide/Techni mary jane ID = [id number] for CHINA POLANCO CRISTOPHER POCT-GLUCOSE [id number] 06:24:00 Test Item Value Reference Range Interpretation Comments POC-GLUCOSE METER 147 mg/dL 70-110 H : TESTED A T [facility] 6720 (BEAKER) (test code = [facility], 153) 83665: Hospice/Home Health Aide/Techni mary jane ID = [id number] for MAGNUS FABIENNENATALIYA BARLOW BASIC METABOLIC [id number] 05:10:00 Test Item Value Reference Range Interpretation Comments SODIUM (BEAKER) 139 meq/L 136-145 (test code = 381) POTASSIUM (BEAKER) 4.0 meq/L 3.5-5.1 (test code = 379) CHLORIDE (BEAKER) 107 meq/L 98-107 (test code = 382) CO2 (BEAKER) (test 22 meq/L 22-29 code = 355) BLOOD UREA NITROGEN 14 mg/dL 7-21 (BEAKER) (test code = 354) CREATININE (BEAKER) 0.72 mg/dL 0.57-1.25 (test code = 358) GLUCOSE RANDOM 153 mg/dL 70-105 H (BEAKER) (test code = 652) CALCIUM (BEAKER) 8.2 mg/dL 8.4-10.2 L (test code = 697) EGFR (BEAKER) (test 91 mL/min/1.73 ESTIMA PRIYA GFR IS code = 1092) sq m NOT ACCURATE CREATININE CLEARANCE IN PREDICTING GLOMERULAR FILTRATION RATE . ESTIMATED GFR I S NOT APPLICABLE FOR DIALYSIS PATIEN TS. Hospice/Home Health Aide ID - [id number] 05:10:00 Test Item Value Reference Range Interpretation Comments MAGNESIUM (BEAKER) (test code = 1.8 mg/dL 1.6-2.6 627) Hospice/Home Health Aide ID - [id number] 05:10:00 Test Item Value Reference Range Interpretation Comments PHOSPHORUS (BEAKER) (test code = 3.4 mg/dL 2.3-4.7 604) Hospice/Home Health Aide ID - DBCBC W/PLT COUNT & AUTO [id number] 04:33:00 Test Item Value Reference Range Interpretation Comments WHITE BLOOD CELL COUNT (BEAKER) 8.7 K/ L 3.5-10.5 (test code = 775) RED BLOOD CELL COUNT (BEAKER) 3.71 M/ L 3.93-5.22 L (test code = 761) HEMOGLOBIN (BEAKER) (test code = 10.1 GM/DL 11.2-15.7 L 410) HEMATOCRIT (BEAKER) (test code = 31.6 % 34.1-44.9 L 411) MEAN CORPUSCULAR VOLUME (BEAKER) 85.2 fL 79.4-94.8 (test code = 753) MEAN CORPUSCULAR HEMOGLOBIN 27.2 pg 25.6-32.2 (BEAKER) (test code = 751) MEAN CORPUSCULAR HEMOGLOBIN CONC 32.0 GM/DL 32.2-35.5 L (BEAKER) (test code = 752) RED CELL DISTRIBUTION WIDTH 13.2 % 11.7-14.4 (BEAKER) (test code = 412) PLATELET COUNT (BEAKER) (test 345 K/CU MM 150-450 code = 756) MEAN PLATELET VOLUME (BEAKER) 10.6 fL 9.4-12.3 (test code = 754) NUCLEATED RED BLOOD CELLS 0 /100 WBC 0-0 (BEAKER) (test code = 413) NEUTROPHILS RELATIVE PERCENT 44 % (BEAKER) (test code = 429) LYMPHOCYTES RELATIVE PERCENT 49 % (BEAKER) (test code = 430) MONOCYTES RELATIVE PERCENT 5 % (BEAKER) (test code = 431) EOSINOPHILS RELATIVE PERCENT 2 % (BEAKER) (test code = 432) BASOPHILS RELATIVE PERCENT 1 % (BEAKER) (test code = 437) NEUTROPHILS ABSOLUTE COUNT 3.82 K/ L 1.56-6.13 (BEAKER) (test code = 670) LYMPHOCYTES ABSOLUTE COUNT 4.23 K/ L 1.18-3.74 H (BEAKER) (test code = 414) MONOCYTES ABSOLUTE COUNT (BEAKER) 0.47 K/ L 0.24-0.36 H (test code = 415) EOSINOPHILS ABSOLUTE COUNT 0.14 K/ L 0.04-0.36 (BEAKER) (test code = 416) BASOPHILS ABSOLUTE COUNT (BEAKER) 0.05 K/ L 0.01-0.08 (test code = 417) IMMATURE GRANULOCYTES-RELATIVE 0 % 0-1 PERCENT (BEAKER) (test code = 2801) POCT-GLUCOSE [id number] 21:51:00 Test Item Value Reference Range Interpretation Comments POC-GLUCOSE METER 174 mg/dL 70-110 H : TESTED A T [facility] 6720 (BEAKER) (test code = [place] [facility], 1538) [address]: Hospice/Home Health Aide/Techni mary jane ID = [id number] for NATALIYA WEAVER SARS-COV2/RT-PCR ([facility])2021-01-22 21:00:00 Test Item Value Reference Range Interpretation Comments SARS-COV2/RT-PCR (test Negative Not Detected, Negative, code = 9453094) See external report for linked test SARS-COV-2 [facility] (test code = 8837220) Negative result for this test determines that SARS-CoV-2 RNA was not present in the specimen above the Limit of Detection (LOD). However, Negative results do not preclude SARS-CoV-2 infection and should not be used as the sole basis for treatment or patient management decisions. Negative results mustbe combined with clinical observations, patient history, and epidemiological information. A false negative result may occur if a specimen is improperly collected, transported or handled. A false negative result should be considered if patient's recent exposures or clinical presentation indicate that COVID-19 (SARS-CoV-2) is likely and diagnostic tests for other causes of illness are negative. Re-testing should be considered in cases of suspected false negatives.The limit of detection for this assay is 800 copies/mL.This SARS CoV-2 test is a real-time RT-PCR test intended for the qualitative detection of nucleic acid from SARS-CoV-2 in a nasopharyngeal swab specimen collected from individuals susp ected of COVID-19 by their healthcare provider.This test has not been Food and Drug Administration (FDA) cleared or approved. This is a modified version of an approved Emergency Use Authorization (EUA) and is in the process of review by the FDA. Once authorized by the FDA, the issued EUA will be effective until the declaration that circumstances exist justifying the authorization of the emergency use of in vitro diagnostic tests for detection and/or diagnosis of COVID-19 is terminated under Section 564(b)(2) of the Act or the EUA is revoked under Section 564(g) of the Act.Fact Sheet for Healthcare Providers:https://www.[employer]/sites/default/files/product/documents/Fact_Shee q_GK_Ssazgdkmz_Qxzw_KTIH-XeG-4.pdfFact Sheet for Healthcare Patients:https://www.[employer]/sites/default/files/product/ documents/Iiuj_Ftfgf_Bfmvloat_Nrgf_XKRH-UeH-6.pdfPerforming Laboratory:[place] [address], [place] [address]LZHM-ZHWPANT METER 2021-01-22 17:07:00 Test Item Value Reference Range Interpretation Comments POC-GLUCOSE METER 163 mg/dL 70-110 H : TESTED A T [place] [address] (BALBIRSOY) (test code = SERAFINEL[facility] [place] [facility], 1538) [address]: Hospice/Home Health Aide/Techni mary jane ID = [id number] for [place], Marieo mas POCT-GLUCOSE [id number] 11:39:00 Test Item Value Reference Range Interpretation Comments POC-GLUCOSE METER 165 mg/dL 70-110 H : Notified RN/MD: (ALECIA) (test code = TESTED AT [place] [id number] 1538) [facility], [address]: Hospice/Home Health Aide/Techni mary jane ID = [id number] for LL OYD, TIKEYA HEMOGLOBIN [id number] 11:36:00 Test Item Value Reference Range Interpretation Comments HEMOGLOBIN A1C (BEAKER) (test code = 10.5 % 4.3-6.1 H 368) POCT-GLUCOSE [id number] 08:33:00 Test Item Value Reference Range Interpretation Comments POC-GLUCOSE METER 160 mg/dL 70-110 H : TESTED A T [facility] 6720 (BEAKER) (test code = [facility] [place], 1538) [address]: Hospice/Home Health Aide/Techni mary jane ID = [id number] for Eber Romero TSH/FREE T4 IF [id number] 05:45:00 Test Item Value Reference Range Interpretation Comments THYROID STIMULATING HORMONE 0.855 uIU/mL 0.350-4.940 (BEAKER) (test code = 772) Hospice/Home Health Aide ID - ANANDA MVITAMIN B12 AND [id number] 05:45:00 Test Item Value Reference Range Interpretation Comments VITAMIN B12 790 pg/mL 213-816 (BEAKER) (test code = 774) FOLATE (BEAKER) 13.10 ng/mL See_Comment [Automated message] (test code = 362) The system which generated this result transmitted ref erence range: >=7.00. The reference range was not used to interpr et this result as normal/abnormal . Hospice/Home Health Aide ID - ANANDA MURINALYSIS WITH MICROSCOPIC IF [id number] 05:35:00 Test Item Value Reference Range Interpretation Comments COLOR (BEAKER) (test code = 470) Yellow CLARITY (BEAKER) (test code = 469) Hazy SPECIFIC GRAVITY UA (BEAKER) (test 1.018 1.001-1.035 code = 468) PH UA (BEAKER) (test code = 467) 5.0 5.0-8.0 PROTEIN UA (BEAKER) (test code = 50 mg/dL Negative A 464) GLUCOSE UA (BEAKER) (test code = 200 mg/dL Negative A 365) KETONES UA (BEAKER) (test code = Negative Negative 371) BILIRUBIN UA (BEAKER) (test code = Negative Negative 462) BLOOD UA (BEAKER) (test code = 461) Small Negative A NITRITE UA (BEAKER) (test code = Negative Negative 465) LEUKOCYTE ESTERASE UA (BEAKER) Negative Negative (test code = 466) UROBILINOGEN UA (BEAKER) (test code 0.2 mg/dL 0.2-1.0 = 463) SOURCE(BEAKER) (test code = 2795) Hospice/Home Health Aide ID - [auto]Hospice/Home Health Aide ID - techURINALYSIS [id number] 05:35:00 Test Item Value Reference Range Interpretation Comments RBC UA (BEAKER) (test code = 519) 12 /HPF WBC UA (BEAKER) (test code = 520) 1 /HPF BACTERIA (BEAKER) (test code = Many 517) MUCUS (BEAKER) (test code = 1574) Occasional SQUAMOUS EPITHELIAL (BEAKER) (test 5 /HPF code = 516) Hospice/Home Health Aide ID - techRAPID DRUG SCREEN, [id number] 05:29:00 Test Item Value Reference Range Interpretation Comments BARBITURATE URINE (BEAKER) (test Negative Negative code = 725) BENZODIAZEPINE SCREEN URINE (BEAKER) Negative Negative (test code = 726) COCAINE (METAB.) SCREEN (BEAKER) Negative Negative (test code = 1164) METHADONE SCREEN (BEAKER) (test code Negative Negative = 1436) OPIATE SCREEN URINE (BEAKER) (test Positive Negative A code = 734) CANNABINOID SCREEN URINE (BEAKER) Negative Negative (test code = 727) AMPH/METHAMPH SCREEN (BEAKER) (test Negative Negative code = 1438) PHENCYCLIDINE SCREEN URINE (BEAKER) Negative Negative (test code = 608) PH UA (BEAKER) (test code = 467) 5.0 5.0-8.0 DRUG CUTOFF CONC.Cocaine 300 ng/mL Cannabinoid 50 ng/mLBenzodiazepine 200 ng/mLBarbiturate 200 ng/mLPhencyclidine 25 ng/mLOpiate 300 ng/mLMethadone 300 ng/mLAmphetamine/ 1000 ng/mL MethamphetamineThis assay provides an unconfirmed qualitative test result for the clinical management of patients in emergency situations. Chain of custody not maintained. Some avyj-zyt-ircxyyv medications, as well as adulterants, may cause inaccurate results. Clinical correlation should be applied. A more comprehensivedrug screen or confirmation of a detected drug may be performed upon request.Hospice/Home Health Aide ID - BSOperator ID - [auto]Hospice/Home Health Aide ID - techPROTHROMBIN TIME/[id number] 04:18:00 Test Item Value Reference Range Interpretation Comments PROTIME (BEAKER) 12.7 seconds 11.9-14.2 (test code = 759) INR (BEAKER) (test 0.98 See_Comment [Automat ed message] code = 370) The system [employer] generated this result transmitted ref erence range: <=5.90. The reference range was not used to int erpret this result as normal/abnormal . Effective 04/11/2019: PT Reference Range ChangeNew: 11.9-14.2 Previous: 11.7- 14.7RECOMMENDED COUMADIN/WARFARIN INR THERAPY RANGESSTANDARD DOSE: 2.0-3.0 Includes: PROPHYLAXIS for venous thrombosis, systemic embolization; TREATMENT for venous thrombosis and/or pulmonary embolus.HIGH RISK: Target INR is2.5-3.5 for patients wiht mechanical heart valves.BASIC METABOLIC [id number] 04:16:00 Test Item Value Reference Range Interpretation Comments SODIUM (BEAKER) 139 meq/L 136-145 (test code = 381) POTASSIUM (BEAKER) 4.0 meq/L 3.5-5.1 (test code = 379) CHLORIDE (BEAKER) 109 meq/L 98-107 H (test code = 382) CO2 (BEAKER) (test 21 meq/L 22-29 L code = 355) BLOOD UREA NITROGEN 15 mg/dL 7-21 (BEAKER) (test code = 354) CREATININE (BEAKER) 0.75 mg/dL 0.57-1.25 (test code = 358) GLUCOSE RANDOM 176 mg/dL 70-105 H (BEAKER) (test code = 652) CALCIUM (BEAKER) 8.3 mg/dL 8.4-10.2 L (test code = 697) EGFR (BEAKER) (test 86 mL/min/1.73 ESTIMA PRIYA GFR IS code = 1092) sq m NOT ACCURATE CREATININE CLEARANCE IN PREDICTING GLOMERULAR FILTRATION RATE . ESTIMATED GFR I S NOT APPLICABLE FOR DIALYSIS PATIEN TS. Hospice/Home Health Aide ID - ANANDA Mary on admission and Daily AM afterwardsOnce on admission and Daily AM [id number] 04:16:00 Test Item Value Reference Range Interpretation Comments MAGNESIUM (BEAKER) (test code = 2.1 mg/dL 1.6-2.6 627) Hospice/Home Health Aide ID - ANANDA Beckettce on admission and Daily AM afterwardsOnce on admission and Daily AM [id number] 04:16:00 Test Item Value Reference Range Interpretation Comments PHOSPHORUS (BEAKER) (test code = 3.0 mg/dL 2.3-4.7 604) Hospice/Home Health Aide ID [place] Mary on admission and Daily AM afterwardsOnce on admission and Daily AM afterwardsLIPID [id number] 04:16:00 Test Item Value Reference Range Interpretation Comments TRIGLYCERIDES (BEAKER) (test code = 152 mg/dL 540) CHOLESTEROL (BEAKER) (test code = 196 mg/dL 631) HDL CHOLESTEROL (BEAKER) (test code 46 mg/dL = 976) LDL CHOLESTEROL CALCULATED (BEAKER) 120 mg/dL (test code = 633) Triglyceride Reference Range: Low Risk <150 Borderline 150-199 High Risk 200-499 Very High Risk >=500Cholesterol Reference Range: Low Risk <200 Borderline 200-239 High Risk >240HDL Cholesterol Reference Range: Low Risk >=60 High Risk <40LDL Cholesterol Reference Range: Optimal <100 Near Optimal 100-129 Borderline 130-159 High 160-189 Very High >=190 Hospice/Home Health Aide ID - ANANDA Mary on admission and Daily AM afterwardsOnce on admission and Daily AM afterwardsCT, BRAIN, WITHOUT [id number] 04:14:00 Unlisted Reason for Exam - Click Yes and Enter Reason Below->No [facility] : 1980 Sex: FFINAL REPORT EXAM: CT head without contrast. CLINICAL HISTORY: Stroke, follow up COMPARISON: None. TECHNIQUE: CT images of the head were obtained without intravenous contrast. This exam was performed according to our departmental dose optimization program which includes automated exposure control, adjustment of the mA and/or kV according to patient's size and/or use of iterative reconstructive technique. FINDINGS:There is a 1.6 x 0.9 cm acute parenchymal hematoma in theleft posterior putamen with mild surrounding edema and mild mass effect. There are mild white mattermicrovascular ischemic changes.There is no extra-axial fluid collection, herniation, hydrocephalus or large demarcated acute territorial infarct. The basal cisterns are patent. The visualized orbits are normal. The visualized paranasal sinuses and tympanomastoid cavities are clear. The skull base and calvarium are intact. IMPRESSION: Small acute left basal ganglia parenchymal hematoma with mild maldonado rrounding edema and mild mass effect.No midline shift or hydrocephalus. Signed: Calos Castellanoseport Verified Date/Time: 01/22/2021 04:14:57 Electronically signed by: CALOS CASTELLANOS MD on01/22/2021 04:14 AMCBC W/PLT COUNT & AUTO [id number] 03:51:00 Test Item Value Reference Range Interpretation Comments WHITE BLOOD CELL COUNT (BEAKER) 10.7 K/ L 3.5-10.5 H (test code = 775) RED BLOOD CELL COUNT (BEAKER) 3.54 M/ L 3.93-5.22 L (test code = 761) HEMOGLOBIN (BEAKER) (test code = 9.5 GM/DL 11.2-15.7 L 410) HEMATOCRIT (BEAKER) (test code = 30.4 % 34.1-44.9 L 411) MEAN CORPUSCULAR VOLUME (BEAKER) 85.9 fL 79.4-94.8 (test code = 753) MEAN CORPUSCULAR HEMOGLOBIN 26.8 pg 25.6-32.2 (BEAKER) (test code = 751) MEAN CORPUSCULAR HEMOGLOBIN CONC 31.3 GM/DL 32.2-35.5 L (BEAKER) (test code = 752) RED CELL DISTRIBUTION WIDTH 13.3 % 11.7-14.4 (BEAKER) (test code = 412) PLATELET COUNT (BEAKER) (test 376 K/CU MM 150-450 code = 756) MEAN PLATELET VOLUME (BEAKER) 10.7 fL 9.4-12.3 (test code = 754) NUCLEATED RED BLOOD CELLS 0 /100 WBC 0-0 (BEAKER) (test code = 413) NEUTROPHILS RELATIVE PERCENT 52 % (BEAKER) (test code = 429) LYMPHOCYTES RELATIVE PERCENT 42 % (BEAKER) (test code = 430) MONOCYTES RELATIVE PERCENT 4 % (BEAKER) (test code = 431) EOSINOPHILS RELATIVE PERCENT 1 % (BEAKER) (test code = 432) BASOPHILS RELATIVE PERCENT 0 % (BEAKER) (test code = 437) NEUTROPHILS ABSOLUTE COUNT 5.62 K/ L 1.56-6.13 (BEAKER) (test code = 670) LYMPHOCYTES ABSOLUTE COUNT 4.48 K/ L 1.18-3.74 H (BEAKER) (test code = 414) MONOCYTES ABSOLUTE COUNT (BEAKER) 0.45 K/ L 0.24-0.36 H (test code = 415) EOSINOPHILS ABSOLUTE COUNT 0.11 K/ L 0.04-0.36 (BEAKER) (test code = 416) BASOPHILS ABSOLUTE COUNT (BEAKER) 0.04 K/ L 0.01-0.08 (test code = 417) IMMATURE GRANULOCYTES-RELATIVE 0 % 0-1 PERCENT (BEAKER) (test code = 2801) RAD, CHEST, 1 VIEW, NON [id number] 02:37:00Reason for exam:->ICHShould this be performed at the bedside?->Yes [facility] : 1980 Sex: FFINAL REPORT History: "ICH" Comparison: None. Findings: A single view of the chest is submitted. The cardiomediastinal contours are unremarkable. The lung volumes are low.There is no focal consolidation, pneumothorax, large pleural effusion or evidence of overt pulmonaryedema. There is no acute bony abnormality. Impression: No acute abnormality. Signed: Ashley Crisostomo Verified Date/Time: 01/22/2021 02:37:00 [id number] 00:07:00 Test Item Value Reference Range Interpretation Comments FIBRINOGEN LEVEL (BEAKER) (test 377 mg/dl 225-434 code = 658) [id number] 00:07:00 Test Item Value Reference Range Interpretation Comments PARTIAL THROMBOPLASTIN TIME 29.6 seconds 22.5-36.0 (BEAKER) (test code = 760) PROTHROMBIN TIME/[id number] 00:06:00 Test Item Value Reference Range Interpretation Comments PROTIME (BEAKER) 12.6 seconds 11.9-14.2 (test code = 759) INR (BEAKER) (test 0.97 See_Comment [Automat ed message] code = 370) The system [employer] generated this result transmitted ref erence range: <=5.90. The reference range was not used to int erpret this result as normal/abnormal . Effective 04/11/2019: PT Reference Range ChangeNew: 11.9-14.2 Previous: 11.7- 14.7RECOMMENDED COUMADIN/WARFARIN INR THERAPY RANGESSTANDARD DOSE: 2.0-3.0 Includes: PROPHYLAXIS for venous thrombosis, systemic embolization; TREATMENT for venous thrombosis and/or pulmonary embolus.HIGH RISK: Target INR is2.5-3.5 for patients wiht mechanical heart valves.TROPONIN [id number] 23:59:00 Test Item Value Reference Range Interpretation Comments TROPONIN I (BEAKER) (test code = 397) < ng/mL 0.00-0.03 Troponin I (TnI) levels must be interpreted in the context of the presenting symptoms and the clinical findings. Elevated TnI levels indicate myocardial damage, but are not specific for ischemic heart disease. Elevated TnI levels are seen in patients with other cardiac conditions (including myocarditis and congestive heart failure), and slight TnI elevations occur in patients with other conditions, including sepsis, renal failure, acidosis, acute neurological disease, and persistent tachyarrhythmia.Hospice/Home Health Aide ID - BSCOMPREHENSIVE METABOLIC [id number] 23:53:00 Test Item Value Reference Range Interpretation Comments TOTAL PROTEIN 6.6 gm/dL 6.0-8.3 (BEAKER) (test code = 770) ALBUMIN (BEAKER) 3.1 g/dL 3.5-5.0 L (test code = 1145) ALKALINE PHOSPHATASE 90 U/L 40-150 (BEAKER) (test code = 346) BILIRUBIN TOTAL 0.4 mg/dL 0.2-1.2 (BEAKER) (test code = 377) SODIUM (BEAKER) (test 139 meq/L 136-145 code = 381) POTASSIUM (BEAKER) 4.1 meq/L 3.5-5.1 (test code = 379) CHLORIDE (BEAKER) 109 meq/L 98-107 H (test code = 382) CO2 (BEAKER) (test 20 meq/L 22-29 L code = 355) BLOOD UREA NITROGEN 13 mg/dL 7-21 (BEAKER) (test code = 354) CREATININE (BEAKER) 0.77 mg/dL 0.57-1.25 (test code = 358) GLUCOSE RANDOM 231 mg/dL 70-105 H (BEAKER) (test code = 652) CALCIUM (BEAKER) 8.4 mg/dL 8.4-10.2 (test code = 697) AST (SGOT) (BEAKER) 15 U/L 5-34 (test code = 353) ALT (SGPT) (BEAKER) 15 U/L 6-55 (test code = 347) EGFR (BEAKER) (test 84 mL/min/1.73 ESTIMA PRIYA GFR IS code = 1092) sq m NOT ACCURATE CREATININE CLEARANCE IN PREDICTING GLOMERULAR FILTRATION RATE . ESTIMATED GFR I S NOT APPLICABLE FOR DIALYSIS PATIEN TS. Hospice/Home Health Aide ID - [id number] 23:53:00 Test Item Value Reference Range Interpretation Comments MAGNESIUM (BEAKER) (test code = 1.4 mg/dL 1.6-2.6 L 627) Hospice/Home Health Aide ID - [id number] 23:53:00 Test Item Value Reference Range Interpretation Comments PHOSPHORUS (BEAKER) (test code = 3.3 mg/dL 2.3-4.7 604) Hospice/Home Health Aide ID - BSCREATINE KINASE (CK)2021-01-21 23:53:00 Test Item Value Reference Range Interpretation Comments CREATINE KINASE TOTAL (BEAKER) (test 70 U/L 29-200 code = 380) Hospice/Home Health Aide ID - BSLACTIC ACID, [id number] 23:47:00 Test Item Value Reference Range Interpretation Comments LACTATE BLOOD VENOUS 1.67 mmol/L 0.50-2.20 Specime n slightly (2) (BEAKER) (test hemolyzed code = 2872) Hospice/Home Health Aide ID - BSCALCIUM, [id number] 23:45:00 Test Item Value Reference Range Interpretation Comments CALCIUM IONIZED (BEAKER) (test 1.16 mmol/L 1.12-1.27 code = 698) PH, BLOOD (BEAKER) (test code = 7.36 1810) CBC W/PLT COUNT & AUTO [id number] 23:36:00 Test Item Value Reference Range Interpretation Comments WHITE BLOOD CELL COUNT (BEAKER) 10.5 K/ L 3.5-10.5 (test code = 775) RED BLOOD CELL COUNT (BEAKER) 3.70 M/ L 3.93-5.22 L (test code = 761) HEMOGLOBIN (BEAKER) (test code = 10.0 GM/DL 11.2-15.7 L 410) HEMATOCRIT (BEAKER) (test code = 31.6 % 34.1-44.9 L 411) MEAN CORPUSCULAR VOLUME (BEAKER) 85.4 fL 79.4-94.8 (test code = 753) MEAN CORPUSCULAR HEMOGLOBIN 27.0 pg 25.6-32.2 (BEAKER) (test code = 751) MEAN CORPUSCULAR HEMOGLOBIN CONC 31.6 GM/DL 32.2-35.5 L (BEAKER) (test code = 752) RED CELL DISTRIBUTION WIDTH 13.3 % 11.7-14.4 (BEAKER) (test code = 412) PLATELET COUNT (BEAKER) (test 376 K/CU MM 150-450 code = 756) MEAN PLATELET VOLUME (BEAKER) 10.6 fL 9.4-12.3 (test code = 754) NUCLEATED RED BLOOD CELLS 0 /100 WBC 0-0 (BEAKER) (test code = 413) NEUTROPHILS RELATIVE PERCENT 62 % (BEAKER) (test code = 429) LYMPHOCYTES RELATIVE PERCENT 32 % (BEAKER) (test code = 430) MONOCYTES RELATIVE PERCENT 4 % (BEAKER) (test code = 431) EOSINOPHILS RELATIVE PERCENT 1 % (BEAKER) (test code = 432) BASOPHILS RELATIVE PERCENT 0 % (BEAKER) (test code = 437) NEUTROPHILS ABSOLUTE COUNT 6.55 K/ L 1.56-6.13 H (BEAKER) (test code = 670) LYMPHOCYTES ABSOLUTE COUNT 3.34 K/ L 1.18-3.74 (BEAKER) (test code = 414) MONOCYTES ABSOLUTE COUNT (BEAKER) 0.41 K/ L 0.24-0.36 H (test code = 415) EOSINOPHILS ABSOLUTE COUNT 0.09 K/ L 0.04-0.36 (BEAKER) (test code = 416) BASOPHILS ABSOLUTE COUNT (BEAKER) 0.04 K/ L 0.01-0.08 (test code = 417) IMMATURE GRANULOCYTES-RELATIVE 1 % 0-1 PERCENT (BEAKER) (test code = 2801) XR FOOT 3+ VW [id number] 21:29:11 No focal abnormality of the left foot. RL: [phone] Patient name: WANDA WANGTRACEEOB: 1980 40 years EXAMINATION: XR FOOT 3+ VW LEFT Ordering Physician: STEPHANIE MIXON CLINICAL HISTORY:pain COMPARISON:None TECHNIQUE:Frontal, oblique, and lateral views of the left foot performed FINDINGS:No fracture or dislocation is identified. Lisfranc's joint is aligned. Noosseous lesions or joint space narrowing. Soft tissues are intact. [facility], Radiant Results Inft User - 11/20/2020 3:30 PM CSTPatient name: WANDA GIVENSOB: 1980 40 years EXAMINATION: XR FOOT 3+ VW LEFTOrdering Physician: STEPHANIE MIXON CLINICAL HISTORY:pain COM PARISON:NoneTECHNIQUE:Frontal, oblique, and lateral views of the left foot performedFINDINGS:No fracture or dislocation is identified. Lisfranc's joint is aligned. Noosseous lesions or joint space narrowing. Soft tissues are intact.IMPRESSIONNo focal abnormality of the left foot.RL: 7000 [facility]XR [facility]+ VW [id number] 21:28:08 No focal abnormality of the left hand. RL: 7000 Patient name: WANDA MARTINEZ: 1980 40 years EXAMINATION: XR HAND 3+ VW LEFT Ordering Physician: STEPHANIE MIXON CLINICAL HISTORY:Left hand pain COMPARISON:None TECHNIQUE:Frontal, oblique, and lateral views of left hand performed FINDINGS:Normal bone mineralization. No fractureor dislocation is identified. Noosseous lesions are seen. No joint space narrowing or erosions. Softtissues are intact. [facility], Radiant Results Inft User - 11/20/2020 3:29 PM CSTPatient name: WANDA MARTINEZ: 1980 40 years EXAMINATION: XR HAND 3+ VW LEFTOrdering Physician: STEPHANIE MIXONCLINICAL HISTORY:Left hand painCOMPARISON:NoneTECHNIQUE:Frontal, oblique, and lateral views of left hand performedFINDINGS:Normal bone mineralization. No fracture or dislocation is identified. Noosseous lesions are seen. No joint space narrowing or erosions. Softtissues are intact.IMPRESSIONNo focal abnormality of the left hand.RL: 7000 [facility] [id number] 21:58:00 Test Item Value Reference Range Interpretation Comments B-TYPE NATRIURETIC PEPTIDE (test 63.3 PG/ML 0-100 N code = BNP) PROTHROMBIN [id number] 21:51:00 Test Item Value Reference Interpretation Comments [...] heart valves. LAB ANTICOAGULANT QUERY NOTHROMBOPLASTIN TIME [id number] 21:51:00 Test Item Value Reference Range Interpretation Comments THROMBOPLASTIN TIME PARTIAL 31.0 seconds 22.8-34.4 N (test code = PTT) LAB ANTICOAGULANT QUERY NOD-DIMER [id number] 21:51:00 Test Item Value Reference Range Interpretation [...] otherfindin gs. LAB ANTICOAGULANT QUERY NOBASIC METABOLIC [id number] 21:50:00 Test Item Value Reference Range Interpretation [...] code = 8.3 mg/dL 8.5-10.1 L CA) [id number] 21:50:00 Test Item Value Reference Range Interpretation Comments TROPONIN-I (test <0.015 ng/ml 0.00-0.045 N GUIDELINES: 0.08 - 0.09 code = TROPI) Indeterminate0 .10 Risk Stratifica tion Limit: Suggest sequential te sting0.60 - 1.50 AMI cut off: Myocardial Inju ry by WHO criteria CBC W/AUTO [id number] 21:49:00 Test Item Value Reference Range Interpretation [...] 0.00 K/mm3 0.0-0.1 N NRBC#) BASIC METABOLIC [id number] 21:45:00 Test Item Value Reference Range Interpretation [...] code = 8.3 mg/dL 8.5-10.1 L CA) [id number] 21:45:00 Test Item Value Reference Range Interpretation Comments TROPONIN-I (test code = TROPI) ng/ml 0.00-0.045 - XR CHEST 1 [id number] 21:45:00 [facility] Name: WANDA CISSE [address] [facility] Phys: Saman Brown [place], [place] [address] : 1980 Age: 39 Sex: F Acct: [id number] Loc: RENAE PHONE #: [phone] Exam Date: 06/15/2020 Status: REG ER FAX #: [phone] Radiology No: Unit No: [id number] Reason: acc htn, rales, hypoxia EXAMS: CPT CODE: [id number] XR CHEST 1 V 59128 Fluoro Time: DAP (Gy m2): Air Kerma [...] Chacon, RT (R) Transcribed Date/Time: 06/15/2020 (2144) [email or web address] Orig Print D/T: S: 0 06/15/2020 (2147) PAGE 1 Signed ReportBASIC METABOLIC [id number] 21:42:00 Test Item Value Reference Range Interpretation [...] code = CA) 8.3 mg/dL 8.5-10.1 L [id number] 21:42:00 Test Item Value Reference Range Interpretation Comments TROPONIN-I (test code = TROPI) ng/ml 0.00-0.045 BASIC METABOLIC [id number] 21:41:00 Test Item Value Reference Range Interpretation [...] code = CA) 8.3 mg/dL 8.5-10.1 L [id number] 21:41:00 Test Item Value Reference Range Interpretation Comments TROPONIN-I (test code = TROPI) ng/ml 0.00-0.045 BASIC METABOLIC [id number] 21:40:00 Test Item Value Reference Range Interpretation [...] CALCIUM (test code = CA) mg/dL 8.5-10.1 [id number] 21:40:00 Test Item Value Reference Range Interpretation Comments TROPONIN-I (test code = TROPI) ng/ml 0.00-0.045 PROTHROMBIN [id number] 13:49:00 Test Item Value Reference Interpretation Comments Range PROTHROMBIN TIME 10.5 SECONDS 8.7-12.1 N THERAPEUTIC LEVEL: 1.5 TO PATIENT (test code 1.9 TIMES NORMAL RANGE = PTP) INTERNATIONAL 1.0 Recommended Th erapeutic NORMAL RATIO (test PT Ratios For Oral code = INR) [facility]. CONDITION INT'L N ORMALIZED PT RATIO------- --- Prophylaxis of venous thrombosis 2.0 - 3.0in [facility] medical or surgicalpati ents, treatment of venousthrombosi s, prevention of e mbolism. Prevention of r ecurrent embolism, 2.5 - 3.5or treatment of patients with mechanicalprost hetic heart valves. THROMBOPLASTIN TIME [id number] 13:49:00 Test Item Value Reference Range Interpretation Comments THROMBOPLASTIN TIME PARTIAL 35.2 seconds 22.8-34.4 H (test code = PTT) BASIC METABOLIC [id number] 13:35:00 Test Item Value Reference Range Interpretation [...] = 8.6 mg/dL 8.5-10.1 N CA) LIVER [id number] 13:35:00 Test Item Value Reference Range Interpretation [...] 88 U/L 50-136 N code = ALKP) [id number] 13:35:00 Test Item Value Reference Range Interpretation Comments TROPONIN-I (test <0.015 ng/ml 0.00-0.045 N GUIDELINES: 0.08 - 0.09 code = TROPI) Indeterminate0 .10 Risk Stratifica tion Limit: Suggest sequential te sting0.60 - 1.50 AMI cut off: Myocardial Inju ry by WHO criteria BASIC METABOLIC [id number] 13:33:00 Test Item Value Reference Range Interpretation [...] = 8.6 mg/dL 8.5-10.1 N CA) LIVER [id number] 13:33:00 Test Item Value Reference Range Interpretation [...] 88 U/L 50-136 N code = ALKP) [id number] 13:33:00 Test Item Value Reference Range Interpretation Comments TROPONIN-I (test code = TROPI) ng/ml 0.00-0.045 - XR CHEST 1 [id number] 13:33:00 [facility] Name: WANDA CISSE [address] Phys: Cal Henning Jr, [place] [address] : 1980 Age: 39 Sex: F Acct: [id number] Loc: RENAE PHONE #: [phone] Exam Date: 06/14/2020 Status: REG ER FAX #: [phone] Radiology No: Unit No: [id number] Reason: Code sepsis EXAMS: CPT CODE: [id number] XR CHEST 1 V 06904 Fluoro Time: DAP (Gy m2): Air Kerma [...] signed by: JOHN CONN M.D.CC: Technologist: Rox Ramos RT (R) Transcribed Date/Time: 06/14/2020 (0646) [id number] Orig Print D/T: S: 06/14/2020 (9382) PAGE 1 Signed ReportBASIC METABOLIC [id number] 13:32:00 Test Item Value Reference Range Interpretation [...] REPORT ED RESULT BY12.04. CREATININE (test code 1.10 mg/dL 0.51-0.95 H = CREAT) CALCIUM (test code = 8.6 mg/dL 8.5-10.1 N CA) LIVER [id number] 13:32:00 Test Item Value Reference Range Interpretation [...] TOTAL (test U/L 50-136 code = ALKP) [id number] 13:32:00 Test Item Value Reference Range Interpretation Comments TROPONIN-I (test code = TROPI) ng/ml 0.00-0.045 BASIC METABOLIC [id number] 13:30:00 Test Item Value Reference Range Interpretation [...] REPORT ED RESULT BY12.04. CREATININE (test code 1.10 mg/dL 0.51-0.95 H = CREAT) CALCIUM (test code = 8.6 mg/dL 8.5-10.1 N CA) LIVER [id number] 13:30:00 Test Item Value Reference Range Interpretation [...] TOTAL (test U/L 50-136 code = ALKP) [id number] 13:30:00 Test Item Value Reference Range Interpretation Comments TROPONIN-I (test code = TROPI) ng/ml 0.00-0.045 BASIC METABOLIC [id number] 13:27:00 Test Item Value Reference Range Interpretation [...] = CA) 8.6 mg/dL 8.5-10.1 N LIVER [id number] 13:27:00 Test Item Value Reference Range Interpretation [...] TOTAL (test U/L 50-136 code = ALKP) [id number] 13:27:00 Test Item Value Reference Range Interpretation Comments TROPONIN-I (test code = TROPI) ng/ml 0.00-0.045 BASIC METABOLIC [id number] 13:25:00 Test Item Value Reference Range Interpretation [...] (test code = CA) mg/dL 8.5-10.1 LIVER [id number] 13:25:00 Test Item Value Reference Range Interpretation Comments TOTAL PROTEIN (test code = PROT) g/dl 6.4-8.2 ALBUMIN (test code = ALB) g/dl 3.4-5.0 BILIRUBIN TOTAL (test code = BILT) mg/dl 0.2-1.0 BILIRUBIN DIRECT (test code = BILD) mg/dl 0.0-0.4 SGOT/AST (test code = AST) U/L 15-37 SGPT/ALT (test code = ALT) U/L 12-78 ALKALINE PHOSPHATASE TOTAL (test code U/L 50-136 = ALKP) [id number] 13:25:00 Test Item Value Reference Range Interpretation Comments TROPONIN-I (test code = TROPI) ng/ml 0.00-0.045 CBC W/AUTO [id number] 13:20:00 Test Item Value Reference Range Interpretation [...] = 0.00 K/mm3 0.0-0.1 N NRBC#) LACTIC [id number] 13:15:00 Test Item Value Reference Range Interpretation Comments LACTIC ACID (test code = LACT) 1.5 mmol/l 0.4-2.0 N
--- NOTE | 2021-10-05 13:08 | RAD REPORT ---
EXAM DESCRIPTION: CT - Ct Stroke Brain Wo Cont - 10/05/2021 12:59 pm CLINICAL HISTORY: left sided weakness/dizziness Headache, drowsiness, CVA symptomology COMPARISON: Head Brain Wo Cont dated 01/21/2021; HEAD BRAIN W O CONTRAST dated 08/23/2013 TECHNIQUE: All CT scans are performed using dose optimization technique as appropriate and may inclu de automated exposure control or mA/KV adjustment according to patient size. FINDINGS: No intracranial hemorrhage, hydrocephalus or extra-axial fluid collection.No areas of brai n edema or evidence of midline shift. The paranasal sinuses and mastoids are clear. The calvarium is intact. IMPRESSION: No acute intracranial abnormality. The findings were discussed with Elin in the ER On 10/05/2021 at 1:03 p.m. by telephone.
[2021-10-05 13:25] LABS: Basophils % 0.9 % (0-1.3); Hematocrit 35.1 % (36.0-45.0); Lymphocytes % 44.1 % (15.3-44.8); MPV 8.9 fL (7.6-11.3); RBC Red Blood Cell Count 4.36 M/uL (3.86-4.86)
--- NOTE | 2021-10-05 13:29 | RAD REPORT ---
EXAM DESCRIPTION: [place] Single View10/05/2021 1:20 pm CLINICAL HISTORY: Left-sided weakness COMPARISON: November 2020 FINDINGS: The lungs appear clear of acute infiltrate. The heart is normal size IMPRESSION: No acute abnormalities displayed
[2021-10-05 13:37] LABS: Potassium 3.6 mmol/L (3.5-5.1)
[2021-10-05] MEDS ORDERED: lisinopriL 20 MG TAB ONE (14:13)
[2021-10-05 14:17] LABS: Protime INR 0.95
--- NOTE | 2021-10-05 15:29 | RAD REPORT ---
EXAM DESCRIPTION: MRI - Brain W/Wo Cont - 10/05/2021 3:13 pm CLINICAL HISTORY: Left-sided weakness COMPARISON: head CT October 05, 2021 TECHNIQUE: Axial, sagittal, and coronal magnetic images of the brain were obtained. 20 cc MultiHance administered intravenously FINDINGS: Mild signal within periventricular, deep and subcortical white matter probably ischemic ch anges secondary to small vessel disease The ventricles are normal in caliber. Diffusion-weighted/ ADC mapping sequences demonstrate a 6 millimeter area of abnormal signal within t he right thalamus consistent with an acute infarction. 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 No abnormal enhancement within the brain is seen. An extra-axial fluid collection is not noted. Fluid within the sinuses/mastoids is not seen IMPRESSION: 6 millimeter acute infarction right thalamus
--- NOTE | 2021-10-05 15:31 | RAD REPORT ---
EXAM DESCRIPTION: MRI - MRA Neck W/Wo Cont - 10/05/2021 3:14 pm CLINICAL HISTORY: Left-sided weakness COMPARISON: None. TECHNIQUE: Magnetic resonance angiogram of the neck was performed. 20 cc MultiHance was administered intravenously. 3D MIPS reconstruction performed FINDINGS: Mild plaque is present within the common carotid, internal carotid and external carotid ar teries bilaterally. No significant stenosis is visualized. The vertebral arteries are codominant without visualization of an abnormality. IMPRESSION: Mild plaque within the carotid arteries NASCET criteria used. Mild 0-49% stenosis Moderate 50-69% stenosis Severe 70-99% stenosis
--- NOTE | 2021-10-05 15:36 | RAD REPORT ---
EXAM DESCRIPTION: MRI - MRA Head Wo Cont - 10/05/2021 3:13 pm CLINICAL HISTORY: Left-sided weakness COMPARISON: None. TECHNIQUE: Magnetic resonance angiogram was performed. 3D MIPS reconstruction performed FINDINGS: The A1 segment of the left anterior cerebral artery is hypoplastic. origin left posterior cerebral artery. Scattered areas of narrowing involve the middle and posterior cerebral arteries bilaterally. Thrombus is not visualized within the arteries. The basilar, internal carotid and anterior cerebral arteries appear unremarkable. An aneurysm is not displayed. IMPRESSION: Scattered areas of narrowing involving the middle and posterior cerebral arteries bilate rally. I suspect these are chronic findings
[2021-10-05] MEDS ORDERED: ASPIRIN EC 81 MG TAB PO ONE (16:23)
--- NOTE | 2021-10-05 16:35 | EDPHYS ---
Physician Documentation [facility] Name: Aida Yan Age: 41 yrs Sex: Female : 1980 Arrival Date: 10/05/2021 Time: 11:23 Bed 30 Private MD: ED Physician Rod Camejo HPI: 10/05 16:37 This 41 yrs old Female presents to ER via Wheelchair with complaints of kdr Headache. 16:37 Patient woke this morning around 7 AM and felt that her left side was weak. She also kdr felt she had a headache. She had no other associated signs or symptoms. Last known well was about 10 PM last evening. Onset: The symptoms/episode began/occurred suddenly, this morning. Severity of symptoms: At their worst the symptoms were mild just prior to arrival, in the emergency department the symptoms are unchanged. The patient has experienced similar episodes in the past. The patient has not recently seen a physician. [employer]PER[employer]OR [employer]: 13:15 LMP 09/16/2021 2 Historical: - Allergies: 12:43 No Known Allergies; aa5 - PMHx: 12:43 Diabetes - NIDDM; Hypertension; aa5 12:47 CVA; aa5 12:48 Left basal ganglia hemorrhage; aa5 - PSHx: 12:43 section; aa5 - Immunization history:: Adult Immunizations up to date, Client reports receiving the 2nd dose of the Covid vaccine. - Social history:: Smoking status: Patient/guardian denies using alcohol, street drugs, IV drugs, caffeine, over the counter diet medications, tobacco products. - Code Status:: Full code. ROS: 16:37 Constitutional: Negative for fever, chills, and weight loss, Eyes: Negative for injury, kdr pain, redness, and discharge, ENT: Negative for injury, pain, and discharge, Neck: Negative for injury, pain, and swelling, Cardiovascular: Negative for chest pain, palpitations, and edema, Respiratory: Negative for shortness of breath, cough, wheezing, and pleuritic chest pain, Abdomen/GI: Negative for abdominal pain, nausea, vomiting, diarrhea, and constipation, Back: Negative for injury and pain, : Negative for injury, bleeding, discharge, and swelling, MS/Extremity: Negative for injury and deformity, Skin: Negative for injury, rash, and discoloration, Psych: Negative for depression, anxiety, suicide ideation, homicidal ideation, and hallucinations, Allergy/Immunology: Negative for hives, rash, and allergies, Endocrine: Negative for neck swelling, polydipsia, polyuria, polyphagia, and marked weight changes, Hematologic/Lymphatic: Negative for swollen nodes, abnormal bleeding, and unusual bruising. 16:37 MS/extremity: Positive for Weakness to the left side with loss of strength in leg being greater than arm. Exam: 16:37 Constitutional: This is a well developed, well nourished patient who is awake, alert, kdr and in no acute distress. Head/Face: Normocephalic, atraumatic. Eyes: Pupils equal round and reactive to light, extra-ocular motions intact. Lids and lashes normal. Conjunctiva and sclera are non-icteric and not injected. Cornea within normal limits. Periorbital areas with no swelling, redness, or edema. Neck: Trachea midline, no thyromegaly or masses palpated, and no cervical lymphadenopathy. Supple, full range of motion without nuchal rigidity, or vertebral point tenderness. No Meningismus. Chest/axilla: Normal chest wall appearance and motion. Nontender with no deformity. No lesions are appreciated. Cardiovascular: Regular rate and rhythm with a normal S1 and S2. No gallops, murmurs, or rubs. Normal PMI, no JVD. No pulse deficits. Respiratory: Lungs have equal breath sounds bilaterally, clear to auscultation and percussion. No rales, rhonchi or wheezes noted. No increased work of breathing, no retractions or nasal flaring. Abdomen/GI: Soft, non-tender, with normal bowel sounds. No distension or tympany. No guarding or rebound. No evidence of tenderness throughout. Back: No spinal tenderness. No costovertebral tenderness. Full range of motion. Skin: Warm, dry with normal turgor. Normal color with no rashes, no lesions, and no evidence of cellulitis. MS/ Extremity: Pulses equal, no cyanosis. Neurovascular intact. Full, normal range of motion. Psych: Awake, alert, with orientation to person, place and time. Behavior, mood, and affect are within normal limits. 16:37 Neuro: Cranial nerves: Motor: strength is 5/5 in the right leg, strength is 4/5 in the left arm and left leg, Sensation: is normal, Gait: is unsteady. Vital Signs: 12:44 BP 228 / 104; Pulse 82; Resp 18 S; Temp 97.7(TE); Pulse Ox 100% on R/A; Weight 81.65 kg aa5 (R); Height 5 ft. 2 in. (157.48 cm) (R); 13:35 BP 211 / 93; Pulse 80; Resp 18; Temp 97.9; Pulse Ox 100% ; iw 16:00 BP 187 / 88; Pulse 77; Resp 18; Temp 98.0; Pulse Ox 100% on R/A; sl2 16:29 BP 187 / 88; Pulse 77; Resp 16; Pulse Ox 99% on R/A; iw 16:30 BP 164 / 88; Pulse 72; Resp 18; Pulse Ox 100% on R/A; sl2 17:11 BP 181 / 88; Pulse 71; Resp 18; Pulse Ox 100% on R/A; sl2 17:30 BP 162 / 81; Pulse 74; Resp 16; Temp 98.2; Pulse Ox 99% ; sl2 18:00 BP 148 / 84; Pulse 71; Resp 18; Pulse Ox 100% on R/A; sl2 18:30 BP 179 / 77; Pulse 74; Resp 16; Pulse Ox 100% on R/A; sl2 19:30 BP 162 / 82; Pulse 71; Resp 20 S; Temp 98.8(O); Pulse Ox 99% on R/A; bb 20:30 BP 141 / 82; Pulse 72; Resp 18 S; Pulse Ox 100% on R/A; bb 21:00 BP 122 / 88; Pulse 136; Resp 20; Pulse Ox 96% on R/A; bb 21:30 BP 120 / 75; Pulse 119; Resp 18 S; Temp 98.2(O); Pulse Ox 96% on R/A; bb 22:30 BP 150 / 85; Pulse 72; Resp 18 S; Pulse Ox 98% on R/A; bb 23:00 BP 139 / 82; Pulse 66; Resp 18 S; Pulse Ox 98% on R/A; bb 23:00 Temp 98.3(O); bb 12:44 Body Mass Index 32.92 (81.65 kg, 157.48 cm) aa5 NIH Stroke Scale Scores: 13:30 NIHSS Score: 4 iw MDM: 16:34 Patient medically screened. kdr 16:37 Data reviewed: vital signs, nurses notes, lab test result(s), radiologic studies. kdr Counseling: I had a detailed discussion with the patient and/or guardian regarding: the historical points, exam findings, and any diagnostic results supporting the discharge/admit diagnosis, lab results, radiology results, the need for further work-up and treatment in the hospital. Physician consultation: Alcides Najera MD regarding admission, consult, patient's condition, and will see patient in inpatient room, tomorrow. 10/05 12:55 Order name: Basic Metabolic Panel; Complete Time: 14:14 [facility] 10/05 12:55 Order name: CBC with Diff; Complete Time: 14:14 [facility] 10/05 12:55 Order name: Protime (+inr); Complete Time: 16:08 [facility] 10/05 12:55 Order name: Ptt, Activated; Complete Time: 16:08 [facility] 10/05 13:31 Order name: Glucose, Ancillary Testing; Complete Time: 14:14 [facility] 10/05 16:36 Order name: SARS-COV-2 RT PCR (Document "Date of Onset" if Symptomatic) 10/06 07:25 Order name: CBC with Automated Diff [facility] 10/06 07:26 Order name: Vitamin D, 25 (OH), TOTAL [facility] 10/06 07:26 Order name: Comprehensive Metabolic Panel [facility] 10/06 07:26 Order name: Creatine Phosphokinase [facility] 10/06 07:26 Order name: CKMB Creatine Kinase MB [facility] 10/06 07:26 Order name: Troponin I [facility] 10/06 07:26 Order name: Lipid Profile [facility] 10/06 07:26 Order name: Magnesium [facility] 10/05 12:45 Order name: CT Stroke Brain w/o Contrast; Complete Time: 14:14 [facility] 10/05 12:55 Order name: Stroke CXR 1 View; Complete Time: 14:14 [facility] 10/05 12:55 Order name: EKG; Complete Time: 12:56 [facility] 10/05 12:55 Order name: Accucheck; Complete Time: 14:04 [facility] 10/05 12:55 Order name: Cardiac monitoring; Complete Time: 14:04 [facility] 10/05 13:50 Order name: MRA Head Wo Cont; Complete Time: 16:08 [facility] 10/05 13:51 Order name: Brain W/Wo Cont; Complete Time: 16:08 [facility] 10/05 13:51 Order name: MRA Neck W/Wo Cont; Complete Time: 16:08 [facility] 10/06 07:26 Order name: Thyroid Stimulating Hormone [facility] 10/06 07:26 Order name: Miscellaneous Test Lab [facility] 10/06 07:54 Order name: Glucose, Ancillary Testing [facility] 10/05 12:55 Order name: EKG - Nurse/Tech; Complete Time: 14:04 kdr 10/05 12:55 Order name: IV Saline Lock; Complete Time: 14:04 kdr 10/05 12:55 Order name: Labs collected and sent; Complete Time: 14:04 kdr 10/05 12:55 Order name: NPO; Complete Time: 14:04 kdr 10/05 12:55 Order name: O2 Per Protocol; Complete Time: 14:04 kdr 10/05 12:55 Order name: O2 Sat Monitoring; Complete Time: 14:04 kdr 10/05 12:55 Order name: Stroke Swallow Screen; Complete Time: 14:04 kdr Administered Medications: 14:14 Drug: Lisinopril 20 mg Route: PO; iw 16:27 Follow up: Response: Marked relief of symptoms sl2 16:20 Drug: Aspirin Chewable Tablet 324 mg Route: PO; sl2 17:00 Drug: Lopressor (metoprolol) 5 mg Route: IVP; Site: left antecubital; sl2 18:56 Follow up: Response: No adverse reaction sl2 21:26 Drug: Tylenol 1000 mg Route: PO; bb Point of Care Testing: Blood Glucose: 21:37 Blood Glucose: 240 mg/dL; bb Ranges: Critical Glucose Levels:Adult <50 mg/dl or >400 mg/dl <40 mg/dl or >180 mg/dl Disposition Summary: 10/05/21 16:34 Hospitalization Ordered Hospitalization Status: Inpatient Admission kdr Provider: Surya Anglin Condition: Fair kdr Problem: new kdr Symptoms: have improved kdr Bed/Room Type: Standard kdr Location: Telemetry/MedSurg (Inpatient)(10/06/21 07:31) bd Room Assignment: 404(10/06/21 07:31) bd Diagnosis - 6 mm right thalamic infarct, left-sided weakness kdr Forms: - Medication Reconciliation Form kdr - SBAR form kdr NIH Stroke Scale - NIH Stroke Score Date: 10/05/2021 Time: 13:30 Total Score = 4 1a. Level of Consciousness (LOC) - 0(Alert) 1b. Level of Consciousness (LOC) (Month \\T\\ Age) - 0(Both) 1c. LOC Commands (Open \\T\\ Closes Eyes/Floor Work[employer] [place]) - 0(Both) 2. Best Gaze (Lateral Gaze Paresis) - 0(Normal) 3. Visual Field Loss - 0(No visual loss) 4. Facial Palsy - 2(Partial paralysis) 5a. Left Arm: Motor (10-second hold) - 1(Drift) 5b. Right Arm: Motor (10-second hold) - 0(No drift) 6a. Left Leg: Motor (5-second hold - always test supine) - 1(Drift) 6b. Right Leg: Motor (5-second hold - always test supine) - 0(No drift) 7. Limb Ataxia (finger/nose \\T\\ heel/chakraborty - test with eyes open) - 0(Absent) 8. Sensory Loss (pinprick arms/legs/face) - 0(Normal) 9. Best Language: Aphasia (description/naming/reading) - 0(No aphasia) 10. Dysarthria (speech clarity - read or repeat words) - 0(Normal) 11. Extinction and Inattention (visual/tactile/auditory/spatial/personal) - 0(No abnormality) Initials: iw Signatures: Dispatcher [employer] EDMS Rama Solano Martha RN AQUILINO Rod Camejo MD MD kdr Ballard, Brenda, RN RN bb Williams, Irene, RN RN Yessy Groves RN RN aa5 Neva Latham RN RN sl2 Corrections: (The following items were deleted from the chart) 13:50 13:31 MR STROKE PROTOCOL+MRI.RAD.BRZ ordered. EDMS EDMS 20:34 16:34 Telemetry/MedSurg (Inpatient) [facility] 20:34 16:34 kdr 10/06 07:31 10/05 20:34 BR ER HOLD [facility] 10/06 07:31 10/05 20:34 ERHOLD- [facility]
--- NOTE | 2021-10-05 16:35 | ER ---
Nurse's Notes [facility] Name: Aida Yan Age: 41 yrs Sex: Female : 1980 Arrival Date: 10/05/2021 Time: 11:23 Bed 30 Private MD: Diagnosis: 6 mm right thalamic infarct, left-sided weakness Presentation: 10/05 12:44 Chief complaint: Patient states: "I woke up really around 7 am dizzy and with a really aa5 bad headache". Pt also c/o left arm weakness and left leg weakness. Pt states "when I am walking I feel like I go to my left side". Last normal was 10/04/21 at 10pm. 12:44 Acuity: VINICIO 2 aa5 12:44 Coronavirus screen: At this time, the client does not indicate any symptoms associated aa5 with coronavirus-19. Ebola Screen: No symptoms or risks identified at this time. Initial Sepsis Screen: Does the patient meet any 2 criteria? No. Patient's initial sepsis screen is negative. Does the patient have a suspected source of infection? No. Patient's initial sepsis screen is negative. Risk Assessment: Do you want to hurt yourself or someone else? Patient reports no desire to harm self or others. Onset of symptoms was October 05, 2021. 12:44 Method Of Arrival: Wheelchair aa5 Triage Assessment: 13:15 Headache History: The patient has had previous headaches and this one is similar to sl2 previous episodes. General: Appears. 13:15 General: Appears well developed, Behavior is calm, cooperative, appropriate for age. sl2 Pain: Denies pain. Complains of pain in left leg and right leg and left arm Also complains of. 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 - Social history:: Smoking status: Patient/guardian denies using alcohol, street drugs, IV drugs, caffeine, over the counter diet medications, tobacco products. - Code Status:: Full code. Screenin:51 Abuse screen: Denies threats or abuse. Denies injuries from another. Nutritional iw screening: No deficits noted. Tuberculosis screening: No symptoms or risk factors identified. Never had TB. Possible symptoms: None Risk factors: None. Fall Risk No fall in past 12 months (0 pts). Secondary diagnosis (15 points) CVA, No IV (0 pts). Ambulatory Aid- Crutches/Cane/Walker (15 pts). Gait- Impaired (20 pts.). Mental Status- Oriented to own ability (0 pts). Total Thompson Fall Scale indicates High Risk Score (45 or more points). Fall prevention measures have been instituted. Side Rails Up X 2 Placed Close to Nursing Station Frequent Obs/Assessments Occuring. 13:30 VAN Screening: Arm Drift: Minor drift. Visual Disturbance: No visual disturbance noted. iw Aphasia: No aphasia noted. Neglect: No neglect noted. Patient has been NPO before screening. The patient is alert, able to follow commands. The patient does not exhibit slurred or garbled speech The patient is not exhibiting difficulty speaking. The patient does not exhibit difficulty understanding words. The patient is able to swallow own secretions with no drooling or need for suction. Patient tolerated one teaspoon of water. No drooling, immediate coughing, gurgling, or clearing of the throat was noted. The patient tolerated 90mL of water. No drooling, immediate coughing, gurgling, or clearing of the throat was noted. The patient passed the bedside swallow screening. Oral medications may be given as ordered. Contact Physician for further diet orders. Provider notified of bedside swallow screening results: Rod Camejo MD. Assessment: 12:51 Neuro: Level of Consciousness is awake, alert, obeys commands, lethargic, Oriented to iw person, place, time, situation, Appropriate for age Script Developer are weak on left Moves all extremities. Weakness in left arm(s) leg(s) Gait is unsteady, Speech is normal, Facial droop on left, Pupils are PERRLA, Numbness in left arm Reports headache occipital area, numbness weakness Denies blurred vision difficulty swallowing. 12:51 Pain: Complains of pain in head - occipital Pain does not radiate. Pain currently is 8 iw out of 10 on a pain scale. Quality of pain is described as aching, pressure, sharp, Pain began gradually, this am 07:30 Is continuous, Alleviated by nothing. Cardiovascular: No deficits noted. Rhythm is sinus rhythm. Respiratory: No deficits noted. Airway is patent Trachea midline Respiratory effort is even, unlabored, Respiratory pattern is regular, symmetrical. GI: No deficits noted. No signs and/or symptoms were reported involving the gastrointestinal system. : No deficits noted. No signs and/or symptoms were reported regarding the genitourinary system. EENT: No deficits noted. No signs and/or symptoms were reported regarding the EENT system. Derm: No deficits noted. No signs and/or symptoms reported regarding the dermatologic system. Musculoskeletal: unsteady gait. 13:04 Reassessment: Patient AAO X 3, presents to ED via triage with c/o occipital headache iw and weakness to left upper and lower extremities as well as left arm numbness. Patient states she went to bed at approximately 10pm last night 10/04/2021 and woke up approximately 07:00 hrs today 10/05/2021. Patient states was asymptomatic at bedtime and woke up with symptoms this am. Patient has unsteady gait, alert X 3, follows commands and communicates effectively. 19:30 General: Appears uncomfortable, Behavior is calm, cooperative. Pain: Complains of pain bb in head Pain does not radiate. Pain currently is 9 out of 10 on a pain scale. Quality of pain is described as aching, sharp, Pain began suddenly, gradually, \\T\\ 0600 today with vertigo. Is continuous, Alleviated by nothing. Aggravated by. Neuro: Level of Consciousness is awake, alert, obeys commands, Oriented to person, place, time, situation, Reports dizziness, headache occipital area, numbness in left arm and left leg weakness in left arm and left leg. Cardiovascular: Rhythm is sinus rhythm. 19:30 Respiratory: No deficits noted. Airway is patent Respiratory effort is even, unlabored, bb Respiratory pattern is regular, symmetrical. GI: No deficits noted. No signs and/or symptoms were reported involving the gastrointestinal system. Vital Signs: 12:44 BP 228 / 104; Pulse 82; Resp 18 S; Temp 97.7(TE); Pulse Ox 100% on R/A; Weight 81.65 kg aa5 (R); Height 5 ft. 2 in. (157.48 cm) (R); 13:35 BP 211 / 93; Pulse 80; Resp 18; Temp 97.9; Pulse Ox 100% ; iw 16:00 BP 187 / 88; Pulse 77; Resp 18; Temp 98.0; Pulse Ox 100% on R/A; sl2 16:29 BP 187 / 88; Pulse 77; Resp 16; Pulse Ox 99% on R/A; iw 16:30 BP 164 / 88; Pulse 72; Resp 18; Pulse Ox 100% on R/A; sl2 17:11 BP 181 / 88; Pulse 71; Resp 18; Pulse Ox 100% on R/A; sl2 17:30 BP 162 / 81; Pulse 74; Resp 16; Temp 98.2; Pulse Ox 99% ; sl2 18:00 BP 148 / 84; Pulse 71; Resp 18; Pulse Ox 100% on R/A; sl2 18:30 BP 179 / 77; Pulse 74; Resp 16; Pulse Ox 100% on R/A; sl2 19:30 BP 162 / 82; Pulse 71; Resp 20 S; Temp 98.8(O); Pulse Ox 99% on R/A; bb 20:30 BP 141 / 82; Pulse 72; Resp 18 S; Pulse Ox 100% on R/A; bb 21:00 BP 122 / 88; Pulse 136; Resp 20; Pulse Ox 96% on R/A; bb 21:30 BP 120 / 75; Pulse 119; Resp 18 S; Temp 98.2(O); Pulse Ox 96% on R/A; bb 22:30 BP 150 / 85; Pulse 72; Resp 18 S; Pulse Ox 98% on R/A; bb 23:00 BP 139 / 82; Pulse 66; Resp 18 S; Pulse Ox 98% on R/A; bb 23:00 Temp 98.3(O); bb 12:44 Body Mass Index 32.92 (81.65 kg, 157.48 cm) aa5 NIH Stroke Scale Scores: 13:30 NIHSS Score: 4 iw ED Course: 11:23 Patient arrived in ED. ds1 12:43 Arm band placed on. aa5 12:46 Triage completed. aa5 12:51 Rod Camejo MD is Attending Physician. kdr 13:00 CT Stroke Brain w/o Contrast In Process Unspecified. EDMS 13:15 Patient has correct armband on for positive identification. Placed in gown. Bed in low sl2 position. Call light in reach. Side rails up X2. 13:15 No provider procedures requiring assistance completed. Inserted saline lock: 18 gauge sl2 in left antecubital area, using aseptic technique. 13:20 Stroke CXR 1 View In Process Unspecified. EDMS 13:34 Elyssa Rebolledo, RN is Primary Nurse. iw 14:17 Patient moved to MRI via wheelchair. iw 14:19 Primary Nurse role handed off by Elyssa Rebolledo, AQUILINO sl2 14:19 Neva Latham, AQUILINO is Primary Nurse. sl2 15:13 MRA Head Wo Cont In Process Unspecified. EDMS 15:14 Brain W/Wo Cont In Process Unspecified. EDMS 15:14 MRA Neck W/Wo Cont In Process Unspecified. EDMS 15:14 Patient moved back from MRI. sl2 16:33 Surya Anglin DO is Hospitalizing Provider. kdr 18:45 SARS-COV-2 RT PCR (Document "Date of Onset" if Symptomatic) Sent. [facility] Administered Medications: 14:14 Drug: Lisinopril 20 mg Route: PO; iw 16:27 Follow up: Response: Marked relief of symptoms sl2 16:20 Drug: Aspirin Chewable Tablet 324 mg Route: PO; sl2 17:00 Drug: Lopressor (metoprolol) 5 mg Route: IVP; Site: left antecubital; sl2 18:56 Follow up: Response: No adverse reaction sl2 21:26 Drug: Tylenol 1000 mg Route: PO; bb Point of Care Testing: Blood Glucose: 21:37 Blood Glucose: 240 mg/dL; bb Ranges: Outcome: 16:34 Decision to Hospitalize by Provider. kdr 11 08:37 Patient left the ED. iw NIH Stroke Scale - NIH Stroke Score Date: 10/05/2021 Time: 13:30 Total Score = 4 1a. Level of Consciousness (LOC) - 0(Alert) 1b. Level of Consciousness (LOC) (Month \\T\\ Age) - 0(Both) 1c. LOC Commands (Open \\T\\ Closes Eyes/Direct Support Specialist) - 0(Both) 2. Best Gaze (Lateral Gaze Paresis) - 0(Normal) 3. Visual Field Loss - 0(No visual loss) 4. Facial Palsy - 2(Partial paralysis) 5a. Left Arm: Motor (10-second hold) - 1(Drift) 5b. Right Arm: Motor (10-second hold) - 0(No drift) 6a. Left Leg: Motor (5-second hold - always test supine) - 1(Drift) 6b. Right Leg: Motor (5-second hold - always test supine) - 0(No drift) 7. Limb Ataxia (finger/nose \\T\\ heel/chakraborty - test with eyes open) - 0(Absent) 8. Sensory Loss (pinprick arms/legs/face) - 0(Normal) 9. Best Language: Aphasia (description/naming/reading) - 0(No aphasia) 10. Dysarthria (speech clarity - read or repeat words) - 0(Normal) 11. Extinction and Inattention (visual/tactile/auditory/spatial/personal) - 0(No abnormality) Initials: iw Signatures: Dispatcher [employer] EDMS Rod Camejo MD MD kdr Sanford, Demi ds1 Yesy James RN RN bb Elyssa Rebolledo RN RN iw Yessy Groves RN RN aa5 Tereza Medellin 3 Neva Latham RN RN sl2 Corrections: (The following items were deleted from the chart) 10/05 12:52 12:44 Chief complaint: Patient states: "I woke up really around 7 am dizzy and aa5 with a really bad headache". aa5 16:29 16:29 BP 187 / 88; Pulse 77bpm; Resp 16bpm; Pulse Ox 99% RA; iw iw
[2021-10-05] MEDS ORDERED: METOPROLOL TARTRATE 5 MG/5 ML INJ IV ONE (17:04)
--- NOTE | 2021-10-05 17:21 | P.HP ---
Certification for Inpatient Patient admitted to: Inpatient With expected LOS: >2 Midnights Patient will require the following post-hospital care: Rehabilitation Practitioner: I am a practitioner with admitting privileges, knowledge of patient current condition, hospital course, and medical plan of care. Services: Services provided to patient in accordance with Admission requirements found in Title 42 Section 412.3 of the Code of Federal Regulations Patient History Date of Service: 10/05/21 [facility] Reason for admission: Left-sided upper and lower extremity weakness History of Present Illness: 41-year-old female with history of hypertension, diabetes mellitus type 2, and prior CVA in January 2021. Patient reports having a CVA in January 2021 with left-sided weakness. She was actually seen here and transferred up to [place] for evaluation. Patient was given medication and discharged home. Today around 7 AM she noted weakness to the left lower and upper extremity. Patient was seen in the ER. By the time she arrived to the hospital it was around 1251. Patient was out of the window for TPA. CT scan showed showed no stroke. MRI head showed 6 mm acute infarct of the right thalamus. MRA brain showed scattered areas of narrowing involving the middle and posterior cerebral arteries bilaterally. Mild plaque within the carotid arteries was noted on MRA neck. Patient was given aspirin, Plavix, Lipitor in the emergency room. Patient was admitted for further evaluation and treatment. Patient reports blood pressure and blood sugar have been elevated. Patient reports compliance with her medication. She is not taking aspirin. Allergies No Known Allergies Allergy (Verified 09/23/17 20:22) Home medications list reviewed: Yes Home Medications: Insulin Detemir [Levemir*] 10 units SQ BEDTIME #10 ml 09/25/17 Losartan Potassium [Cozaar*] 100 mg PO DAILY #60 tablet 09/25/17 Metoprolol Tartrate [Lopressor*] 50 mg PO BID #60 tab 09/25/17 Nitrofuran Macro [Macrobid*] 100 mg PO BID #20 cap 09/25/17 - Past Medical/Surgical History Diabetic: Yes -: Type II diabetic -: HTN -: History of CVA, January 2021 -: Psychosocial/ Personal History: Patient lives at home - Family History Mother -: Hypertension, Diabetes Father -: Diabetes - Social History Smoking Status: Never smoker Alcohol use: No CD- Drugs: No Caffeine use: Yes Place of Residence: Home Review of Systems General: Weakness, As per HPI Eyes: Unremarkable ENT: Unremarkable Respiratory: Unremarkable Cardiovascular: Light Headedness, As per HPI Gastrointestinal: Unremarkable Genitourinary: Unremarkable Musculoskeletal: As per HPI Integumentary: Unremarkable Neurological: Weakness, As per HPI Lymphatics: Unremarkable Physical Examination - Studies Laboratory Data (last 24 hrs) 10/05/21 13:18: PT 10.9, INR 0.95, APTT 31.5 10/05/21 13:18: WBC 9.20, Hgb 11.2 L, Hct 35.1 L, Plt Count 353 10/05/21 13:18: Sodium 139, Potassium 3.6, BUN 13, Creatinine 0.81, Glucose 226 H Assessment and Plan - Plan COVID: Pending CT head: COMPARISON: Head Brain Wo Cont dated 01/21/2021; HEAD BRAIN W O CONTRAST dated 08/23/2013 TECHNIQUE: All CT scans are performed using dose optimization technique as appropriate and may include automated exposure control or mA/KV adjustment according to patient size. FINDINGS: No intracranial hemorrhage, hydrocephalus or extra-axial fluid collection.No areas of brain edema or evidence of midline shift. The paranasal sinuses and mastoids are clear. The calvarium is intact. IMPRESSION: No acute intracranial abnormality. MRI brain: COMPARISON: head CT October 05, 2021 TECHNIQUE: Axial, sagittal, and coronal magnetic images of the brain were obtained. 20 cc MultiHance administered intravenously FINDINGS: Mild signal within periventricular, deep and subcortical white matter probably ischemic changes secondary to small vessel disease The ventricles are normal in caliber. Diffusion-weighted/ ADC mapping sequences demonstrate a 6 millimeter area of abnormal signal within the right thalamus consistent with an acute infarction. 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 No abnormal enhancement within the brain is seen. An extra-axial fluid collection is not noted. Fluid within the sinuses/mastoids is not seen IMPRESSION: 6 millimeter acute infarction right thalamus MRA brain: COMPARISON: None. TECHNIQUE: Magnetic resonance angiogram was performed. 3D MIPS reconstruction performed FINDINGS: The A1 segment of the left anterior cerebral artery is hypoplastic. origin left posterior cerebral artery. Scattered areas of narrowing involve the middle and posterior cerebral arteries bilaterally. Thrombus is not visualized within the arteries. The basilar, internal carotid and anterior cerebral arteries appear unremarkable. An aneurysm is not displayed. IMPRESSION: Scattered areas of narrowing involving the middle and posterior cerebral arteries bilaterally. MRA neck: COMPARISON: None. TECHNIQUE: Magnetic resonance angiogram of the neck was performed. 20 cc MultiHance was administered intravenously. 3D MIPS reconstruction performed FINDINGS: Mild plaque is present within the common carotid, internal carotid and external carotid arteries bilaterally. No significant stenosis is visualized. The vertebral arteries are codominant without visualization of an abnormality. IMPRESSION: Mild plaque within the carotid arteries NASCET criteria used. Chest x-ray: COMPARISON: November 2020 FINDINGS: The lungs appear clear of acute infiltrate. The heart is normal size IMPRESSION: No acute abnormalities displayed Physical Exam: GENERAL: The patient is a well-developed, well-nourished, in no apparent distress. Alert and oriented x3. VITAL SIGNS: Reviewed HEENT: Head is normocephalic and atraumatic. Extraocular muscles are intact. Pupils are equal, round, and reactive to light and accommodation. Nares appeared normal. Mouth is well hydrated and without lesions. Mucous membranes are moist. NECK: Supple. No carotid bruits. No lymphadenopathy or thyromegaly. LUNGS: Clear to auscultation. No crackles or wheezes are heard. HEART: Regular rate and rhythm, no appreciable gallops, rubs, murmurs or extra heart sounds ABDOMEN: Soft, nontender, and nondistended. Positive bowel sounds. No hepatosplenomegaly was noted. EXTREMITIES: Without any cyanosis, clubbing, rash, lesions or peripheral edema. NEUROLOGIC: Left-sided weakness to the upper and lower extremities SKIN: Normal color, turgor and temperature. No ulcerations or rashes noted. Impression: Left-sided upper and lower extremity weakness secondary to 6 mm right thalamic CVA with history of CVA in the past Hypertension uncontrolled Diabetes mellitus type 2 insulin-dependent Hyperlipidemia Plan: Left-sided upper and lower extremity weakness secondary to 6 mm right thalamic CVA with history of CVA in the past: Patient will be admitted for further evaluation and treatment. Case discussed in detail with neurology. Stroke protocol in place. Will continue aspirin 81 mg daily and Plavix 75 mg daily. Continue DVT prophylaxisLovenox. Restart blood pressure medication to maintain blood pressure around 160-180 systolic for the next 24 to 48 hours. We will try to keep blood pressure below 180 systolic due to risk of hemorrhagic conversion. Blood pressure medication includes lisinopril 20 mg 1 pill twice daily and metoprolol 50 mg 1 pill twice daily. Hold medication if blood pressure systolic less than 160 for the next 48 hours. Swallow evaluation to be done. Will consult physical therapy, occupational therapy and speech therapy. Patient may require rehab. Await recommendations from physical therapy. We will continue to monitor the patient closely. We will also send lab for anticoagulation work-up due to her risk profile and age. Hypertension uncontrolled: Maintain blood pressure around 160-180 systolic over the next 48 hours.. IV medication provided if blood pressure systolic above 180. Continue lisinopril 20 mg 1 pill twice daily and metoprolol 50 mg 1 pill twice daily. We will continue to make adjustments to her medication in the next 48 to 72 hours. Diabetes mellitus type 2 insulin-dependent: We will check hemoglobin A1c. Continue Accu-Cheks and sliding scale. Obtain home medication. Hyperlipidemia: We will start Lipitor 40 mg daily. Will check fasting lipid panel. Code Status: Full Code DVT prophylaxis: Lovenox Advanced Care Planning-30 minutes: Home versus inpatient rehab Discharge Plan: Other (Home versus inpatient rehab) Plan to discharge in: Greater than 2 days - Advance Directives Does patient have a Living Will: No Does patient have a Durable POA for Healthcare: No - Code Status/Comfort Care Code Status Assessed: Yes (Full code) Time Spent Managing Pts Care (In Minutes): 55
[2021-10-05] MEDS ORDERED: ACETAMINOPHEN 500 MG TAB ONE (21:25)
[2021-10-06] MEDS: INSULIN -REGULAR HUMAN 50 UNIT/0.5 ML ML SQ SCH ×5 (03:27→20:45)
[2021-10-06] MEDS: lisinopriL 20 MG TAB PO SCH ×3 (03:27→20:45)
[2021-10-06] MEDS: METOPROLOL TAR 50 MG TAB PO SCH ×3 (03:27→20:45)
[2021-10-06] MEDS ORDERED: HYDRALAZINE HCL 20 MG/ML VIAL IV PRN (03:27)
[2021-10-06] MEDS ORDERED: ACETAMINOPHEN 500 MG TAB PO PRN (03:27)
[2021-10-06] MEDS ORDERED: ONDANSETRON 4 MG/2 ML VIAL IV PRN (03:27)
[2021-10-06] MEDS ORDERED: NA CHLORIDE 0.9% 1,000 ML ONE (03:35)
[2021-10-06] MEDS: ATORVASTATIN 20 MG TAB PO SCH ×2 (03:39→20:45)
[2021-10-06] MEDS: NA CHLORIDE 0.9% 1,000 ML IV SCH ×2 (03:39→16:48)
[2021-10-06 03:53] VITALS: BMI 32.9
[2021-10-06 05:05] LABS: Absolute Lymphocytes (CBC) 3.8 K/uL (0.7-4.9); Basophils % 0.6 % (0-1.3); Hematocrit 31.6 % (36.0-45.0); Lymphocytes % 43.5 % (15.3-44.8); MPV 8.9 fL (7.6-11.3); RBC Red Blood Cell Count 3.95 M/uL (3.86-4.86)
[2021-10-06 05:38] LABS: ALT/SGPT 20 U/L (12-78); AST/SGOT 13 U/L (15-37); Albumin 2.4 g/dL (3.4-5.0); Alkaline Phosphatase 93 U/L (45-117); BUN Blood Urea Nitrogen 14 mg/dL (7-18); Bicarbonate 28 mmol/L (21-32); Bilirubin Total 0.9 mg/dL (0.2-1.0); Creatine Phosphokinase 47 U/L (26-192); Glucose Level 187 mg/dL (74-106); HDL Cholesterol 52 mg/dL (40-60); LDL Cholesterol, Calculated 135 (<130); Magnesium 2.1 mg/dL (1.8-2.4); Potassium 3.6 mmol/L (3.5-5.1); Protein, Total 6.5 g/dL (6.4-8.2); Sodium Level 140 mmol/L (136-145); Troponin I < 0.02 ng/mL (0.0-0.045)
[2021-10-06 05:39] LABS: CKMB Creatine Kinase MB < 1.0 ng/mL (1.0-3.6)
--- NOTE | 2021-10-06 06:14 | P.PN ---
Subjective Date of Service: 10/06/21 Primary [facility] Chief Complaint: Left-sided upper and lower extremity weakness Subjective: Other (Condition unchanged. Still with left upper and lower extremity weakness) Physical Examination - Vital Signs Temperature: 97.6 F Blood Pressure: 138/82 Pulse: 71 Respirations: 15 Pulse Ox (%): 99 - Studies Laboratory Data (last 24 hrs) 10/05/21 13:18: PT 10.9, INR 0.95, APTT 31.5 10/05/21 13:18: WBC 9.20, Hgb 11.2 L, Hct 35.1 L, Plt Count 353 10/05/21 13:18: Sodium 139, Potassium 3.6, BUN 13, Creatinine 0.81, Glucose 226 H Assessment & Plan Discharge Plan: Other (Inpatient rehab) Plan to discharge in: 48 Hours Physician Review Additional Text: COVID: negative CT head: COMPARISON: Head Brain Wo Cont dated 01/21/2021; HEAD BRAIN W O CONTRAST dated 08/23/2013 TECHNIQUE: All CT scans are performed using dose optimization technique as appropriate and may include automated exposure control or mA/KV adjustment according to patient size. FINDINGS: No intracranial hemorrhage, hydrocephalus or extra-axial fluid collection.No areas of brain edema or evidence of midline shift. The paranasal sinuses and mastoids are clear. The calvarium is intact. IMPRESSION: No acute intracranial abnormality. MRI brain: COMPARISON: head CT October 05, 2021 TECHNIQUE: Axial, sagittal, and coronal magnetic images of the brain were obtained. 20 cc MultiHance administered intravenously FINDINGS: Mild signal within periventricular, deep and subcortical white matter probably ischemic changes secondary to small vessel disease The ventricles are normal in caliber. Diffusion-weighted/ ADC mapping sequences demonstrate a 6 millimeter area of abnormal signal within the right thalamus consistent with an acute infarction. 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 No abnormal enhancement within the brain is seen. An extra-axial fluid collection is not noted. Fluid within the sinuses/mastoids is not seen IMPRESSION: 6 millimeter acute infarction right thalamus MRA brain: COMPARISON: None. TECHNIQUE: Magnetic resonance angiogram was performed. 3D MIPS reconstruction performed FINDINGS: The A1 segment of the left anterior cerebral artery is hypoplastic. origin left posterior cerebral artery. Scattered areas of narrowing involve the middle and posterior cerebral arteries bilaterally. Thrombus is not visualized within the arteries. The basilar, internal carotid and anterior cerebral arteries appear unremarkable. An aneurysm is not displayed. IMPRESSION: Scattered areas of narrowing involving the middle and posterior cerebral arteries bilaterally. MRA neck: COMPARISON: None. TECHNIQUE: Magnetic resonance angiogram of the neck was performed. 20 cc MultiHance was administered intravenously. 3D MIPS reconstruction performed FINDINGS: Mild plaque is present within the common carotid, internal carotid and external carotid arteries bilaterally. No significant stenosis is visualized. The vertebral arteries are codominant without visualization of an abnormality. IMPRESSION: Mild plaque within the carotid arteries NASCET criteria used. Chest x-ray: COMPARISON: November 2020 FINDINGS: The lungs appear clear of acute infiltrate. The heart is normal size IMPRESSION: No acute abnormalities displayed Physical Exam: GENERAL: The patient is a well-developed, well-nourished, in no apparent distress. Alert and oriented x3. VITAL SIGNS: Reviewed HEENT: Head is normocephalic and atraumatic. Extraocular muscles are intact. Pupils are equal, round, and reactive to light and accommodation. Nares appeared normal. Mouth is well hydrated and without lesions. Mucous membranes are moist. NECK: Supple. No carotid bruits. No lymphadenopathy or thyromegaly. LUNGS: Clear to auscultation. No crackles or wheezes are heard. HEART: Regular rate and rhythm, no appreciable gallops, rubs, murmurs or extra heart sounds ABDOMEN: Soft, nontender, and nondistended. Positive bowel sounds. No hepatosplenomegaly was noted. EXTREMITIES: Without any cyanosis, clubbing, rash, lesions or peripheral edema. NEUROLOGIC: Left-sided weakness to the upper and lower extremities SKIN: Normal color, turgor and temperature. No ulcerations or rashes noted. Impression: Left-sided upper and lower extremity weakness secondary to 6 mm right thalamic CVA with history of CVA in the past Hypertension uncontrolled Diabetes mellitus type 2 insulin-dependent Hyperlipidemia Plan: Left-sided upper and lower extremity weakness secondary to 6 mm right thalamic CVA with history of CVA in the past: Patient remained stable. Unchanged since yesterday. Still with left-sided weakness to the upper and lower extremities. Continue with stroke protocol. Continue aspirin 80 mg daily, Plavix 25 mg daily, Lipitor 40 mg daily, folic acid 1 mg daily, lisinopril 20 mg 1 pill twice daily and metoprolol 50 mg 1 pill twice daily. Patient able to tolerate diet. Continue physical therapy and Occupational Therapy evaluation. Patient would benefit with inpatient rehab. Rehab consult made. Await approval. Will discuss with social sciences chair. Hypertension uncontrolled: Maintain blood pressure around 160-180 systolic over the next 24 hours. IV medication provided if blood pressure systolic above 180. Continue lisinopril 20 mg 1 pill twice daily and metoprolol 50 mg 1 pill twice daily. We will continue to make adjustments to her medication in the next 24 to 48 hours Diabetes mellitus type 2 insulin-dependent: Will check hemoglobin A1c. Continue Accu-Cheks and sliding scale. Will review and obtain home medication Hyperlipidemia: LDL 135. Continue Lipitor 40 mg daily Code Status: Full Code DVT prophylaxis: Lovenox Advanced Care Planning-30 minutes: Inpatient rehab Time Spent Managing Pts Care (In Minutes): 55
[2021-10-06] MEDS ORDERED: METOPROLOL TAR 50 MG TAB ONE (07:16)
[2021-10-06] MEDS ORDERED: CLOPIDOGREL 75 MG TABLET ONE (07:17)
[2021-10-06] MEDS ORDERED: THIAMINE HCL 100 MG TABLET ONE (07:17)
[2021-10-06] MEDS ORDERED: ASPIRIN EC 81 MG TAB PO ONE (07:17)
[2021-10-06] MEDS ORDERED: lisinopriL 20 MG TAB ONE (07:17)
[2021-10-06] MEDS ORDERED: FOLIC ACID 1 MG TABLET ONE (07:17)
[2021-10-06] MEDS ORDERED: ENOXAPARIN 40 MG/0.4 ML SQ ONE (07:18)
[2021-10-06] MEDS: ENOXAPARIN 40 MG/0.4 ML SQ SCH (07:44)
[2021-10-06] MEDS: FOLIC ACID 1 MG TABLET PO SCH (07:45)
[2021-10-06] MEDS: CLOPIDOGREL 75 MG TABLET PO SCH (07:45)
[2021-10-06] MEDS: ASPIRIN EC 81 MG TAB PO SCH (07:45)
[2021-10-06] MEDS: THIAMINE HCL 100 MG TABLET PO SCH (07:45)
--- NOTE | 2021-10-06 08:46 | RAD REPORT ---
EXAM DESCRIPTION: Bonita Almanzar (2 Views)10/06/2021 6:01 am CLINICAL HISTORY: CVA COMPARISON: October 06, 2021 FINDINGS: The lungs appear clear of acute infiltrate. The heart is normal size IMPRESSION: No acute abnormalities displayed
[2021-10-06] MEDS ORDERED: POTASSIUM CL SA 10 MEQ TAB PO ONE (09:00)
[2021-10-06 17:27] VITALS: O2SAT 99
[2021-10-06 18:45] LABS: Folic Acid, (Folate) 18.5 ng/mL (3.1-17.5)
[2021-10-06 22:08] LABS: T4,Total 9.9 ug/dL (4.8-13.9)
--- NOTE | 2021-10-06 23:58 | CON ---
Reason For Consultation: Consultation called because of stroke. History Of Present Illness: Ms. Yan is a 41-year-old right-handed patient with diabetes mellitus type 2, hypertension, prior stroke in January 2021, with left-sided weakness at that time who comes in with more weakness of the left face, arm, leg. It began around 7 a.m. on October 05. T he patient came to the emergency room with outside of the window for tPA as the symptoms began around 7 a.m. and she arrived around 12:51. Her head CT scan showed no acute ischemic or hemorrhagic strok e. However, her brain MRI identified an acute 6 mm infarct in the right thalamus. MRA showed areas of narrowing in the middle and posterior cerebral arteries. There was mild plaque in the carotid art eries and MRA of the neck. She was not taking an aspirin regularly. She was placed on aspirin, Plav ix, and statin in the emergency room along with folic acid and blood pressures were very elevated ini tially in the emergency room with systolic 228/diastolic 104. That was lowered gingerly to below 170 and now she has blood pressures in the 130s/80s and up to the 160s/80s. In terms of her deficits, s he has slight improvement in the numbness, weakness in the left face, arm and leg and some incoordina tion and subtle weakness is still there on the left side. Her complete blood count with differential shows slight anemia, hemoglobin 10.3, otherwise unremarkab le. Coagulation panel is unremarkable. Chemistries remarkable for glucose ranging up to 267. Liver function studies unremarkable. Triglycerides 184, total cholesterol 224, LDL cholesterol 135, HDL 5 2. Vitamin D is very low at 9.5. Thyroid-stimulating hormone unremarkable. Homocystine is pending. Serum protein electrophoresis pending. RPR pending. COVID-19 test is negative. Prothrombin gene mutation pending and additional stroke in young workup is also pending including protein C, protein S , antithrombin 3, anticardiolipin antibody, mutation. Past Medical History: As noted. Allergies: NO KNOWN DRUG ALLERGIES. Medications: Levemir insulin 10 units at bedtime, Cozaar 100 mg daily, Lopressor 50 mg twice daily, Macrobid 100 mg twice daily. Past Surgical History: . Family History: Hypertension, diabetes in mother. Diabetes in father. Social History: Denies alcohol, tobacco, or IV drug use. She does use caffeinated beverages. Review of Systems: Aside from mentioned, she denies any recent fevers, chills, nausea, vomiting, myalgias, arthralgias, rash, headache, weight change. She admits to the incoordination, weakness, numbness in the left face , arm, leg. Physical Examination: Vital Signs: Blood pressure 168/83, pulse 76, respiratory rate is 15, temperature 99.5, oxygen satur ation 99% room air. Weight 180 pounds, height 5 feet 2 inches, BMI 32.9. General: Ms. Yan is resting in bed. She is in no acute distress. HEENT: She is normocephalic, atraumatic. Sclerae nonicteric. Oropharynx is pink and moist. Neck: Supple. Chest: Clear. Heart: Regular. Extremities: Show no significant clubbing, cyanosis, or edema. Neurologic: She is alert and oriented to person, place, situation. In terms of cranial nerves, she has a slight decrease in the left nasolabial fold with decrease to light touch temperature in the lef t compared to the right side, otherwise intact cranial nerves. Motor examination, she has 4/5 streng th proximally and distally left upper and lower extremity with 5/5 strength proximally and distally a nd right upper and lower extremity. Sensation decreased in the left upper and lower extremity compar ed to the right side. Coordination, she has mild dysmetria noted in left upper and lower extremity c ompared to the right side. Gait, she has a tendency to drift to the left as she ambulates. Reflexes symmetric. Assessment: Ms. Yan is a 41-year-old patient with diabetes, hypertension, prior stroke and now n ew stroke in the right thalamic region, 6 mm in size. She was not on an aspirin regularly. Now she is on aspirin, Plavix, high-dose statin, folic acid, and antihypertensive medications along with diab etes medications. Plan: 1.She should have aggressive management of her stroke risk factors as noted above. 2.Aggressive physical therapy, if possible acute inpatient physical therapy as she is likely to bene fit the most from very aggressive therapy right around the time of acute stroke. 3.Continue all medications as noted above along with DVT prophylaxis, which may include Lovenox 40 m g subcutaneously daily. She does have low vitamin D levels and would benefit from starting 50,000 un its weekly of vitamin D as the level is very low at 9.5. JOEL/OMID Voice ID: [id number] Report ID: [id number]
[2021-10-07 04:12] LABS: Absolute Lymphocytes (CBC) 4.6 K/uL (0.7-4.9); Basophils % 0.7 % (0-1.3); Hematocrit 29.5 % (36.0-45.0); RBC Red Blood Cell Count 3.67 M/uL (3.86-4.86)
[2021-10-07] MEDS: NA CHLORIDE 0.9% 1,000 ML IV SCH (04:23)
[2021-10-07 04:35] LABS: Albumin 2.2 g/dL (3.4-5.0); Bilirubin Total 0.5 mg/dL (0.2-1.0); Magnesium 1.9 mg/dL (1.8-2.4); Potassium 3.8 mmol/L (3.5-5.1); Protein, Total 6.1 g/dL (6.4-8.2)
[2021-10-07 05:54] LABS: RPR (Rapid Plasma Reagin) NON-REACT (NON-REACT)
[2021-10-07] MEDS ORDERED: GLUCAGON 1 MG/VIAL IM PRN (06:04)
[2021-10-07] MEDS ORDERED: D50W 25 GM/50 ML SYRINGE IV PRN (06:04)
--- NOTE | 2021-10-07 06:05 | P.PN ---
Subjective Date of Service: 10/07/21 [facility] Chief Complaint: Left-sided upper and lower extremity weakness Subjective: Improving Physical Examination - Vital Signs Temperature: 97.5 F Blood Pressure: 173/80 Pulse: 65 Respirations: 18 Pulse Ox (%): 97 Assessment & Plan Discharge Plan: Home Plan to discharge in: 24 Hours Physician Review Additional Text: COVID: negative CT head: COMPARISON: Head Brain Wo Cont dated 01/21/2021; HEAD BRAIN W O CONTRAST dated 08/23/2013 TECHNIQUE: All CT scans are performed using dose optimization technique as appropriate and may include automated exposure control or mA/KV adjustment according to patient size. FINDINGS: No intracranial hemorrhage, hydrocephalus or extra-axial fluid collection.No areas of brain edema or evidence of midline shift. The paranasal sinuses and mastoids are clear. The calvarium is intact. IMPRESSION: No acute intracranial abnormality. MRI brain: COMPARISON: head CT October 05, 2021 TECHNIQUE: Axial, sagittal, and coronal magnetic images of the brain were obtained. 20 cc MultiHance administered intravenously FINDINGS: Mild signal within periventricular, deep and subcortical white matter probably ischemic changes secondary to small vessel disease The ventricles are normal in caliber. Diffusion-weighted/ ADC mapping sequences demonstrate a 6 millimeter area of abnormal signal within the right thalamus consistent with an acute infarction. 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 No abnormal enhancement within the brain is seen. An extra-axial fluid collection is not noted. Fluid within the sinuses/mastoids is not seen IMPRESSION: 6 millimeter acute infarction right thalamus MRA brain: COMPARISON: None. TECHNIQUE: Magnetic resonance angiogram was performed. 3D MIPS reconstruction performed FINDINGS: The A1 segment of the left anterior cerebral artery is hypoplastic. origin left posterior cerebral artery. Scattered areas of narrowing involve the middle and posterior cerebral arteries bilaterally. Thrombus is not visualized within the arteries. The basilar, internal carotid and anterior cerebral arteries appear unremarkable. An aneurysm is not displayed. IMPRESSION: Scattered areas of narrowing involving the middle and posterior cerebral arteries bilaterally. MRA neck: COMPARISON: None. TECHNIQUE: Magnetic resonance angiogram of the neck was performed. 20 cc MultiHance was administered intravenously. 3D MIPS reconstruction performed FINDINGS: Mild plaque is present within the common carotid, internal carotid and external carotid arteries bilaterally. No significant stenosis is visualized. The vertebral arteries are codominant without visualization of an abnormality. IMPRESSION: Mild plaque within the carotid arteries NASCET criteria used. Chest x-ray: COMPARISON: November 2020 FINDINGS: The lungs appear clear of acute infiltrate. The heart is normal size IMPRESSION: No acute abnormalities displayed Physical Exam: GENERAL: The patient is a well-developed, well-nourished, in no apparent distress. Alert and oriented x3. VITAL SIGNS: Reviewed HEENT: Neck supple LUNGS: Clear to auscultation. No crackles or wheezes are heard. HEART: Regular rate and rhythm, no appreciable gallops, rubs, murmurs or extra heart sounds ABDOMEN: Soft, nontender, and nondistended. Positive bowel sounds. No hepatosplenomegaly was noted. EXTREMITIES: Without any cyanosis, clubbing, rash, lesions or peripheral edema. NEUROLOGIC: Left-sided weakness to the upper and lower extremities still present but strength improved. SKIN: Normal color, turgor and temperature. No ulcerations or rashes noted. Impression: Left-sided upper and lower extremity weakness secondary to 6 mm right thalamic CVA with history of CVA in the past Hypertension uncontrolled Diabetes mellitus type 2 insulin-dependent Hyperlipidemia Plan: Left-sided upper and lower extremity weakness secondary to 6 mm right thalamic CVA with history of CVA in the past: Patient remained stable. Strength to the upper and lower extremities improved. Continue physical therapy and Occupat ional Therapy. Patient would benefit with inpatient rehab unfortunately patient is unfunded. Spoke with drug abuse social worker about the possibility of going to inpatient rehab through [facility]. If approved we will pursue inpatient rehab. If not approved then patient will need to go home. Continue with aspirin 81 mg daily, Plavix 75 mg daily, Lipitor 40 mg daily, folic acid 1 mg daily, lisinopril 20 mg 1 pill twice daily, and metoprolol 50 mg 1 pill twice daily. Await for possible approval for inpatient rehab. Will reassess later today. Anticipate possible home if not approved for inpatient rehab. Hypertension uncontrolled: Maintain blood pressure around 150-170 systolic systolic over the next 24 hours. IV medication provided if blood pressure systolic above 180. Continue lisinopril 20 mg 1 pill twice daily and metoprolol 50 mg 1 pill twice daily. We will continue to make adjustments to her medication in the next 24 to 48 hours Diabetes mellitus type 2 insulin-dependent: Hemoglobin A1c 10.6. Continue Accu- Cheks and sliding scale. Restart Lantus Hyperlipidemia: LDL 135. Continue Lipitor 40 mg daily Code Status: Full Code DVT prophylaxis: Lovenox Advanced Care Planning-30 minutes: Inpatient rehab if approved through [facility] process. If denied will pursue home discharge later today. Time Spent Managing Pts Care (In Minutes): 55
[2021-10-07] MEDS ORDERED: METOPROLOL TAR 50 MG TAB PO SCH (06:29)
[2021-10-07] MEDS ORDERED: lisinopriL 20 MG TAB PO SCH (06:29)
[2021-10-07] MEDS: INSULIN -REGULAR HUMAN 50 UNIT/0.5 ML ML SQ SCH (07:30)
--- NOTE | 2021-10-07 07:36 | ECHO ---
HEIGHT: 5 ft 2 in WEIGHT: 180 lb 0 oz DATE OF STUDY: 10/06/[address]: Surya Anglin DO 2-DIMENSIONAL: YES M.MODE: YES DOPPLER: YES COLOR FLOW: YES TDS: NO PORTABLE: NO DEFINITY: NO BUBBLE STUDY: NO DIAGNOSIS: STROKE CARDIAC HISTORY: CATHERIZATION: NO SURGERY: NO PROSTHETIC VALVE: NO PACEMAKER: NO MEASUREMENTS (cm) DIASTOLIC (NORMALS) SYSTOLIC (NORMALS) IVSd 1.2 (0.6-1.2) LA Diam 2.5 (1.9-4.0) LVEF 75% LVIDd 3.5 (3.5-5.7) LVIDs 2.0 (2.0-3.5) %FS 43% LVPWd 1.3 (0.6-1.2) Ao Diam 2.5 (2.0-3.7) 2 DIMENSIONAL ASSESSMENT: RIGHT ATRIUM: NORMAL LEFT ATRIUM: NORMAL RIGHT VENTRICLE: NORMAL LEFT VENTRICLE: NORMAL TRICUSPID VALVE: NORMAL MITRAL VALVE: NORMAL PULMONIC VALVE: NORMAL AORTIC VALVE: NORMAL PERICARDIAL EFFUSION: NONE AORTIC ROOT: NORMAL LEFT VENTRICULAR WALL MOTION: NORMAL. DOPPLER/COLOR FLOW: NORMAL. COMMENTS: NORMAL 2D ECHO WITH DOPPLER. NO WALL MOTION ABNORMALITY. NO EFFUSION. NO CLOT. NO VEGETATION. NO ATRIAL SEPTAL DEFECT. TECHNOLOGIST: ONEAL PYLE
[2021-10-07] MEDS ORDERED: INSULIN GLARGINE 100 UNIT/ML SQ SCH (08:00)
[2021-10-07] MEDS ORDERED: INSULIN GLARGINE 100 UNITS/ML SQ SCH (08:00)
[2021-10-07] MEDS: FOLIC ACID 1 MG TABLET PO SCH (08:07)
[2021-10-07] MEDS: THIAMINE HCL 100 MG TABLET PO SCH (08:07)
[2021-10-07] MEDS: ASPIRIN EC 81 MG TAB PO SCH (08:07)
[2021-10-07] MEDS: ENOXAPARIN 40 MG/0.4 ML SQ SCH (08:08)
[2021-10-07] MEDS: CLOPIDOGREL 75 MG TABLET PO SCH (08:08)
--- NOTE | 2021-10-07 08:08 | EKG ---
Test Date: 2021-10-05 Test Time: 13:28:42 [employer]: CHETAN MEASUREMENT RESULTS: Intervals: Rate: 81 MT: 146 QRSD: 82 QT: 362 QTc: 420 [place]: P: 34 MT: 146 QRS: 31 T: -16 INTERPRETIVE STATEMENTS: Normal sinus rhythm Nonspecific T wave abnormality Abnormal ECG Compared to ECG 01/21/2021 19:04:31 No significant changes Electronically Signed On 10-07-21 08:03:43 [employer] by Deon Cain
[2021-10-07] MEDS ORDERED: POTASSIUM CL SA 10 MEQ TAB PO ONE (09:00)
[2021-10-07 09:32] VITALS: BP 173/80; TEMP 97.5
--- NOTE | 2021-10-07 10:07 | P.DS ---
Admission Date: 10/05/21 Discharge Date: 10/07/21 Primary Care Provider: Akil Rangel [facility] Disposition: ROUTINE DISCHARGE Discharge Condition: GOOD Reason for Admission: Left-sided upper and lower extremity weakness Consultations: Neurology-Dr. Najera Procedures: COVID: negative CT head: COMPARISON: Head Brain Wo Cont dated 01/21/2021; HEAD BRAIN W O CONTRAST dated 08/23/2013 TECHNIQUE: All CT scans are performed using dose optimization technique as appropriate and may include automated exposure control or mA/KV adjustment according to patient size. FINDINGS: No intracranial hemorrhage, hydrocephalus or extra-axial fluid collection.No areas of brain edema or evidence of midline shift. The paranasal sinuses and mastoids are clear. The calvarium is intact. IMPRESSION: No acute intracranial abnormality. MRI brain: COMPARISON: head CT October 05, 2021 TECHNIQUE: Axial, sagittal, and coronal magnetic images of the brain were obtained. 20 cc MultiHance administered intravenously FINDINGS: Mild signal within periventricular, deep and subcortical white matter probably ischemic changes secondary to small vessel disease The ventricles are normal in caliber. Diffusion-weighted/ ADC mapping sequences demonstrate a 6 millimeter area of abnormal signal within the right thalamus consistent with an acute infarction. 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 No abnormal enhancement within the brain is seen. An extra-axial fluid collection is not noted. Fluid within the sinuses/mastoids is not seen IMPRESSION: 6 millimeter acute infarction right thalamus MRA brain: COMPARISON: None. TECHNIQUE: Magnetic resonance angiogram was performed. 3D MIPS reconstruction performed FINDINGS: The A1 segment of the left anterior cerebral artery is hypoplastic. origin left posterior cerebral artery. Scattered areas of narrowing involve the middle and posterior cerebral arteries bilaterally. Thrombus is not visualized within the arteries. The basilar, internal carotid and anterior cerebral arteries appear unremarkable. An aneurysm is not displayed. IMPRESSION: Scattered areas of narrowing involving the middle and posterior cerebral arteries bilaterally. MRA neck: COMPARISON: None. TECHNIQUE: Magnetic resonance angiogram of the neck was performed. 20 cc MultiHance was administered intravenously. 3D MIPS reconstruction performed FINDINGS: Mild plaque is present within the common carotid, internal carotid and external carotid arteries bilaterally. No significant stenosis is visualized. The vertebral arteries are codominant without visualization of an abnormality. IMPRESSION: Mild plaque within the carotid arteries NASCET criteria used. Chest x-ray: COMPARISON: November 2020 FINDINGS: The lungs appear clear of acute infiltrate. The heart is normal size IMPRESSION: No acute abnormalities displayed ECHO: CATHERIZATION: NO SURGERY: NO PROSTHETIC VALVE: NO PACEMAKER: NO MEASUREMENTS (cm) DIASTOLIC (NORMALS) SYSTOLIC (NORMALS) IVSd 1.2 (0.6-1.2) LA Diam 2.5 (1.9-4.0) LVEF 75% LVIDd 3.5 (3.5-5.7) LVIDs 2.0 (2.0-3.5) %FS 43% LVPWd 1.3 (0.6-1.2) Ao Diam 2.5 (2.0-3.7) 2 DIMENSIONAL ASSESSMENT: RIGHT ATRIUM: NORMAL LEFT ATRIUM: NORMAL RIGHT VENTRICLE: NORMAL LEFT VENTRICLE: NORMAL TRICUSPID VALVE: NORMAL MITRAL VALVE: NORMAL PULMONIC VALVE: NORMAL AORTIC VALVE: NORMAL PERICARDIAL EFFUSION: NONE AORTIC ROOT: NORMAL LEFT VENTRICULAR WALL MOTION: NORMAL. DOPPLER/COLOR FLOW: NORMAL. COMMENTS: NORMAL 2D ECHO WITH DOPPLER. NO WALL MOTION ABNORMALITY. NO EFFUSION. NO CLOT. NO VEGETATION. NO ATRIAL SEPTAL DEFECT. Medical Problem List: Left-sided upper and lower extremity weakness secondary to 6 mm right thalamic CVA with history of CVA in the past Hypertension uncontrolled Diabetes mellitus type 2 insulin-dependent Hyperlipidemia Brief History of Present Illness: 41-year-old female with history of hypertension, diabetes mellitus type 2, and prior CVA in January 2021. Patient reports having a CVA in January 2021 with left-sided weakness. She was actually seen here and transferred up to [place] for evaluation. Patient was given medication and discharged home. Today around 7 AM she noted weakness to the left lower and upper extremity. Patient was seen in the ER. By the time she arrived to the hospital it was around 1251. Patient was out of the window for TPA. CT scan showed showed no stroke. MRI head showed 6 mm acute infarct of the right thalamus. MRA brain showed scattered areas of narrowing involving the middle and posterior cerebral arteries bilaterally. Mild plaque within the carotid arteries was noted on MRA neck. Patient was given aspirin, Plavix, Lipitor in the emergency room. Patient was admitted for further evaluation and treatment. Patient reports blood pressure and blood sugar have been elevated. Patient reports compliance with her medication. She is not taking aspirin. Hospital Course: Patient presented with left sided upper and lower extremity weakness secondary to 6 mm right thalamic CVA with history of CVA in the past. Patient was admitted for treatment. Patient continued with stroke protocol. Neurology was consulted. Patient received Physical therapy and Occupational Therapy. Patient has done well. Patient was not a candidate for inpatient rehab due to lack of insurance. Patient worked well with physical therapy able to ambulate 250 feet feet without walker. No gross gait abnormality noted. Strength improved. At discharge patient will continue with aspirin 81 mg daily, Plavix 75 mg daily, Lipitor 40 mg daily, folic acid 1 mg daily, lisinopril 20 mg 1 pill twice daily and metoprolol 50 mg 1 pill twice daily. Patient will continue with physical therapy recommendations. Fall precautions in place. Recommend follow-up with neurology in 2 to 4 weeks to follow-up his hospitalization. Recommend follow-up with PCP within 1 week to follow-up his hospitalization. Education on CVA provided. Patient with hypertension. Blood pressures were uncontrolled upon admission. Blood pressure improved with changes in her medication. Patient no longer on losartan as this was replaced by lisinopril. Medications were adjusted and monitored closely due to her CVA. At discharge patient will continue with lisinopril 20 mg 1 pill twice daily and metoprolol 50 mg 1 pill twice daily. Recommend to maintain blood blood pressure around 140-150 systolic over the next 24 to 48 hours. After 48 hours better blood pressure control will be required. Less than 130/80 will be recommended. If blood pressure remains above 140/90 additional medication may be required. This can be done with the help of her P CP. Recommend to hold blood pressure medication if blood pressure systolic less than 110. Recommend close follow-up with PCP within 1 week to further monitor and adjust her medication. Patient with hyperlipidemia. LDL 135. At discharge patient will continue with Lipitor 40 mg daily. Recommend to recheck labCMP and fasting lipid panel in 2 to 4 weeks to monitor progress. Further adjustment in medication may be required. This could be done with the help of her PCP. Patient with diabetes mellitus type 2. Patient insulin-dependent. Hemoglobin A1c 10.6. At discharge patient will continue with her insulin therapyLevemir 10 units subcu daily. Recommend to maintain blood sugar less than 140 fasting and less than 200 after meals. If blood sugars remain above 200 further adjustment in medication may be required. This can be done with the help of her PCP. Recommend to recheck hemoglobin A1c every 3 months to monitor her progress. Recommend follow-up with her PCP to further address in detail. Vital Signs/Physical Exam: Temp Pulse Resp BP Pulse Ox 97.5 F 65 18 173/80 H 97 10/07/21 09:32 10/07/21 09:32 10/07/21 09:32 10/07/21 09:32 10/07/21 09:32 General: Alert, In no apparent distress, Oriented x3, Cooperative HEENT: Atraumatic Neck: Supple Respiratory: Clear to auscultation bilaterally, Normal air movement Cardiovascular: Normal pulses, Regular rate/rhythm Gastrointestinal: Normal bowel sounds, No tenderness, No masses, No rebound, No guarding Musculoskeletal: No erythema, No tenderness, No warmth Neurological: Normal affect, Abnormal strength (Better strength to the left upper and lower extremity.) Laboratory Data at Discharge: WBC 9.30 K/uL (4.3-10.9) 10/07/21 03:27 Hgb 9.6 g/dL (12.0-15.0) L 10/07/21 03:27 Hct 29.5 % (36.0-45.0) L 10/07/21 03:27 Plt Count 272 K/uL (152-406) 10/07/21 03:27 PT 10.9 SECONDS (9.5-12.5) 10/05/21 13:18 INR 0.95 10/05/21 13:18 APTT 31.5 SECONDS (24.3-36.9) 10/05/21 13:18 Sodium 142 mmol/L (136-145) 10/07/21 03:27 Potassium 3.8 mmol/L (3.5-5.1) 10/07/21 03:27 BUN 14 mg/dL (7-18) 10/07/21 03:27 Creatinine 0.75 mg/dL (0.55-1.3) 10/07/21 03:27 Glucose 221 mg/dL (74-106) H 10/07/21 03:27 Magnesium 1.9 mg/dL (1.8-2.4) 10/07/21 03:27 Total Bilirubin 0.5 mg/dL (0.2-1.0) 10/07/21 03:27 AST 11 U/L (15-37) L 10/07/21 03:27 ALT 17 U/L (12-78) 10/07/21 03:27 Alkaline Phosphatase 96 U/L (45-117) 10/07/21 03:27 Troponin I < 0.02 ng/mL (0.0-0.045) 10/06/21 04:35 Troponin I Cancelled 10/06/21 04:35 Triglycerides 184 mg/dL (<150) H 10/06/21 04:35 Cholesterol 224 mg/dL (<200) H 10/06/21 04:35 HDL Cholesterol 52 mg/dL (40-60) 10/06/21 04:35 Cholesterol/HDL Ratio 4.31 10/06/21 04:35 Home Medications: Insulin Detemir [Levemir*] 10 units SQ BEDTIME #10 ml 09/25/17 Aspirin [Aspirin EC 81 MG] 81 mg PO DAILY #90 tablet. 10/07/21 Atorvastatin Calcium [Lipitor] 40 mg PO DAILY #30 tablet 10/07/21 Clopidogrel Bisulfate [Plavix*] 75 mg PO DAILY #30 tablet 10/07/21 Folic Acid 1 mg PO DAILY #90 tablet 10/07/21 Metoprolol Tartrate [Lopressor*] 50 mg PO BID #60 tab 10/07/21 lisinopriL [Prinivil*] 20 mg PO BID #60 tab 10/07/21 New Medications: Aspirin [Aspirin EC 81 MG] 81 mg PO DAILY #90 tablet. Folic Acid 1 mg PO DAILY #90 tablet Atorvastatin Calcium [Lipitor] 40 mg PO DAILY #30 tablet Metoprolol Tartrate [Lopressor*] 50 mg PO BID #60 tab Clopidogrel Bisulfate [Plavix*] 75 mg PO DAILY #30 tablet lisinopriL [Prinivil*] 20 mg PO BID #60 tab Physician Discharge Instructions: Patient presented with left sided upper and lower extremity weakness secondary to 6 mm right thalamic CVA with history of CVA in the past. Patient was adm itted for treatment. Patient continued with stroke protocol. Neurology was consulted. Patient received Physical therapy and Occupational Therapy. Patient has done well. Patient was not a candidate for inpatient rehab due to lack of insurance. Patient worked well with physical therapy able to ambulate 250 feet feet without walker. No gross gait abnormality noted. Strength improved. At discharge patient will continue with aspirin 81 mg daily, Plavix 75 mg daily, Lipitor 40 mg daily, folic acid 1 mg daily, lisinopril 20 mg 1 pill twice daily and metoprolol 50 mg 1 pill twice daily. Patient will continue with physical therapy recommendations. Fall precautions in place. Recommend follow-up with neurology in 2 to 4 weeks to follow-up his hospitalization. Recommend follow-up with PCP within 1 week to follow-up his hospitalization. Education on CVA provided. Patient with hypertension. Blood pressures were uncontrolled upon admission. Blood pressure improved with changes in her medication. Patient no longer on losartan as this was replaced by lisinopril. Medications were adjusted and monitored closely due to her CVA. At discharge patient will continue with lisinopril 20 mg 1 pill twice daily and metoprolol 50 mg 1 pill twice daily. Recommend to maintain blood blood pressure around 140-150 systolic over the next 24 to 48 hours. After 48 hours better blood pressure control will be required. Less than 130/80 will be recommended. If blood pressure remains above 140/90 additional medication may be required. This can be done with the help of her PCP. Recommend to hold blood pressure medication if blood pressure systolic less than 110. Recommend close follow-up with PCP within 1 week to further monitor and adjust her medication. Patient with hyperlipidemia. LDL 135. At discharge patient will continue with Lipitor 40 mg daily. Recommend to recheck labCMP and fasting lipid panel in 2 to 4 weeks to monitor progress. Further adjustment in medication may be required. This could be done with the help of her PCP. Patient with diabetes mellitus type 2. Patient insulin-dependent. Hemoglobin A1c 10.6. At discharge patient will continue with her insulin therapyLevemir 10 units subcu daily. Recommend to maintain blood sugar less than 140 fasting and less than 200 after meals. If blood sugars remain above 200 further adjustment in medication may be required. This can be done with the help of her PCP. Recommend to recheck hemoglobin A1c every 3 months to monitor her progress. Recommend follow-up with her PCP to further address in detail. Diet: ADA Activity: Fall precautions Followup: NONE,NONE [Primary Care Provider] - Time spent managing pt's care (in minutes): 55
[2021-10-10 04:38] LABS: Alpha-1-Globulins 0.3 g/dL (0.2-0.3); Alpha-2-Globulins 0.8 g/dL (0.5-0.9); INTERPRETATION REPORT
[2021-10-11 14:22] LABS: Protein C Antigen 115 % (70-140)
[2021-10-12 14:33] LABS: Prothrombin Gene Analysis Test NEGATIVE
== END 2021-10-07 11:25 | disposition home or self-care (01) | DRG 65 ==
LOC: ER 11:21 → ERHOLD 17:25 → 4TH 10-06 08:42
PROVIDERS: ADMIT Family Medicine; ATTEND Family Medicine
DX: I63.9 Cerebral infarction, unspecified (principal); G81.94 Hemiplegia, unspecified affecting left nondominant side; R29.704 NIHSS score 4; I10 Essential (primary) hypertension; E11.9 Type 2 diabetes mellitus without complications; E78.5 Hyperlipidemia, unspecified; Z79.4 Long term (current) use of insulin; Z86.73 Personal history of transient ischemic attack (TIA), and cerebral infarction without residual deficits; Z20.822 Contact with and (suspected) exposure to COVID-19
CPT/HCPCS: 36415; 70450; 70544; 70549; 70553; 71045; 71046; 80048; 80053; 80061; 81240; 81241; 82306; 82550; 82553; 82607; 82746; 82947; 83036; 83090; 83735; 84165; 84436; 84443; 84484; 85025; 85300; 85302; 85305; 85306; 85610; 85730; 86021; 86146; 86147; 86148; 86592; 93005; 93306; 96374; 97110; 97112; 97116; 97161; 99285; A9577; J1650; J7030; U0003

== ENCOUNTER 2022-05-26 13:11 | Emergency (ER) | payer SELFPAY ==
[2022-05-26 14:54] LABS: Absolute Lymphocytes (CBC) 3.4 K/uL (0.7-4.9); Hematocrit 35.2 % (36.0-45.0); Lymphocytes % 36.1 % (15.3-44.8); MCV 78.1 fL (80-100); MPV 8.6 fL (7.6-11.3); RBC Red Blood Cell Count 4.51 M/uL (3.86-4.86)
[2022-05-26 14:57] LABS: Protime INR 0.94
[2022-05-26 14:58] LABS: Urine Blood Trace-intact (Negative); Urine Glucose 2+ (Negative); Urine Protein 3+ (Negative); Urine Specific Gravity >=1.030 (1.005-1.030); Urine pH 5.5 (5.0-7.0)
[2022-05-26 15:07] LABS: ALT/SGPT 17 U/L (12-78); AST/SGOT 7 U/L (15-37); Albumin 3.1 g/dL (3.4-5.0); Alkaline Phosphatase 120 U/L (45-117); BUN Blood Urea Nitrogen 14 mg/dL (7-18); Bicarbonate 27 mmol/L (21-32); Bilirubin Total 0.5 mg/dL (0.2-1.0); Glomerular Filtration Rate 88 ml/min (=/>90); Glucose Level 244 mg/dL (74-106); NT PRO-BNP 98 pg/mL (<125); Potassium 4.2 mmol/L (3.5-5.1); Protein, Total 7.9 g/dL (6.4-8.2); Sodium Level 138 mmol/L (136-145); Troponin High Sensitivity 4.5 pg/mL (<58.9)
[2022-05-26 15:08] LABS: Bilirubin Direct < 0.1 mg/dL (0-0.2)
--- NOTE | 2022-05-26 15:19 | RAD REPORT ---
EXAM DESCRIPTION: RAD - Chest Single View - 05/26/2022 3:01 pm CLINICAL HISTORY: Chest pain COMPARISON: Two view chest 10/06/2021 TECHNIQUE: AP portable chest image was obtained 05/26/2022 3:01 pm . FINDINGS: Lungs are clear. Heart and vasculature are normal. No measurable pleural effusion and no p neumothorax. No acute bony abnormality seen. No acute aortic findings suspected. IMPRESSION: No acute cardiopulmonary process. No significant change from comparison study.
[2022-05-26] MEDS ORDERED: NA CHLORIDE 0.9% 500 ML ONE (16:51)
[2022-05-26] MEDS ORDERED: ALBUTEROL 2.5 MG/3 ML NEB SOL ONE (16:51)
[2022-05-26] MEDS ORDERED: METHYLPREDNISOLONE 125 MG INJ ONE (16:51)
--- NOTE | 2022-05-26 17:45 | RAD REPORT ---
EXAM DESCRIPTION: CT - Chest For Pe Angio - 05/26/2022 5:28 pm CLINICAL HISTORY: chest pain COMPARISON: Chest For Pe Angio dated 11/23/2020 TECHNIQUE: Dynamically enhanced 3 mm thick images of the chest were obtained during administration o f approximately 150mL Isovue 370 IV contrast. Coronal and oblique MIP reconstruction images were gene rated and reviewed. Exam utilizes a protocol to evaluate the pulmonary arterial tree. All CT scans are performed using dose optimization technique as appropriate and may include automated exposure control or mA/KV adjustment according to patient size. FINDINGS: No pulmonary emboli are identified. The aorta as imaged shows no acute or suspicious finding. No pericardial thickening or effusion. No c ardiomegaly. No infiltrate or mass in the lung parenchyma. No pleural effusion or pleural thickening. No mediastinal or hilar suspicious masses. No chest wall masses or abnormal axillary lymphadenopathy. Thyroid gland is prominent but no significant nodularity seen. This is not significantly different fr om November 2020. IMPRESSION: No pulmonary emboli identified. Enlarged thyroid gland, appearing stable, without significant nodularity identifiable. No other significant or suspicious findings.
--- NOTE | 2022-05-26 18:16 | EDPHYS ---
Physician Documentation [facility] Name: Aida Yan Age: 41 yrs Sex: Female : 1980 Arrival Date: 05/26/2022 Time: 13:13 Bed 11 Private MD: ED Physician Francisco Manley HPI: 05/26 14:30 This 41 yrs old Female presents to ER via Ambulatory with complaints of cp Breathing Difficulty. 14:30 The patient has shortness of breath at rest. Onset: The symptoms/episode began/occurred cp 2 week(s) ago. 14:30 Duration: The symptoms are continuous, and are steadily getting worse. cp 14:30 Associated signs and symptoms: Pertinent positives: chest pain, Pertinent negatives: cp productive cough, diaphoresis, dizziness, fever, hemoptysis, vomiting. Severity of symptoms: in the emergency department the symptoms are unchanged despite home interventions. Patient reports multiple negative home COVID-19 tests recently. Historical: - Allergies: 14:25 No Known Allergies; iw - Home Meds: 14:25 amlodipine 5 mg oral tab once daily [Active]; glipizide-metformin 5-500 mg Oral tab 1 iw tab 2 times per day [Active]; clopidogrel 75 mg oral tab 1 tab once daily [Active]; losartan 75 mg Oral tab 1 tab once daily [Active]; - PMHx: 14:25 CVA; Diabetes - NIDDM; Hypertension; Left basal ganglia hemorrhage; iw - PSHx: 14:25 section; iw ROS: 14:35 Constitutional: Negative for body aches, chills, fever, poor PO intake. cp 14:35 Eyes: Negative for injury, pain, redness, and discharge. cp 14:35 ENT: Negative for drainage from ear(s), ear pain, sore throat, difficulty swallowing, difficulty handling secretions. 14:35 Cardiovascular: Positive for chest pain, Negative for edema. 14:35 Respiratory: Positive for shortness of breath, at rest. Negative for cough. 14:35 Abdomen/GI: Negative for abdominal pain, vomiting, diarrhea, constipation. 14:35 : Negative for urinary symptoms. 14:35 Neuro: Negative for altered mental status, dizziness, headache, syncope, weakness. 14:35 All other systems are negative. Exam: 14:40 Constitutional: The patient appears in no acute distress, alert, awake, cp non-diaphoretic, non-toxic, well developed, well nourished, obese. 14:40 Head/Face: Normocephalic, atraumatic. cp 14:40 Eyes: Periorbital structures: appear normal, Conjunctiva: normal, no exudate, no injection, Sclera: no appreciated abnormality, Lids and lashes: appear normal, bilaterally. 14:40 ENT: External ear(s): are unremarkable, Nose: is normal, Mouth: Lips: moist, Oral mucosa: pink and intact, moist, Posterior pharynx: Airway: no evidence of obstruction, patent. 14:40 Neck: ROM/movement: is normal, is supple, without pain, no range of motions limitations. 14:40 Chest/axilla: Inspection: normal. 14:40 Cardiovascular: Rate: normal, Rhythm: regular, Edema: is not appreciated, JVD: is not appreciated. 14:40 Respiratory: the patient does not display signs of respiratory distress, Respirations: shallow respirations, that is mild, Breath sounds: are clear throughout, no decreased breath sounds, no stridor, no wheezing. 14:40 Abdomen/GI: Inspection: abdomen appears normal, Palpation: abdomen is soft and non-tender, in all quadrants. 14:40 Back: CVA tenderness, is absent. 14:40 Skin: cellulitis, is not appreciated, no rash present. 14:40 Neuro: Orientation: to person, place \\T\\ time. Mentation: is normal, Motor: moves all fours, strength is normal, Sensation: is normal. Vital Signs: 14:23 BP 181 / 94; Pulse 86; Resp 18; Temp 97.5; Pulse Ox 100% on R/A; Weight 81.65 kg; iw Height 5 ft. 2 in. (157.48 cm); 18:29 BP 168 / 78; Pulse 84; Resp 18 S; Pulse Ox 98% on R/A; iw 14:23 Body Mass Index 32.92 (81.65 kg, 157.48 cm) iw MDM: 16:11 Patient medically screened. cp 18:15 Data reviewed: vital signs, nurses notes, lab test result(s), EKG, radiologic studies, cp CT scan, plain films, and as a result, I will discharge patient. 18:15 Differential diagnosis: asthma, Bronchitis CHF exacerbation, pneumonia, Pneumothorax cp pulmonary edema, Pulmonary Embolism Unstable Angina. Antibiotic administration: Not indicated, the patient does not have an appreciated infiltrate. Test interpretation: by ED physician or midlevel provider: ECG, plain radiologic studies. Counseling: I had a detailed discussion with the patient and/or guardian regarding: the historical points, exam findings, and any diagnostic results supporting the discharge/admit diagnosis, the presence of at least one elevated blood pressure reading (>120/80) during this emergency department visit, lab results, radiology results, the need for outpatient follow up, a family practitioner, to return to the emergency department if symptoms worsen or persist or if there are any questions or concerns that arise at home. Response to treatment: the patient's symptoms have markedly improved after treatment, and as a result, I will discharge patient. Special discussion: Based on the patient's history, exam, and Dx evaluation, there is no indication for emergent intervention or inpatient Tx. It is understood by the patient/guardian that if the Sx's persist or worsen they need to return immediately for re-evaluation. 05/26 14:23 Order name: Basic Metabolic Panel; Complete Time: 15:41 cp 05/26 15:42 Interpretation: Normal except: GLUC 244; GFR 88. cp 05/26 14:23 Order name: CBC with Diff; Complete Time: 15:41 cp 05/26 15:42 Interpretation: Normal except: HGB 11.4; HCT 35.2; MCV 78.1; MCH 25.2; PLT 410; RDW cp 16.4. 05/26 14:23 Order name: D-Dimer; Complete Time: 15:41 cp 05/26 14:23 Order name: LFT's; Complete Time: 15:41 cp 05/26 15:42 Interpretation: Normal except: AST 7; ALK 120; ALB 3.1; GLOB 4.8; A/G 0.6. cp 05/26 14:23 Order name: Magnesium; Complete Time: 15:41 cp 05/26 14:23 Order name: NT PRO-BNP; Complete Time: 15:41 cp 05/26 14:23 Order name: PT-INR; Complete Time: 15:41 cp 05/26 14:23 Order name: Troponin HS; Complete Time: 15:41 cp 05/26 14:24 Order name: COVID-19 SARS RT PCR (Document "Date of Onset" if Symptomatic); Complete cp Time: 16:32 05/26 14:24 Order name: Strep; Complete Time: 15:41 cp 05/26 14:24 Order name: Influenza Screen (a \\T\\ B); Complete Time: 15:41 cp 05/26 14:59 Order name: Urine Dipstick-Ancillary; Complete Time: 15:41 EDMS 05/26 15:07 Order name: Throat Culture EDMS 05/26 14:23 Order name: XRAY Chest (1 view); Complete Time: 15:41 05/26 14:23 Order name: EKG; Complete Time: 14:24 cp 05/26 14:23 Order name: Cardiac monitoring 05/26 14:23 Order name: EKG - Nurse/Tech; Complete Time: 14:40 05/26 14:23 Order name: IV Saline Lock; Complete Time: 14:40 05/26 14:23 Order name: Labs collected and sent; Complete Time: 14:40 05/26 14:23 Order name: O2 Per Protocol 05/26 14:23 Order name: O2 Sat Monitoring 05/26 14:23 Order name: Urine Dipstick-Ancillary (obtain specimen); Complete Time: 14:58 05/26 14:23 Order name: Urine Test (obtain specimen); Complete Time: 14:57 05/26 16:46 Order name: CT Chest For PE Angio; Complete Time: 18:14 05/26 18:14 Interpretation: Report reviewed. 05/26 18:14 Order name: Vital Signs: please update; Complete Time: 20:22 cp Administered Medications: 16:30 Drug: NS 0.9% 500 ml Route: IV; Rate: bolus; Site: right antecubital; iw 17:00 Follow up: IV Status: Completed infusion iw 17:18 Drug: SOLU-Medrol (methylPrednisoLONE) 125 mg Route: IVP; Site: right antecubital; iw 17:40 Follow up: Response: No adverse reaction iw 17:50 Drug: Albuterol 2.5 mg Route: Inhalation; iw 20:22 Not Given (Patient Refused): morphine 2 mg IVP once over 4 mins iw Disposition Summary: 05/26/22 18:15 Discharge Ordered Location: Home cp Problem: new cp Symptoms: have improved cp Condition: Stable cp Diagnosis - Shortness of breath cp - Chest pain, unspecified cp Followup: cp - With: Private Physician - When: 1 - 2 days - Reason: Recheck today's complaints Discharge Instructions: - Discharge Summary Sheet cp - Nonspecific Chest Pain, Adult cp - Shortness of Breath, Adult cp - Aspirin and Your Heart cp Forms: - Medication Reconciliation Form cp - Thank You Letter cp - Antibiotic Education cp - Prescription Opioid Use cp Prescriptions: - albuterol sulfate 90 mcg/actuation Inhalation HFA aerosol inhaler - inhale 1 puff by INHALATION route every 4-6 hours; 1 Inhaler; Refills: 0, cp Product Selection Permitted - Medrol (Matthew) 4 mg Oral Tablets, Dose Pack - take 1 tablet by ORAL route as directed - follow package instructions; 1 cp packet; Refills: 0, Product Selection Permitted Signatures: Dispatcher [employer] Elyssa Izaguirre RN RN Francisco Jeffery PA PA cp
--- NOTE | 2022-05-26 18:16 | ER ---
Nurse's Notes [facility] Name: Aida Yan Age: 41 yrs Sex: Female : 1980 Arrival Date: 05/26/2022 Time: 13:13 Bed 11 Private MD: Diagnosis: Shortness of breath;Chest pain, unspecified Presentation: 05/26 14:23 Chief complaint: Patient states: SOB x 2 weeks , had negative covid tests at home , iw +chest pain. Coronavirus screen: Client presents with at least one sign or symptom that may indicate coronavirus-19. Ebola Screen: Patient negative for fever greater than or equal to 101.5 degrees Fahrenheit, and additional compatible Ebola Virus Disease symptoms Patient denies exposure to infectious person. Patient denies travel to an Ebola-affected area in the 21 days before illness onset. No symptoms or risks identified at this time. Initial Sepsis Screen: Does the patient meet any 2 criteria? No. Patient's initial sepsis screen is negative. Does the patient have a suspected source of infection? No. Patient's initial sepsis screen is negative. Risk Assessment: Do you want to hurt yourself or someone else? Patient reports no desire to harm self or others. Onset of symptoms was May 14, 2022. 14:23 Method Of Arrival: Ambulatory iw 14:23 Acuity: VINICIO 3 iw Triage Assessment: 16:30 General: Appears in no apparent distress. Behavior is calm, cooperative. Respiratory: iw Reports shortness of breath Onset: The symptoms/episode began/occurred the patient has mild shortness of breath. Historical: - Allergies: 14:25 No Known Allergies; iw - Home Meds: 14:25 amlodipine 5 mg oral tab once daily [Active]; glipizide-metformin 5-500 mg Oral tab 1 iw tab 2 times per day [Active]; clopidogrel 75 mg oral tab 1 tab once daily [Active]; losartan 75 mg Oral tab 1 tab once daily [Active]; - PMHx: 14:25 CVA; Diabetes - NIDDM; Hypertension; Left basal ganglia hemorrhage; iw - PSHx: 14:25 section; iw Screenin:00 Abuse screen: Denies threats or abuse. Denies injuries from another. Nutritional iw screening: No deficits noted. Tuberculosis screening: No symptoms or risk factors identified. Fall Risk None identified. Assessment: 14:30 General: Appears in no apparent distress. Behavior is calm, cooperative. Pain: iw Complains of pain in chest. Neuro: Level of Consciousness is awake, alert, obeys commands, Oriented to person, place, time, situation, Moves all extremities. Cardiovascular: Patient's skin is warm and dry. Rhythm is regular. Respiratory: Reports shortness of breath cough that is Airway is patent Respiratory effort is even, unlabored, Breath sounds are clear bilaterally. GI: Abdomen is non-distended. Derm: Skin is intact, is healthy with good turgor. Musculoskeletal: Range of motion: intact in all extremities. Vital Signs: 14:23 BP 181 / 94; Pulse 86; Resp 18; Temp 97.5; Pulse Ox 100% on R/A; Weight 81.65 kg; iw Height 5 ft. 2 in. (157.48 cm); 18:29 BP 168 / 78; Pulse 84; Resp 18 S; Pulse Ox 98% on R/A; iw 14:23 Body Mass Index 32.92 (81.65 kg, 157.48 cm) iw ED Course: 13:13 Patient arrived in ED. mr 13:35 Francisco Edwards PA is PHCP. cp 13:35 Francisco Manley MD is Attending Physician. cp 14:25 Triage completed. iw 14:26 Arm band placed on. iw 14:30 Patient has correct armband on for positive identification. iw 14:39 Inserted saline lock: 20 gauge in right antecubital area, using aseptic technique. zm Blood collected. 14:39 Strep Sent. zm 14:39 Influenza Screen (a \\T\\ B) Sent. zm 14:40 COVID-19 SARS RT PCR (Document "Date of Onset" if Symptomatic) Sent. zm 14:40 Basic Metabolic Panel Sent. zm 14:40 CBC with Diff Sent. zm 14:40 D-Dimer Sent. zm 14:40 LFT's Sent. zm 14:40 Magnesium Sent. zm 14:40 NT PRO-BNP Sent. zm 14:40 PT-INR Sent. zm 14:40 Troponin HS Sent. zm 15:02 XRAY Chest (1 view) In Process Unspecified. EDMS 15:56 Elyssa Rebolledo, RN is Primary Nurse. iw 17:30 CT Chest For PE Angio In Process Unspecified. EDMS 18:50 No provider procedures requiring assistance completed. IV discontinued, intact, iw bleeding controlled, No redness/swelling at site. Pressure dressing applied. Administered Medications: 16:30 Drug: NS 0.9% 500 ml Route: IV; Rate: bolus; Site: right antecubital; iw 17:00 Follow up: IV Status: Completed infusion iw 17:18 Drug: SOLU-Medrol (methylPrednisoLONE) 125 mg Route: IVP; Site: right antecubital; iw 17:40 Follow up: Response: No adverse reaction iw 17:50 Drug: Albuterol 2.5 mg Route: Inhalation; iw 20:22 Not Given (Patient Refused): morphine 2 mg IVP once over 4 mins iw Medication: 14:30 VIS not applicable for this client. iw Outcome: 18:15 Discharge ordered by . thad 18:50 Discharged to home ambulatory. iw 18:50 Condition: good 18:50 Discharge instructions given to patient, Instructed on discharge instructions, follow up and referral plans. Demonstrated understanding of instructions, follow-up care. 18:51 Patient left the ED. iw Signatures: Dispatcher [employer] Delmis Lim Irene, RN RN iw Francisco Edwards PA PA Angie Loja
[2022-05-26 19:03] VITALS: TEMP 97.5
[2022-05-26 19:17] VITALS: BP 168/78; O2SAT 98
--- NOTE | 2022-05-27 13:07 | EKG ---
Test Date: 2022-05-26 Test Time: 14:49:41 Safety Patrol Officer: CHAIM MEASUREMENT RESULTS: Intervals: Rate: 79 HI: 142 QRSD: 74 QT: 366 QTc: 419 [place]: P: 23 HI: 142 QRS: 21 T: 127 INTERPRETIVE STATEMENTS: Normal sinus rhythm Nonspecific T wave abnormality Abnormal ECG Compared to ECG 10/05/2021 13:28:42 No significant changes Electronically Signed On 05-27-22 13:04:36 CDT by Twin Neal
== END 2022-05-26 18:51 | disposition home or self-care (01) ==
LOC: ER 13:11
DX: R06.02 Shortness of breath (principal); R07.9 Chest pain, unspecified; I10 Essential (primary) hypertension; E11.9 Type 2 diabetes mellitus without complications; Z86.73 Personal history of transient ischemic attack (TIA), and cerebral infarction without residual deficits
CPT/HCPCS: 36415; 71045; 71275; 80048; 80076; 81003; 83735; 83880; 84484; 85025; 85379; 85610; 87070; 87081; 87804; 93005; J2930; J7040; Q9967; U0003

== ENCOUNTER 2024-06-18 19:37 | Inpatient (IN) | payer OTHER, SELFPAY ==
[2024-06-18 20:33] LABS: Absolute Basophils 0.1 K/uL (0-0.5); Absolute Eosinophils 0.2 K/uL (0-0.5); Absolute Lymphocytes (CBC) 3.6 K/uL (0.7-4.9); Absolute Monocytes 0.5 K/uL (0.1-1.3); Absolute Neutrophil 5.4 K/uL (1.8-8.0); Basophils % 0.8 % (0-1.3); Eosinophils % 1.7 % (0-4.4); Hematocrit 25.6 % (36.0-45.0); Hemoglobin 8.2 g/dL (12.0-15.0); Lymphocytes % 36.8 % (15.3-44.8); MCH 23.9 pg (27.0-35.0); MCHC 31.9 g/dL (32.0-36.0); MPV 8.8 fL (7.6-11.3); Monocytes % 5.3 % (3.3-12.3); Neutrophils % 55.4 % (41.7-73.7); Platelets 398 thou/uL (152-406); RBC Red Blood Cell Count 3.42 M/uL (3.86-4.86); Red Cell Distribution Width 16.6 % (12.1-15.2)
[2024-06-18] MEDS ORDERED: METOCLOPRAMIDE 10 MG/2mL INJ ONE (20:34)
[2024-06-18] MEDS ORDERED: DIPHENHYDRAMINE 50 MG/ML VIAL ONE (20:34)
[2024-06-18] MEDS ORDERED: ACETAMINOPHEN 500 MG TAB ONE (20:34)
[2024-06-18] MEDS ORDERED: LABETALOL 20 MG/4ML SYRINGE IV ONE (20:34)
--- NOTE | 2024-06-18 20:44 | RAD REPORT ---
EXAM DESCRIPTION: [place] Single View06/18/2024 8:35 pm CLINICAL HISTORY: Hypertension COMPARISON: 2021 FINDINGS: The lungs appear clear of acute infiltrate. The heart is normal size IMPRESSION: No acute abnormalities displayed
[2024-06-18 20:51] LABS: ALT/SGPT 17 U/L (13-56); Albumin 3.2 g/dL (3.4-5.0); Albumin/Globulin Ratio 0.8 (1.1-1.8); Alkaline Phosphatase 98 U/L (45-117); Anion Gap 6.7 mEq/L (5.0-15.0); BUN Blood Urea Nitrogen 25 mg/dL (7-18); Bicarbonate 29 mEq/L (21-32); Bilirubin Total 0.5 mg/dL (0.2-1.0); Globulin 4.2 g/dL (2.3-3.5); Glomerular Filtration Rate 43 ml/min (=/>90); Glucose Level 273 mg/dL (74-106); Magnesium 1.9 mg/dL (1.6-2.4); NT PRO-BNP 458 pg/mL (<125); Potassium 3.7 mEq/L (3.5-5.1); Protein, Total 7.4 g/dL (6.4-8.2); Sodium Level 134 mEq/L (136-145); Troponin High Sensitivity 6.5 pg/mL (<58.9)
[2024-06-18 20:52] LABS: AST/SGOT < 10 U/L (15-37); Bilirubin Direct < 0.2 mg/dL (0-0.2); Bilirubin Indirect, Calculated 0.3 mg/dL (0.2-0.8)
--- NOTE | 2024-06-18 21:17 | RAD REPORT ---
EXAM DESCRIPTION: CT - Head Brain Wo Cont - 06/18/2024 8:56 pm CLINICAL HISTORY: Headache COMPARISON: 2020 TECHNIQUE: Computed axial tomography of the head was obtained. IV contrast was not requested. All CT scans are performed using dose optimization technique as appropriate and may include automated exposure control or mA/KV adjustment according to patient size. FINDINGS: An intracranial bleed is not seen The ventricles are normal in caliber No significant hypodense areas within the brain visualized No extra-axial fluid collection is noted. Fluid within the sinuses/ mastoids is not seen IMPRESSION: No acute intracranial abnormality is seen If patient's symptoms persist MRI of the brain would be recommended
--- NOTE | 2024-06-18 21:45 | EDPHYS ---
Physician Documentation [facility] Name: Aida Yan Age: 43 yrs Sex: Female : 1980 Arrival Date: 06/18/2024 Time: 19:37 Bed 14 Private MD: ED Physician Mj Young HPI: 06/18 20:13 This 43 yrs old Female presents to ER via Ambulatory with complaints of rt Headache, Numbness Of Arm, Numbness. 20:13 Patient presents to the ED with 3 days of headache. Patient reports a left-sided rt numbness as well as heaviness in her arm or leg. No, patient is having 2 stroke, 1 hemorrhagic. States the symptoms feel similar. Denies other acute complaints at this time, symptoms are moderate in severity, no other aggravating relieving factors. Patient states that the symptoms have been intermittent.. 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 - Infectious Disease History:: Denies. - Social history:: Smoking status: Patient denies any tobacco usage or history of. Patient/guardian denies using alcohol, street drugs. - Family history:: not pertinent. ROS: 20:13 Constitutional: Negative for fever, chills, and weight loss, Cardiovascular: Negative rt for chest pain, palpitations, and edema, Respiratory: Negative for shortness of breath, cough, wheezing, and pleuritic chest pain, Abdomen/GI: Negative for abdominal pain, nausea, vomiting, diarrhea, and constipation, MS/Extremity: Negative for injury and deformity, Skin: Negative for injury, rash, and discoloration, 20:13 Neuro: Positive for headache, numbness, Exam: 20:13 Constitutional: This is a well developed, well nourished patient who is awake, alert, rt and in no acute distress. Head/Face: Normocephalic, atraumatic. Chest/axilla: Normal chest wall appearance and motion. Nontender with no deformity. No lesions are appreciated. Cardiovascular: Regular rate and rhythm with a normal S1 and S2. No gallops, murmurs, or rubs. Normal PMI, no JVD. No pulse deficits. Respiratory: Lungs have equal breath sounds bilaterally, clear to auscultation and percussion. No rales, rhonchi or wheezes noted. No increased work of breathing, no retractions or nasal flaring. Abdomen/GI: Soft, non-tender, with normal bowel sounds. No distension or tympany. No guarding or rebound. No evidence of tenderness throughout. Skin: Warm, dry with normal turgor. Normal color with no rashes, no lesions, and no evidence of cellulitis. MS/ Extremity: Pulses equal, no cyanosis. Neurovascular intact. Full, normal range of motion. 20:13 Neuro: Awake, alert, sensory deficits on the left side of the face, left arm, left leg. Sensation and cranial nerves otherwise intact, strength 5/5 in upper and lower extremities, speech normal, no ataxia with [id number], 20:45 ECG was reviewed by the Attending Physician. rt Vital Signs: 19:58 BP 233 / 103; Pulse 86; Resp 19; Temp 97.2; Pulse Ox 100% ; Weight 78.02 kg; Height 5 jj7 ft. 2 in. ; Pain 0/10; 20:06 BP 215 / 106; Pulse 87; Resp 18; Temp 98.4; Pulse Ox 99% on R/A; Pain 8/10; rg5 21:00 BP 203 / 89; Pulse 80; Resp 18; Pulse Ox 100% ; 5 21:30 BP 197 / 86; Pulse 86; Resp 18; Pulse Ox 100% on R/A; rg5 22:00 BP 129 / 43; Pulse 75; Resp 18; Pulse Ox 100% on R/A; rg5 22:30 BP 130 / 73; Pulse 82; Resp 17; Pulse Ox 100% on R/A; rg5 19:58 Body Mass Index 31.46 (78.02 kg, 157.48 cm) [facility] 19:58 Pain Scale: Adult [facility] 20:06 Pain Scale: Adult [facility] Domitila Coma Score: 20:06 Eye Response: spontaneous(4). Motor Response: obeys commands(6). Verbal Response: rg5 oriented(5). Total: 15. MDM: 20:07 Patient medically screened. rt 21:45 Differential diagnosis: Intracranial hemorrhage, hypertensive emergency, acute kidney rt injury, acute CVA. Data reviewed: vital signs, nurses notes, lab test result(s), EKG, radiologic studies. Consideration of Admission/Observation Patient was admitted/placed on observation. Management of patient was discussed with the following: Hospitalist: Agrees to admit. I considered the following discharge prescriptions or medication management in the emergency department Medications were administered in the Emergency Department. See MAR. Independent interpretation of the following test(s) in the Emergency Department CT Scan: My interpretation is No intracranial hemorrhage seen on interpretation of CT scan images. Care significantly affected by the following chronic conditions: Diabetes, Hypertension. Counseling: I had a detailed discussion with the patient and/or guardian regarding the historical points, exam findings, and any diagnostic results supporting the discharge/admit diagnosis, lab results, radiology results, the need for further work-up and treatment in the hospital. Response to treatment: the patient's symptoms have markedly improved after treatment. 21:45 ED course: Outside of the window for tPA, thrombolytics contraindicated. rt 08/ 20:12 Order name: Basic Metabolic Panel; Complete Time: 20:53 rt 06/18 20:12 Order name: CBC with Diff; Complete Time: 20:45 rt 06/18 20:12 Order name: LFT's; Complete Time: 20:53 rt 06/18 20:12 Order name: Magnesium; Complete Time: 20:53 rt 06/18 20:12 Order name: NT PRO-BNP; Complete Time: 20:53 rt 06/18 20:12 Order name: Troponin HS; Complete Time: 20:53 rt 06/18 22:13 Order name: Urinalysis w/ reflexes EDMS 06/18 22:13 Order name: CBC with Automated Diff EDMS 06/18 22:13 Order name: CBC with Automated Diff EDMS 06/18 22:13 Order name: Comprehensive Metabolic Panel EDMS 06/18 22:13 Order name: Comprehensive Metabolic Panel EDMS 06/19 08:04 Order name: Glucose, Ancillary Testing EDMS 06/19 12:59 Order name: LDL, Direct EDMS 06/18 20:12 Order name: XRAY Chest (1 view); Complete Time: 20:45 rt 06/18 20:12 Order name: CT Head Brain wo Cont; Complete Time: 21: rt 06/19 12:00 Order name: MRI EDMS 06/18 20:12 Order name: Cardiac monitoring; Complete Time: 20: rt 06/18 20:12 Order name: EKG - Nurse/Tech; Complete Time: 20: rt 06/18 20:12 Order name: IV Saline Lock; Complete Time: : rt 06/18 20:12 Order name: Labs collected and sent; Complete Time: : rt 06/18 20:12 Order name: O2 Per Protocol; Complete Time: : rt 06/18 20:12 Order name: O2 Sat Monitoring; Complete Time: : rt EC:45 Rate is 87 beats/min. Rhythm is regular, Normal Sinus Rhythm with No ectopy. QRS [place] rt is Normal. NE interval is normal. QRS interval is normal. QT interval is normal. No Q waves. Clinical impression: NSR w/ Non-specific ST/T Changes. Administered Medications: 20:00 Drug: diphenhydrAMINE IVP 25 mg IVP once Route: IVP; Site: right antecubital; rg5 23:02 Follow up: Response: No adverse reaction rg5 20:30 Drug: Labetalol IV 10 mg IV at calculated rate once Route: IV; Rate: calculated rate; rg5 Site: right antecubital; 23:03 Follow up: Response: Blood pressure is lowered; IV Status: Completed infusion rg5 20:30 Drug: Acetaminophen PO 1000 mg PO once Route: PO; rg5 23:02 Follow up: Response: No adverse reaction rg5 20:30 Drug: metoCLOPramide IVP 10 mg IVP once; over 1 to 2 minutes Route: IVP; Site: right rg5 antecubital; 23:02 Follow up: Response: No adverse reaction rg5 21:54 Drug: hydrALAZINE IVP 20 mg IVP once Route: IVP; Site: right antecubital; rg5 23:02 Follow up: Response: Blood pressure is lowered rg5 Disposition Summary: 06/18/24 21:45 Hospitalization Ordered Notes: Hospitalization Status: Observation rt Provider: Hay Montoya rt Condition: Fair rt Problem: new rt Symptoms: have improved rt Bed/Room Type: Standard rt Location: Telemetry/MedSurg (Inpatient)(06/19/24 13:39) Room Assignment: 207(06/19/24 13:41) Diagnosis - Headache rt - Left-sided numbness rt - Hypertensive emergency rt - Acute kidney injury rt Forms: - Medication Reconciliation Form rt - SBAR form rt - Leadership Thank You Letter rt Critical care time excluding procedures: 21:45 Critical care time: Bedside Care: 30 minutes, Consultation: 5 minutes. Total time: 35 rt minutes Signatures: Dispatcher [employer] EDMS Kelin Wilson, RN RN Lia Kat, RN RN cg Natasha Cho RN RN ap3 Devorah Vega RN RN jjMj Daniel MD MD rt Sha Fisher RN RN rg5 Corrections: (The following items were deleted from the chart) 20:13 20:13 Head Brain Wo Cont+CT.RAD.BRZ ordered. EDMS EDMS 22:53 21:45 Telemetry/MedSurg (observation) rt cg 22:53 21:45 rt cg 22:58 20:04 PMHx: CVA; jj7 rg5 22:58 20:04 PMHx: Diabetes - NIDDM; jj7 rg5 22:58 20:04 PMHx: Hypertension; jj7 rg5 22:58 20:04 PSHx: section; jj7 rg5 06/19 13:39 05 22:53 [facility] ER HOLD [facility] 06/19 13:39 08 22:53 ERHOLD- cg 06/19 13:40 13:39 207 ap3 13:41 13:40 214 ap3
--- NOTE | 2024-06-18 21:45 | ER ---
Nurse's Notes [facility] Name: Aida Yan Age: 43 yrs Sex: Female : 1980 Arrival Date: 06/18/2024 Time: 19:37 Bed 14 Private MD: Diagnosis: Headache;Left-sided numbness;Hypertensive emergency;Acute kidney injury Presentation: 06/18 19:58 Chief complaint:. Chief complaint: Patient states: SINCE YESTERDAY SHE HAS BEEN HAVING jj7 TINGLING AND HEAVINESS IN HER LEFT ARM AND LEG. IT COMES AND GOES. STATES IT'S BEEN HAPPENING EVERY 15 MINUTES. HX OF 2 STROKES. Coronavirus screen: At this time, the client does not indicate any symptoms associated with coronavirus-19. Ebola Screen: No symptoms or risks identified at this time. Initial Sepsis Screen: Does the patient meet any 2 criteria? No. Patient's initial sepsis screen is negative. Does the patient have a suspected source of infection? No. Patient's initial sepsis screen is negative. Risk Assessment: Do you want to hurt yourself or someone else? Patient reports no desire to harm self or others. Onset of symptoms was June 17, 2024. 19:58 Method Of Arrival: Ambulatory [facility] 19:58 Acuity: VINICIO 3 jj7 Triage Assessment: 20:04 Headache History: Denies prior headaches. General: Appears in no apparent distress. jj7 comfortable, Behavior is calm, cooperative, appropriate for age. Pain: Denies pain. Neuro: Reports numbness paresthesias in left arm and left leg. 20:04 Pain: Also complains of no other associated symptoms. rg5 20:29 Pain: Pain. 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 - Infectious Disease History:: Denies. - Social history:: Smoking status: Patient denies any tobacco usage or history of. Patient/guardian denies using alcohol, street drugs. - Family history:: not pertinent. Screenin:06 [facility] ED Fall Risk Assessment (Adult) History of falling in the last 3 months, jj7 including since admission No falls in past 3 months (0 pts) Confusion or Disorientation No (0 pts) Intoxicated or Sedated No (0 pts) Impaired Gait No (0 pts) Mobility Assist Device Used No (0 pt) Altered Elimination No (0 pt) Score/Fall Risk Level 0 - 2 = Low Risk Oriented to surroundings, Maintained a safe environment, Educated pt \T\ family on fall prevention, incl call for assistance when getting out of bed, Assessed \T\ reinforced patient's understanding of fall precautions. Abuse screen: Denies threats or abuse. Nutritional screening: No deficits noted. Tuberculosis screening: No symptoms or risk factors identified. Assessment: 20:06 General: Appears Behavior is calm, cooperative, appropriate for age. rg5 20:06 Pain: Complains of pain in HEAD Pain currently is 8 out of 10 on a pain scale. Quality rg5 of pain is described as aching, Pain began 1 day ago. 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 Speech is normal, Facial symmetry appears normal, Pupils are PERRLA, Tingling in left leg Reports weakness in left arm and left leg. Cardiovascular: Denies chest pain, Heart tones S1 S2 present Capillary refill < 3 seconds Rhythm is sinus rhythm. Respiratory: Airway is patent Trachea midline Respiratory effort is even, unlabored, Respiratory pattern is regular, symmetrical. GI: Abdomen is round Abd is soft and non tender X 4 quads. : No signs and/or symptoms were reported regarding the genitourinary system. : No signs and/or symptoms were reported regarding the genitourinary system. EENT: Reports blurred vision in LEFT EYE \T\ RIGHT EYE since this morning. Derm: Skin is intact, Skin is dry, Skin is normal, Skin temperature is warm Reports tingling, since this morning. left leg \T\ left arm. Musculoskeletal: Range of motion: intact in all extremities, Reports weakness in left arm and left leg since this morning. 21:33 Reassessment: Patient and/or family updated on plan of care and expected duration. Pain rg5 level reassessed. Patient is alert, oriented x 3, equal unlabored respirations, skin warm/dry/pink. 22:56 Reassessment: Patient and/or family updated on plan of care and expected duration. Pain rg5 level reassessed. Patient is alert, oriented x 3, equal unlabored respirations, skin warm/dry/pink. Patient states symptoms have improved. Vital Signs: 19:58 BP 233 / 103; Pulse 86; Resp 19; Temp 97.2; Pulse Ox 100% ; Weight 78.02 kg; Height 5 jj7 ft. 2 in. ; Pain 0/10; 20:06 BP 215 / 106; Pulse 87; Resp 18; Temp 98.4; Pulse Ox 99% on R/A; Pain 8/10; rg5 21:00 BP 203 / 89; Pulse 80; Resp 18; Pulse Ox 100% ; rg5 21:30 BP 197 / 86; Pulse 86; Resp 18; Pulse Ox 100% on R/A; rg5 22:00 BP 129 / 43; Pulse 75; Resp 18; Pulse Ox 100% on R/A; rg5 22:30 BP 130 / 73; Pulse 82; Resp 17; Pulse Ox 100% on R/A; rg5 19:58 Body Mass Index 31.46 (78.02 kg, 157.48 cm) j7 19:58 Pain Scale: Adult j7 20:06 Pain Scale: Adult rg5 Vitals: 20:06 Cardiac Rhythm Assessment Regular Sinus rhythm. rg5 [place] Coma Score: 20:06 Eye Response: spontaneous(4). Motor Response: obeys commands(6). Verbal Response: rg5 oriented(5). Total: 15. ED Course: 19:42 Patient arrived in ED. gm2 19:55 Mj Young MD is Attending Physician. rt 20:04 Triage completed. jj7 20:04 Arm band placed on right wrist. jj7 20:06 Patient has correct armband on for positive identification. Placed in gown. Bed in low ha1 position. Call light in reach. Side rails up X 1. 20:20 Inserted saline lock: 20 gauge in right antecubital area, using aseptic technique. ha1 Blood collected. Flushed with 10 mL NS. 20:22 Basic Metabolic Panel Sent. rg5 20:22 CBC with Diff Sent. rg5 20:22 LFT's Sent. rg5 20:23 Magnesium Sent. rg5 20:23 NT PRO-BNP Sent. rg5 20:23 Troponin HS Sent. rg5 20:37 XRAY Chest (1 view) In Process Unspecified. EDMS 20:51 Sha Fisher, RN is Primary Nurse. rg5 20:[address] via stretcher. rg5 20:58 CT Head Brain wo Cont In Process Unspecified. EDMS 21:44 Hay Montoya MD is Hospitalizing Provider. rt 22:58 Awaiting bed assignment. rg5 22:59 Provided Education on: needs for admit. Door closed. Noise minimized. Warm blanket rg5 given. 22:59 No provider procedures requiring assistance completed. rg5 23:01 Patient admitted, IV remains in place. intact, No redness/swelling at site. rg5 Administered Medications: 20:00 Drug: diphenhydrAMINE IVP 25 mg IVP once Route: IVP; Site: right antecubital; rg5 23:02 Follow up: Response: No adverse reaction rg5 20:30 Drug: Labetalol IV 10 mg IV at calculated rate once Route: IV; Rate: calculated rate; rg5 Site: right antecubital; 23:03 Follow up: Response: Blood pressure is lowered; IV Status: Completed infusion rg5 20:30 Drug: Acetaminophen PO 1000 mg PO once Route: PO; rg5 23:02 Follow up: Response: No adverse reaction rg5 20:30 Drug: metoCLOPramide IVP 10 mg IVP once; over 1 to 2 minutes Route: IVP; Site: right rg5 antecubital; 23:02 Follow up: Response: No adverse reaction rg5 21:54 Drug: hydrALAZINE IVP 20 mg IVP once Route: IVP; Site: right antecubital; rg5 23:02 Follow up: Response: Blood pressure is lowered rg5 Medication: 20:29 VIS not applicable for this client. ha1 Outcome: 21:45 Decision to Hospitalize by Provider. rt 22:59 Admitted to ER Hold. Please see [facility] for further documentation. rg5 22:59 Condition: stable 22:59 Instructed on the need for admit, 06/19 14:28 Patient left the ED. ph Signatures: Dispatcher [employer] Petty Wilder RN RN Tiffanie Gordon RN RN ha1 Devorah Vega RN RN jj7 Mj Young MD MD rt Linda Clark 2 Sha Fisher RN RN rg5 Corrections: (The following items were deleted from the chart) 06/18 22:58 20:04 PMHx: CVA; jj7 rg5 22:58 20:04 PMHx: Diabetes - NIDDM; jj7 rg5 22:58 20:04 PMHx: Hypertension; jj7 rg5 22:58 20:04 PSHx: section; jj7 rg5 23:03 23:03 Response: Blood pressure is lowered rg5 rg5
[2024-06-18] MEDS ORDERED: HYDRALAZINE HCL 20 MG/ML VIAL ONE (21:51)
--- NOTE | 2024-06-18 22:07 | P.HP ---
Certification for Inpatient Patient admitted to: Inpatient With expected LOS: >2 Midnights Practitioner: I am a practitioner with admitting privileges, knowledge of patient current condition, hospital course, and medical plan of care. Services: Services provided to patient in accordance with Admission requirements found in Title 42 Section 412.3 of the Code of Federal Regulations Patient History Date of Service: 06/19/24 Reason for admission: Headache History of Present Illness: 43 yrs old female with past medical history of hypertension, hyperlipidemia, diabetes, history of CVA who came to the ER with intractable headache and numbness and weakness of the left side of the body especially arm started 3 days ago and has been progressively worsening and was brought to ER. Patient reports a left-sided numbness as well as heaviness in her arm or leg. Symptoms are intermittent. Denies any focal weakness at this time. Headache is bifrontal. Also with nausea and but no vomiting. Denies any fever or chills. No photophobia. No neck spasm. No sick contacts. Patient had a previous history of CVA, the clinical presentation at that time is very similar to the present . He was assessed in the ER and was admitted for to rule out CVA Allergies No Known Allergies Allergy (Verified 12/21/21 13:38) Home medications list reviewed: Yes Home Medications: Insulin Detemir [Levemir*] 10 units SQ BEDTIME #10 ml 09/25/17 Aspirin [Aspirin EC 81 MG] 81 mg PO DAILY #90 tablet. 10/07/21 Atorvastatin Calcium [Lipitor] 40 mg PO DAILY #30 tablet 10/07/21 Clopidogrel Bisulfate [Plavix*] 75 mg PO DAILY #30 tablet 10/07/21 Folic Acid 1 mg PO DAILY #90 tablet 10/07/21 Metoprolol Tartrate [Lopressor*] 50 mg PO BID #60 tab 10/07/21 lisinopriL [Prinivil*] 20 mg PO BID #60 tab 10/07/21 Amlodipine [Norvasc] 10 mg PO DAILY 06/19/24 Carvedilol [Coreg] 25 mg PO BID 06/19/24 Chlorthalidone 25 mg PO DAILY 06/19/24 Insulin 70/30 NPH/Reg Human [Novolin 70/30*] See Protocol SQ BID 06/19/24 Insulin Glargine,Hum.rec.anlog [Lantus] 15 unit SQ BID 06/19/24 Losartan Potassium 100 mg PO DAILY 06/19/24 Metformin HCl 850 mg PO BID 06/19/24 glipiZIDE [Glipizide] 10 mg PO BID 06/19/24 - Past Medical/Surgical History Diabetic: Yes Past Medical History: Reviewed- Non-Contributory -: Type II diabetic -: HTN -: History of CVA, January 2021 Past Surgical History: Reviewed- Non-Contributory -: Psychosocial/ Personal History: Patient lives at home - Family History Family History: Reviewed- Non-Contributory - Family History Mother -: Hypertension, Diabetes Father -: Diabetes - Social History Smoking Status: Never smoker Alcohol use: No CD- Drugs: No Caffeine use: Yes Review of Systems 10-point ROS is otherwise unremarkable Physical Examination - Vital Signs Temperature: 98.2 F Blood Pressure: 208/112 Pulse: 90 Respirations: 18 Pulse Ox (%): 94 - Physical Exam General: Alert, In no apparent distress, Oriented x3 HEENT: Atraumatic, Normocephalic Neck: Supple, JVD not distended Respiratory: Clear to auscultation bilaterally, Normal air movement Cardiovascular: Normal pulses, Regular rate/rhythm, Normal S1 S2 Capillary refill: <2 Seconds Gastrointestinal: Soft and benign, W/out hepatosplenomegaly Musculoskeletal: No clubbing, No swelling Integumentary: No rashes, No breakdown, No significant lesion Neurological: Normal speech, Normal strength at 5/5 x4 extr, Cranial nerves 3-12 intact, Normal reflexes 2+ Lymphatics: No axilla or inguinal lymphadenopathy - Studies Laboratory Data (last 24 hrs) 06/18/24 06/18/24 20:22 20:22 WBC 9.70 Hgb 8.2 L Hct 25.6 L Plt Count 398 Sodium 134 L Potassium 3.7 BUN 25 H Creatinine 1.54 H Glucose 273 H Magnesium 1.9 Total Bilirubin 0.5 AST < 10 L ALT 17 Alkaline Phosphatase 98 Assessment and Plan - Plan CVA/TIA No focal weakness Numbness of left-sided body Started on aspirin and statin CT CTA findings noted MRI brain ordered Monitor neuro vital signs Monitor under telemetry Hypertensive urgency Patient received labetalol and hydralazine in the ER Antihypertensives titrated Continue home medications and titrate as needed Hyperlipidemia Continue statin ELIAZAR on CKD stage II Monitor renal parameters Electrolytes monitor and replace accordingly Anemia of chronic disease Monitor H&H closely No overt bleeding at this time Diabetes Insulin sliding scale Accu-Chek q. ACH S Will get an A1c in a.m. GI/DVT prophylaxis Advanced directive full code Discharge Plan: Home Plan to discharge in: 48 Hours - Advance Directives Does patient have a Living Will: No Does patient have a Durable POA for Healthcare: No - Code Status/Comfort Care Code Status: Full Code Time Spent Managing Pts Care (In Minutes): 48
[2024-06-18] MEDS ORDERED: ALPRAZOLAM 0.25 MG TABLET PO PRN (22:08)
[2024-06-18] MEDS ORDERED: ACETAMINOPHEN 325 MG TABLET PO PRN (22:08)
[2024-06-18] MEDS ORDERED: HYDRALAZINE HCL 20 MG/ML VIAL IV PRN (22:11)
[2024-06-18] MEDS: METOPROLOL TAR 50 MG TAB PO SCH (22:12)
[2024-06-18] MEDS ORDERED: METOPROLOL TAR 25 MG TAB ONE (23:26)
[2024-06-18 23:36] VITALS: BMI 31.1
[2024-06-19 00:57] LABS: Specific Gravity 1.005 (1.005-1.030); Sqamous Epithelial <5 /HPF (None Seen); Urine Bacteria 20-50 /HPF (<20); Urine Bilirubin NEGATIVE (Negative); Urine Blood Negative (Negative); Urine Clarity Turbid (Clear); Urine Color Colorless (Yellow); Urine Culture Reflex Order NOT NEEDED; Urine Glucose 4+ (Over) (Negative); Urine Ketones NEGATIVE (Negative); Urine Microscopic Reflex YN ORDER UMIC; Urine Mucus Slight /HPF (None Seen); Urine Nitrite NEGATIVE (Negative); Urine Protein 1+ (Negative); Urine RBC None Seen /HPF (None Seen); Urine Urobilinogen Normal (Normal); Urine WBC <5 /HPF (<5)
[2024-06-19] MEDS ORDERED: ASPIRIN EC 81 MG TAB PO ONE (08:36)
[2024-06-19] MEDS ORDERED: METOPROLOL TAR 50 MG TAB ONE (08:36)
[2024-06-19] MEDS ORDERED: FOLIC ACID 1 MG TABLET ONE (08:36)
[2024-06-19] MEDS ORDERED: ENOXAPARIN 40 MG/0.4 ML SQ ONE (08:37)
[2024-06-19] MEDS ORDERED: lisinopriL 20 MG TAB ONE (08:37)
[2024-06-19] MEDS: FOLIC ACID 1 MG TABLET PO SCH (09:00)
[2024-06-19] MEDS: ENOXAPARIN 40 MG/0.4 ML SQ SCH (09:00)
[2024-06-19] MEDS: ASPIRIN EC 81 MG TAB PO SCH (09:00)
[2024-06-19] MEDS: lisinopriL 20 MG TAB PO SCH (09:00)
[2024-06-19 09:28] LABS: Absolute Basophils 0.1 K/uL (0-0.5); Absolute Eosinophils 0.2 K/uL (0-0.5); Absolute Lymphocytes (CBC) 2.9 K/uL (0.7-4.9); Absolute Monocytes 0.4 K/uL (0.1-1.3); Absolute Neutrophil 4.8 K/uL (1.8-8.0); Basophils % 0.9 % (0-1.3); Eosinophils % 1.9 % (0-4.4); Hematocrit 24.9 % (36.0-45.0); Hemoglobin 7.8 g/dL (12.0-15.0); MCH 23.7 pg (27.0-35.0); MCHC 31.3 g/dL (32.0-36.0); MCV 75.7 fL (80-100); MPV 9.3 fL (7.6-11.3); Monocytes % 4.7 % (3.3-12.3); Neutrophils % 57.5 % (41.7-73.7); Platelets 349 thou/uL (152-406); RBC Red Blood Cell Count 3.29 M/uL (3.86-4.86); Red Cell Distribution Width 16.3 % (12.1-15.2)
[2024-06-19 09:41] LABS: Albumin 2.7 g/dL (3.4-5.0); Albumin/Globulin Ratio 0.7 (1.1-1.8); Alkaline Phosphatase 86 U/L (45-117); Anion Gap 10.9 mEq/L (5.0-15.0); BUN Blood Urea Nitrogen 27 mg/dL (7-18); Bicarbonate 24 mEq/L (21-32); Bilirubin Total 0.5 mg/dL (0.2-1.0); Globulin 3.8 g/dL (2.3-3.5); Glomerular Filtration Rate 58 ml/min (=/>90); Glucose Level 221 mg/dL (74-106); Potassium 3.9 mEq/L (3.5-5.1); Protein, Total 6.5 g/dL (6.4-8.2); Sodium Level 137 mEq/L (136-145)
[2024-06-19 09:42] LABS: ALT/SGPT < 14 U/L (13-56); AST/SGOT < 10 U/L (15-37)
--- NOTE | 2024-06-19 11:59 | RAD REPORT ---
EXAM DESCRIPTION: MRI - Brain Wo Cont - 06/19/2024 11:50 am CLINICAL HISTORY: left sided numbness, and facial weakness Headache, drowsiness COMPARISON: Head Brain Wo Cont dated 06/18/2024 TECHNIQUE: Multi-sequence, multiplanar MR imaging of the brain was performed without contrast. FINDINGS: No intracranial hemorrhage, hydrocephalus or extra-axial fluid collections.Mild periventri cular deep white matter chronic microvascular ischemic changes. No edema or shift of midline structur es. No findings to suspect brain mass. DWI is negative for acute CVA. Midline structures are normally formed. Mastoid air cells and paranasal sinuses are clear. IMPRESSION: Negative for acute CVA or other acute intracranial finding.
[2024-06-19 12:59] LABS: LDL, Direct 123 mg/dL (100-129)
[2024-06-19] MEDS ORDERED: PNEUMOCOCCAL VACCINE 0.5 ML IMVAC ONE (14:00)
[2024-06-19] MEDS: CLOPIDOGREL 75 MG TABLET PO SCH (15:28)
--- NOTE | 2024-06-19 17:06 | EKG ---
Test Date: 2024-06-18 Test Time: 20:27:23 Opal Polisher: TERRELL MEASUREMENT RESULTS: Intervals: Rate: 87 AR: 146 QRSD: 88 QT: 362 QTc: 435 [place]: P: 50 AR: 146 QRS: 64 T: -38 INTERPRETIVE STATEMENTS: Normal sinus rhythm ST & T wave abnormality, consider inferior ischemia Abnormal ECG Compared to ECG 05/26/2022 14:49:41 ST (T wave) deviation now present Possible ischemia now present T-wave abnormality no longer present Electronically Signed On 06-19-24 17:04:37 CDT by Twin Neal
--- NOTE | 2024-06-19 19:29 | P.PN ---
Subjective Date of Service: 06/19/24 Chief Complaint: Headache Patient reports improvement in her left facial numbness and left-sided numbness. She denies any weakness. She denies any speech problem or swallowing difficulty. She reports headache. Physical Examination - Vital Signs Temperature: 98.2 F Blood Pressure: 208/112 Pulse: 90 Respirations: 18 Pulse Ox (%): 94 - Studies Laboratory Data (last 24 hrs) 06/18/24 06/18/24 20:22 20:22 WBC 9.70 Hgb 8.2 L Hct 25.6 L Plt Count 398 Sodium 134 L Potassium 3.7 BUN 25 H Creatinine 1.54 H Glucose 273 H Magnesium 1.9 Total Bilirubin 0.5 AST < 10 L ALT 17 Alkaline Phosphatase 98 Assessment And Plan - Plan Physical examination General: Alert and oriented x3, NAD, HEENT: Conjunctiva not pale, anicteric sclera Neck: Supple, no elevated JVD Heart: Heart sounds 1 and 2 normal, regular rhythm, normal rate, no pedal edema Lungs: Clear to auscultation bilaterally, adequate breath sounds bilaterally, no rhonchi or crackles. Abdomen: Soft, nondistended, nontender, normal bowel sounds. Extremities: No tenderness, no deformity Skin: Normal skin turgor, no rash, no nodules or ulcers. Neuro: No focal motor deficit. Normal speech. Psychiatry: Normal mood, no agitation. Assessment and Plan CVA/TIA No focal weakness Numbness of left-sided body MRI of the brain: No acute disease. Severely elevated blood pressure. Obtain echocardiogram. Neurochecks Monitor under telemetry Blood pressure control Hypertensive urgency Patient received labetalol and hydralazine in the ER Resume home antihypertensive. Hydralazine as needed for BP spikes. Hyperlipidemia LDL:123 Continue statin ELIAZAR IV hydration Monitor renal function Anemia of chronic disease Microcytic anemia Monitor H&H closely No overt bleeding at this time Check iron profile. Diabetes Insulin sliding scale Accu-Chek q. ACH S Will get an A1c in a.m. GI/DVT prophylaxis: Lovenox Advanced directive: full code
[2024-06-19] MEDS: INSULIN GLARGINE 100 UNIT/ML SQ SCH (20:20)
[2024-06-19] MEDS: ATORVASTATIN 40 MG TAB PO SCH (20:21)
[2024-06-19] MEDS: carvediloL 25 MG TAB PO SCH (20:22)
[2024-06-19] MEDS: AMLODIPINE 10 MG TAB PO SCH (20:22)
[2024-06-20] MEDS: ONDANSETRON 4 MG/2 ML VIAL IV PRN (04:19)
[2024-06-20 06:00] LABS: Absolute Basophils 0.1 K/uL (0-0.5); Absolute Eosinophils 0.2 K/uL (0-0.5); Absolute Lymphocytes (CBC) 3.3 K/uL (0.7-4.9); Absolute Monocytes 0.5 K/uL (0.1-1.3); Absolute Neutrophil 5.7 K/uL (1.8-8.0); Basophils % 0.7 % (0-1.3); Eosinophils % 2.1 % (0-4.4); Hematocrit 23.8 % (36.0-45.0); Hemoglobin 7.5 g/dL (12.0-15.0); Lymphocytes % 34.1 % (15.3-44.8); MCH 23.8 pg (27.0-35.0); MCHC 31.7 g/dL (32.0-36.0); MCV 75.1 fL (80-100); MPV 9.3 fL (7.6-11.3); Monocytes % 5.1 % (3.3-12.3); Platelets 321 thou/uL (152-406); RBC Red Blood Cell Count 3.17 M/uL (3.86-4.86); Red Cell Distribution Width 16.4 % (12.1-15.2)
[2024-06-20 06:20] LABS: Anion Gap 9.1 mEq/L (5.0-15.0); Potassium 4.1 mEq/L (3.5-5.1)
[2024-06-20 08:28] VITALS: BP 134/62; TEMP 98
[2024-06-20 08:45] VITALS: O2SAT 97
[2024-06-20] MEDS: CHLORTHALIDONE 25 MG TAB PO SCH (08:58)
--- NOTE | 2024-06-20 10:56 | P.DS ---
Admission Date: 06/18/24 Discharge Date: 06/20/24 Disposition: ROUTINE DISCHARGE Discharge Condition: FAIR Reason for Admission: Headache Brief History of Present Illness: 43 yrs old female with past medical history of hypertension, hyperlipidemia, diabetes, history of CVA who came to the ER with intractable bifrontal headache and numbness and weakness of the left side of the body especially arm of 3 days duration. Patient reported left-sided numbness as well as heaviness in her arm or leg. She denied any limb weakness. Headache is associated with nausea and but no vomiting. She was assessed in the ER and was admitted for to rule out CVA. Hospital Course: Patient admitted to the medical floor and the following medical problems addressed: CVA/TIA No focal weakness Numbness of left-sided body MRI of the brain: No acute disease. Severely elevated blood pressure which was managed with her home antihypertensives. Patient is ambulatory, has no focal weakness, no problems swallowing or speech. Hypertensive urgency Patient received labetalol and hydralazine in the ER Resumed home antihypertensive. Blood pressure readings have improved. Hyperlipidemia LDL:123 Continued statin ELIAZAR Resolved with IV hydration Anemia of chronic disease Microcytic anemia No overt bleeding at this time Low serum iron. Oral iron supplementation recommended. Diabetes Managed with insulin sliding scale and Semglee Hb A1c 8.7 Vital Signs/Physical Exam: Temp Pulse Resp BP Pulse Ox 98 F 70 15 134/62 97 06/20/24 08:00 06/20/24 08:59 06/20/24 08:00 06/20/24 08:59 06/20/24 08:00 General: Alert, In no apparent distress, Oriented x3 HEENT: Mucous membr. moist/pink Neck: Supple, JVD not distended Respiratory: Clear to auscultation bilaterally, Normal air movement Cardiovascular: No edema, Regular rate/rhythm, Normal S1 S2 Capillary refill: <2 Seconds Gastrointestinal: Normal bowel sounds, Soft and benign, Non-distended, No tenderness Musculoskeletal: No swelling Integumentary: No rashes, No cyanosis Neurological: Normal speech, Normal strength at 5/5 x4 extr, Sensation intact Laboratory Data at Discharge: WBC 9.80 thou/uL (4.3-10.9) 06/20/24 05:36 Hgb 7.5 g/dL (12.0-15.0) L 06/20/24 05:36 Hct 23.8 % (36.0-45.0) L 06/20/24 05:36 Plt Count 321 thou/uL (152-406) 06/20/24 05:36 Sodium 136 mEq/L (136-145) 06/20/24 05:36 Potassium 4.1 mEq/L (3.5-5.1) 06/20/24 05:36 BUN 25 mg/dL (7-18) H 06/20/24 05:36 Creatinine 1.01 mg/dL (0.55-1.02) 06/20/24 05:36 Glucose 164 mg/dL (74-106) H 06/20/24 05:36 Magnesium 1.9 mg/dL (1.6-2.4) 06/18/24 20:22 Total Bilirubin 0.5 mg/dL (0.2-1.0) 06/19/24 08:52 AST < 10 U/L (15-37) L 06/19/24 08:52 ALT < 14 U/L (13-56) 06/19/24 08:52 Alkaline Phosphatase 86 U/L (45-117) 06/19/24 08:52 LDL Cholesterol Direct 123 mg/dL (100-129) 06/19/24 08:52 Home Medications: Insulin Detemir [Levemir*] 10 units SQ BEDTIME #10 ml 09/25/17 Atorvastatin Calcium [Lipitor] 40 mg PO DAILY #30 tablet 10/07/21 Amlodipine [Norvasc*] 10 mg PO DAILY 06/19/24 Carvedilol [Coreg] 25 mg PO BID 06/19/24 Chlorthalidone 25 mg PO DAILY 06/19/24 Losartan Potassium 100 mg PO DAILY 06/19/24 Metformin HCl 850 mg PO BID 06/19/24 glipiZIDE [Glipizide] 10 mg PO BID 06/19/24 Aspirin [Aspirin EC 81 MG] 81 mg PO DAILY #90 tablet. 06/20/24 Clopidogrel Bisulfate [Plavix*] 75 mg PO DAILY #30 tablet 06/20/24 Folic Acid 1 mg PO DAILY #90 tablet 06/20/24 New Medications: Aspirin [Aspirin EC 81 MG] 81 mg PO DAILY #90 tablet. Folic Acid 1 mg PO DAILY #90 tablet Clopidogrel Bisulfate [Plavix*] 75 mg PO DAILY #30 tablet Diet: AHA Activity: Ad rodriguez Followup: JOZEF HALLMAN [Primary Care Provider] - 1-2 Weeks Time spent managing pt's care (in minutes): 36
[2024-06-20] MEDS ORDERED: PNEUMOCOCCAL VACCINE 0.5 ML IMVAC ONE (14:00)
--- NOTE | 2024-06-21 08:40 | ECHO ---
HEIGHT: 5 ft 2 in WEIGHT: 172 lb 0 oz DATE OF STUDY: 06/20/[address]: Garret Jewell MD 2-DIMENSIONAL: YES M.MODE: YES DOPPLER: YES COLOR FLOW: YES TDS: PORTABLE: YES DEFINITY: BUBBLE STUDY: DIAGNOSIS: TRANSIENT ISCHEMIC ATTACK/ STROKE CARDIAC HISTORY: CATHERIZATION: SURGERY: PROSTHETIC VALVE: PACEMAKER: MEASUREMENTS (cm) DIASTOLIC (NORMALS) SYSTOLIC (NORMALS) IVSd 1.4 (0.6-1.2) LA Diam 4.0 (1.9-4.0) LVEF 60-65% LVIDd 3.7 (3.5-5.7) LVIDs 2.2 (2.0-3.5) %FS 40% LVPWd 1.4 (0.6-1.2) Ao Diam 2.2 (2.0-3.7) 2 DIMENSIONAL ASSESSMENT: RIGHT ATRIUM: NORMAL LEFT ATRIUM: NORMAL RIGHT VENTRICLE: NORMAL LEFT VENTRICLE: MODERATE LEFT VENTRICULAR HYPERTROPHY TRICUSPID VALVE: NORMAL MITRAL VALVE: NORMAL PULMONIC VALVE: NORMAL AORTIC VALVE: NORMAL PERICARDIAL EFFUSION: NONE AORTIC ROOT: NORMAL LEFT VENTRICULAR WALL MOTION: NORMAL DOPPLER/COLOR FLOW: NORMAL COMMENTS: 1. MODERATE CONCENTRIC LEFT VENTRICULAR HYPERTROPHY 2. NORMAL LEFT VENTRICULAR SYSTOLIC FUNCTION, EJECTION FRACTION 60-65%, NORMAL WALL MOTION 3. NORMAL DIASTOLIC FUNCTION TECHNOLOGIST: MACKENZIE COTTON
[2024-06-21] MEDS ORDERED: LOSARTAN POTASSIUM 50 MG TABLET PO SCH (09:00)
== END 2024-06-20 12:14 | disposition home or self-care (01) | DRG 69 ==
LOC: ER 19:37 → ERHOLD 22:08 → 2ND 06-19 13:48
PROVIDERS: ADMIT Family Medicine; ATTEND Internal Medicine
DX: G45.9 Transient cerebral ischemic attack, unspecified (principal); I16.1 Hypertensive emergency; N17.9 Acute kidney failure, unspecified; I12.9 Hypertensive chronic kidney disease with stage 1 through stage 4 chronic kidney disease, or unspecified chronic kidney disease; N18.2 Chronic kidney disease, stage 2 (mild); E11.22 Type 2 diabetes mellitus with diabetic chronic kidney disease; D63.1 Anemia in chronic kidney disease; D50.9 Iron deficiency anemia, unspecified; E78.5 Hyperlipidemia, unspecified; R20.0 Anesthesia of skin; Z79.4 Long term (current) use of insulin; Z79.82 Long term (current) use of aspirin; Z79.84 Long term (current) use of oral hypoglycemic drugs; Z79.02 Long term (current) use of antithrombotics/antiplatelets; Z86.73 Personal history of transient ischemic attack (TIA), and cerebral infarction without residual deficits; Z79.899 Other long term (current) drug therapy
CPT/HCPCS: 36415; 70450; 70551; 71045; 80048; 80053; 80076; 81001; 82947; 83036; 83540; 83735; 83880; 84466; 84484; 85025; 93005; 93306; 94760; 96365; 96366; 96375; 97110; 97112; 97116; 97161; 99285; J0360; J1200; J1650; J2405; J2765